=== PATIENT | female | born 1945 | race Caucasian/White ===

== ENCOUNTER → 2018-10-12 10:42 | Outpatient (CLI) | payer MEDICARE, OTHER, SELFPAY ==
--- NOTE | 2018-10-12 | DI.RAD.S_ITS ---
PROCEDURE: XR CERVICAL SPINE 2V OR 3V INDICATIONS: NECK PAIN WITH RADICULOPATHY TECHNIQUE: 5 view(s) of the cervical spine were acquired. COMPARISON: [facility], CERVICAL SPINE 4 OR 5 VIEWS, 08/01/2013, 9:19. FINDINGS: Bones: No fractures or dislocations to the C7 level. Odontoid view is suboptimal. There is moderate degenerative disc disease at T5-T6 and T6-T7. Multilevel facet arthropathy, most pronounced C2-C3, C3-C4 -C5 and C4-C5 on the left, C3-C4, C4-C5 and C5-C6 on the right. No suspicious bony lesions. Flexion and extension, there is reduced range of motion in the lower cervical spine. Soft tissues: No prevertebral soft tissue swelling. IMPRESSION: Degenerative disc and facet disease. Dictated by: Rosalva Walker M.D. on 10/12/2018 at 14:03 Approved by: Rosalva Walker M.D. on 10/12/2018 at 14:06
== END ==
PROVIDERS: Family Provider Family Medicine; PCP Family Medicine; Visit Provider Family Medicine
DX: M47.22 Other spondylosis with radiculopathy, cervical region (principal); M51.14 Intervertebral disc disorders with radiculopathy, thoracic region
CPT/HCPCS: 72050

== ENCOUNTER → 2018-10-20 12:45 | Outpatient (CLI) | payer MEDICARE, OTHER, SELFPAY ==
--- NOTE | 2018-10-20 | DI.MRI.S_ITS ---
PROCEDURE: MR CERVICAL SPINE WO CON INDICATIONS: NECK PAIN TECHNIQUE: Noncontrast sagittal T1 spin echo and T2 fast spin echo, sagittal STIR, foraminal oblique sagittal T2 fast spin echo, and axial gradient echo or T2 fast spin echo through the cervical spine. COMPARISON: [facility], , CERVICAL SPINE 4 OR 5 VIEWS, 08/01/2013, 9:19. [facility], CR, XR CERVICAL SPINE 2V OR 3V, 10/12/2018, 10:52. FINDINGS: Image quality: Excellent. Alignment and Curvature: There is mild anterolisthesis seen at C5-C6. Bone Marrow: Marrow demonstrates normal overall signal. Spinal Cord: Visualized spinal cord has normal size and signal. No cerebellar tonsillar herniation. Paraspinous Soft Tissues: No paravertebral masses. Prevertebral soft tissues are normal in thickness. C2-C3: The disc height is well-preserved. Loss of disc signal is seen at this level. Minimal disc osteophyte complex is seen. No neural foraminal narrowing is seen. Mild central canal narrowing is seen. C3-C4: The disc height is well-preserved. Loss of disc signal is seen at this level. Mild disc osteophyte complex is seen, with a mild central disc osteophyte protrusion, as on series 5 image 18. Mild facet joint hypertrophy is seen. Moderate to severe bilateral neural foraminal narrowing is seen, left worse than right. Moderate central canal narrowing is seen, with associated mass effect upon the ventral spinal cord. C4-C5: The disc height is well-preserved. Loss of disc signal is seen at this level. A mild degree of generalized disc osteophyte complex is seen. There is minimal right-sided and moderate left-sided facet hypertrophy seen. There is mild right-sided and moderate to severe left-sided neural foraminal narrowing seen. Moderate central canal narrowing is seen, with associated mass effect upon the ventral spinal cord. C5-C6: Mild anterolisthesis is seen at this level. Mild loss of disc height is seen. Loss of disc signal is seen. Moderate disc osteophyte complex is seen at this level. There is mild right-sided and moderate left-sided neural foraminal narrowing. Moderate central canal narrowing is seen, with mild associated mass effect upon the ventral spinal cord, as on series 5 image 26. C6-C7: Moderate loss of disc height is seen. Loss of disc signal is seen. Moderate generalized disc osteophyte complex is seen. Mild facet joint hypertrophy is seen. No neural foraminal narrowing is seen. Moderate central canal narrowing is seen. There is associated mass effect upon the ventral spinal cord, as on series 5 image 30. C7-T1: Mild to moderate loss of disc height and disc signal are seen. A mild degree of generalized disc osteophyte complex is seen. No neural foraminal narrowing is seen. Mild central canal narrowing is seen. IMPRESSION: Multiple levels of cervical spine degenerative change are seen, including moderate to severe bilateral neural foraminal narrowing at C3-C4. Moderate central canal narrowing is seen at C3-C4, C4-C5, C5-C6, and C6-C7, with associated mass effect upon the ventral spinal cord. Dictated by: Niels Haines M.D. on 10/20/2018 at 13:56 Approved by: Niels Haines M.D. on 10/20/2018 at 14:02
== END ==
PROVIDERS: Family Provider Family Medicine; PCP Family Medicine; Visit Provider Family Medicine
DX: M54.2 Cervicalgia (principal); M47.812 Spondylosis without myelopathy or radiculopathy, cervical region; M48.02 Spinal stenosis, cervical region
CPT/HCPCS: 72141

== ENCOUNTER → 2018-10-28 10:09 | Outpatient (CLI) | payer MEDICARE, OTHER, SELFPAY | PROVIDERS: PCP Family Medicine; Visit Provider Family Medicine | DX: M54.2 Cervicalgia (principal); M79.603 Pain in arm, unspecified | CPT/HCPCS: 95885; 95886; 95911 ==

== ENCOUNTER → 2018-11-04 08:44 | Outpatient (CLI) | payer MEDICARE, OTHER, SELFPAY ==
--- NOTE | 2018-11-04 | DI.MG.S_ITS ---
BILATERAL DIGITAL SCREENING MAMMOGRAM 3D/2D WITH CAD POST LUMPECTOMY: 11/04/2018 CLINICAL: Routine screening. Personal history of left breast cancer. Family history of breast cancer. Comparison is made to exams dated: 10/26/2017 mammogram, 07/10/2016 mammogram, 10/04/2014 mammogram, and 08/29/2013 mammogram - [facility]. There are scattered fibroglandular elements in both breasts. Current study was also evaluated with a Computer Aided Detection (CAD) system. There are benign post operative findings in the left breast. No significant masses, calcifications, or other findings are seen in either breast. There has been no significant interval change. IMPRESSION: There is no mammographic evidence of malignancy. A 1 year screening mammogram is recommended. This exam was interpreted at Station ID: [id number]. NOTE: For mammograms, a report in lay terms will be sent to the patient. Approximately 15% of breast malignancies will not be visualized mammographically. In the management of a palpable breast mass, a negative mammogram must not discourage biopsy of a clinically suspicious lesion. Electronically Signed By: Florian borjas/apple:11/04/2018 12:52:26 letter sent: Normal Exam ACR BI-RADS Category 2: Benign Finding(s) 3342F
== END ==
PROVIDERS: PCP Family Medicine; Visit Provider Family Medicine
DX: Z12.31 Encounter for screening mammogram for malignant neoplasm of breast (principal); Z85.3 Personal history of malignant neoplasm of breast; Z80.3 Family history of malignant neoplasm of breast
CPT/HCPCS: 77063; 77067

== ENCOUNTER 2019-01-11 11:54 | Day surgery (SDC) | payer MEDICARE, OTHER, SELFPAY ==
[2019-01-11] VITALS (10 sets, daily range): BP systolic 108–141; BP diastolic 34–73; PULSE 61–84; RESP 9–16; TEMP 36.4–36.7; O2SAT 88–98; BMI 29.1
[2019-01-11] MEDS: LACTATED RINGERS 1,000 ML 200 ML IV ×2 (12:39→15:37)
[2019-01-11] MEDS: fentaNYL 250 MCG/5 ML INJ IV ×2 (15:03→15:04)
[2019-01-11] MEDS: MIDAZOLAM 5 MG/5 ML VIAL IV ×2 (15:04→15:05)
--- NOTE | 2019-01-11 15:33 | SUR.PHASEI ---
stable pacu stay, slow to wake up.
--- NOTE | 2019-01-11 15:34 | PM.OP.ENDO ---
Operative Date/Time/Diagnoses Date of procedure: 01/11/19 Time of procedure: 15:00 Pre-op diagnosis: Screening colonoscopy Post-op diagnosis: same Procedure & Clinicians Study performed: Routine screening colonoscopy Same procedure as scheduled: Yes Indications: colorectal cancer screen Surgeon: Daniel Lucero Procedure Notes SCOAP/Timeout: yes Procedure in detail: Patient was given initial sedative with 2 mg of midazolam and 50 of fentanyl. Buttocks were spread perianal area was inspected without abnormality a generously lubricated index finger was used to perform a rectal exam no polyps masses or abnormalities were palpated 160 cm colonoscope was inserted approximately 2 cm through the anal verge. The rectum was insufflated and the scope was then passed through the rectal valves. The rectal sigmoid junction was quite acutely a kinked with some difficulty we were able to cross this. We then moved through a tortuous sigmoid colon into the ascending colon without too much difficulty. the splenic flexure was reached with transmitted cardiac pulsations in the triangular folds of the transverse colon were then encountered. The hepatic flexure was quite acute but with sometime while were able to enter into the right colon. The final segment of the right colon proved to be markedly difficult with a significant paradoxical motion. Dr Bulmaro Goldstein - assisted with the final approach to the cecum. This required manual pressure over the cecum. Withdrawel from cecum was timed at over 10min. No polyps or other neoplastic pathology identified, 2 -3 small sigmoid diverticula identified . prep adiquate. Total Fentanyl 175mcg Total Midazalam 12mg Scope withdrawal time: 12min Specimen(s): none sent Complications: none Impression: No neoplastic changes, several sigmoid diverticula - small Recommendations: Colonscopy in 10 years Plan for aftercare: to pacu and then home Follow up: as needed Disposition: PACU
--- NOTE | 2019-01-11 16:49 | SUR.PHASEII ---
Patient transfered to OPD. VSS. O2 sat on room air 93-98%. Patient awake and talking. Tolerating PO without nausea.
--- NOTE | 2019-01-11 16:50 | SUR.PHASEII ---
1610: O2 sats 88-93% on Room air when VS checked before getting dressed. Desats when dozes off. 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 O2 sat monitoring at bedside.
--- NOTE | 2019-01-11 18:25 | PM.HP.1 ---
History of Present Illness Date Patient Seen: 01/11/19 Time Patient Seen: 13:00 Chief complaint: 33142 Narrative: 73-year-old woman presents for same-day colonoscopy. Patient's last screening colonoscopy was approximately 13 years ago at that time she had no pathology identified and was told to return in approximately 10 years. She is without bowel complaints having regular formed stool. No bleeding per rectum no family members with a history of colorectal cancer history of colon polyps. She is eager to proceed. Patient History Medical History (Updated 01/11/19 @ 18:26 by Daniel Lucero MD) Hyperlipidemia (Acute) Hypertension (Acute) Surgical History (Updated 01/11/19 @ 18:27 by Daniel Lucero MD) Previous section (Acute) Family History (Updated 01/11/19 @ 18:28 by Daniel Lucero MD) Unknown Cancer Social History household members: none Family & Social History Family History (Updated 01/11/19 @ 18:28 by Daniel Lucero MD) Unknown Cancer Social History: household members none Meds Home Medications Medication Instructions Recorded Confirmed Type atorvastatin 20 mg PO QPM 01/11/19 01/11/19 History citalopram 20 mg PO DAILY 01/11/19 01/11/19 History triamterene 37.5 mg PO DAILY 01/11/19 01/11/19 History Allergies Allergy/AdvReac Type Severity Reaction Status Date / Time No Known Drug Allergies Allergy Verified 01/11/19 12:23 Review of Systems Constitutional Constitutional: Denies fever(s) Eyes Eyes: Denies bulging eyes ENT Ears, Nose, Mouth, and Throat: No lip swelling Cardiovascular Cardiovascular: Denies generalize swelling Respiratory Respiratory: Denies stridor Gastrointestinal Gastrointestinal: Denies coffee ground emesis Musculoskeletal Musculoskeletal: Denies loss of height Integumentary/Breasts Skin/Breast: Denies wounds Neurologic Neurologic: Denies abnormal speech and Denies confusion Psychiatric Psychiatric: Denies confusion Endocrine Endocrine: Denies deepening of the voice Hematologic/Lymphatic Hematologic/Lymphatic: Denies lymphadenopathy Allergic/Immunologic Allergic/Immunologic: Denies lip swelling Exam Vital Signs (past 8 hours): - 01/11/19 12:16 01/11/19 15:25 01/11/19 15:30 Temperature 97.8 F 98.1 F Pulse Rate 84 66 67 Respiratory Rate 16 10 L 9 L Blood Pressure 141/73 H 108/42 L 119/50 L Pulse Oximetry 96 97 95 01/11/19 15:35 01/11/19 15:40 01/11/19 15:45 Temperature 97.5 F L Pulse Rate 65 64 61 Respiratory Rate 11 L 10 L 10 L Blood Pressure 109/34 L 125/63 131/62 Pulse Oximetry 97 97 93 01/11/19 16:00 01/11/19 16:10 01/11/19 16:22 Temperature 97.6 F Pulse Rate 65 61 Respiratory Rate 12 14 16 Blood Pressure 116/34 L 118/57 L Pulse Oximetry 96 88 L 98 01/11/19 16:37 Temperature 97.7 F Pulse Rate 76 Respiratory Rate 16 Blood Pressure 121/56 L Pulse Oximetry 97 Oxygen Delivery Method Room Air Oxygen Flow Rate 2 Narrative Exam Narrative: Well-appearing woman no acute distress, excellent historian Mucous membranes moist, sclerae nonicteric, no thyromegaly, No cervical lymphadenopathy Lungs clear to auscultation bilaterally Regular rate and rhythm no murmurs gallops or rubs Abdomen soft nontender nondistended well-healed Pfannenstiel incision. absence of inguinal hernia this or umbilical hernias. Periphery warm and well perfused Assessment & Plan Assessment & Plan narrative: 73-year-old female presents for same-day colonoscopy for screening. Last colonoscopy over 10 years ago and she is due. Risks benefits alternatives discuss risks including perforation, , non identification of the existing polyp her lesion, all discussed. All questions answered, patient is eager to proceed.
== END 2019-01-11 16:45 ==
LOC: ENDO 11:56
PROVIDERS: PCP Family Medicine; Visit Provider Surgery
PROC: 0DJD8ZZ Inspection of Lower Intestinal Tract, Via Natural or Artificial Opening Endoscopic (ICD-10-PCS; CPT 45378; principal; 2019-01-11 14:00)
DX: Z12.11 Encounter for screening for malignant neoplasm of colon (principal); E78.5 Hyperlipidemia, unspecified; I10 Essential (primary) hypertension; K57.30 Diverticulosis of large intestine without perforation or abscess without bleeding
CPT/HCPCS: G0121; J2250; J3010

== ENCOUNTER → 2019-10-04 09:46 | Outpatient (CLI) | payer MEDICARE, OTHER, SELFPAY | PROVIDERS: PCP Family Medicine; Visit Provider Family Medicine | DX: Z78.0 Asymptomatic menopausal state (principal); Z85.3 Personal history of malignant neoplasm of breast; Z87.891 Personal history of nicotine dependence | CPT/HCPCS: 77080 ==

== ENCOUNTER → 2019-11-14 07:40 | Outpatient (CLI) | payer MEDICARE, OTHER, SELFPAY ==
--- NOTE | 2019-11-14 | DI.MG.S_ITS ---
BILATERAL DIGITAL SCREENING MAMMOGRAM 3D/2D WITH CAD POST LUMPECTOMY: 11/14/2019 CLINICAL: Routine screening. Personal history of left breast cancer. Family history of breast cancer. Comparison is made to exams dated: 11/04/2018 mammogram, 10/26/2017 mammogram, and 07/10/2016 mammogram - [facility]. There are scattered fibroglandular elements in both breasts. Current study was also evaluated with a Computer Aided Detection (CAD) system. There are benign post operative findings in the left breast. No significant masses, calcifications, or other findings are seen in either breast. There has been no significant interval change. IMPRESSION: There is no mammographic evidence of malignancy. A 1 year screening mammogram is recommended. This exam was interpreted at Station ID: [id number]. NOTE: For mammograms, a report in lay terms will be sent to the patient. Approximately 15% of breast malignancies will not be visualized mammographically. In the management of a palpable breast mass, a negative mammogram must not discourage biopsy of a clinically suspicious lesion. Electronically Signed By: Suyapa harrington/apple:11/14/2019 21:39:09 letter sent: Normal Exam ACR BI-RADS Category 2: Benign Finding(s) 3342F
== END ==
PROVIDERS: PCP Family Medicine; Referring Provider Family Medicine; Visit Provider Family Medicine
DX: Z12.31 Encounter for screening mammogram for malignant neoplasm of breast (principal); Z85.3 Personal history of malignant neoplasm of breast; Z80.3 Family history of malignant neoplasm of breast
CPT/HCPCS: 77063; 77067

== ENCOUNTER → 2020-02-08 11:44 | Outpatient (CLI) | payer MEDICARE, OTHER, SELFPAY ==
--- NOTE | 2020-02-08 11:45 | DI.RAD.S_ITS ---
PROCEDURE: XR SHOULDER RT MIN 2V INDICATIONS: Chronic progressive shoulder pain TECHNIQUE: 3 views of the shoulder were acquired. COMPARISON: None. FINDINGS: Bones: No fractures or dislocations. No suspicious bony lesions. Visualized ribs appear intact. Soft tissues: No suspicious soft tissue calcifications. 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 Dictated by: David Mark M.D. on 02/08/2020 at 12:09 Approved by: David Mark M.D. on 02/08/2020 at 12:26
== END ==
PROVIDERS: PCP Family Medicine; Referring Provider Physical Medicine & Rehabilitation; Visit Provider Physical Medicine & Rehabilitation
DX: M25.511 Pain in right shoulder (principal); M19.011 Primary osteoarthritis, right shoulder; M75.41 Impingement syndrome of right shoulder; S43.109A Unspecified dislocation of unspecified acromioclavicular joint, initial encounter; M50.00 Cervical disc disorder with myelopathy, unspecified cervical region; G89.29 Other chronic pain
CPT/HCPCS: 20611; 73030; 99213; J0702

== ENCOUNTER → 2020-09-10 17:36 | Outpatient (CLI) | payer MEDICARE, OTHER, SELFPAY ==
--- NOTE | 2020-09-10 17:38 | DI.MRI.S_ITS ---
PROCEDURE: MR HEAD/BRAIN WO/W CON INDICATIONS: SYNCOPE AND COLLAPSE TECHNIQUE: Noncontrast axial T1 spin echo, axial T2 fast spin echo, sagittal and axial FLAIR, coronal T2 fast spin echo, axial gradient echo, axial diffusion and ADC through the brain. After the administration of contrast, axial and coronal T1 spin echo with fat saturation through the brain. COMPARISON: None. FINDINGS: Image quality: Excellent. CSF spaces: Basal cisterns are patent. No extra-axial fluid collections. Ventricles are normal in size and shape. Brain: No midline shift. No intracranial bleeds or masses. No abnormal intracranial enhancement. There is cerebral volume loss for age. There is periventricular white matter chronic small vessel ischemic change. The brainstem appears normal. Diffusion-weighted images demonstrate no acute ischemic insults. No chronic ischemic insults. Normal intravascular flow voids are present. Skull and face: Calvarial marrow is normal in signal. Orbits appear normal. Sinuses: Sinuses and mastoids appear clear. IMPRESSION: Unremarkable intracranial study for age, without an imaging explanation found for the patient's presenting history. No findings of acute or subacute infarction can be seen. No masses or abnormal enhancement can be seen. Dictated by: Niels Haines M.D. on 09/10/2020 at 17:49 Approved by: Niels Haines M.D. on 09/10/2020 at 17:50
== END ==
PROVIDERS: PCP Family Medicine; Referring Provider Family Medicine; Visit Provider Family Medicine
DX: R55 Syncope and collapse (principal)
CPT/HCPCS: 70553; A9579

== ENCOUNTER 2020-09-10 20:52 | Observation (INO) | payer MEDICARE, OTHER, SELFPAY ==
[2020-09-10] VITALS (7 sets, daily range): BP systolic 140–154; BP diastolic 58–74; PULSE 69–87; RESP 15–20; TEMP 37.1; O2SAT 93–97; BMI 25.5
--- NOTE | 2020-09-10 21:05 | DI.RAD.S_ITS ---
PROCEDURE: XR CHEST 1V INDICATIONS: chest pain TECHNIQUE: One view of the chest was acquired. COMPARISON: None. FINDINGS: Surgical changes and devices: Surgical clips are projected over the left hemithorax. Lungs and pleura: Trace airspace opacities are present within the left upper lung. The lungs are otherwise clear. Mediastinum: Mediastinal contours appear normal. Heart size is normal. Bones and chest wall: No suspicious bony lesions. Overlying soft tissues appear unremarkable. IMPRESSION: Subtle left upper lung pulmonary radiopacities. Differential considerations include scar, atelectasis, aspiration/infection. No prior studies are available for comparison. Short interval followup is recommended with resolution of the patient's symptoms to ensure there is no underlying pulmonary pathology. Dictated by: Jazzy Varghese M.D. on 09/10/2020 at 21:59 Approved by: Jazzy Varghese M.D. on 09/10/2020 at 22:01
--- NOTE | 2020-09-10 21:25 | ED.WEAKNESS ---
HPI - Weakness General Chief complaint: Weakness Stated complaint: feels faint,exhausted,headaches past week Time Seen by Provider: 09/10/20 21:07 Source: patient and family Mode of arrival: Family Vehicle Limitations: no limitations History of Present Illness HPI Narrative: 75-year-old female former smoker with a history of hypertension, hyperlipidemia presents with her family and a chief complaint of a gradual decline over the past week or so in her overall health and energy. She had been feeling generally weak and actually had 2 syncopal episodes that seem to be related to change in position about a week ago. She has been nauseated but denies any vomiting and has had a few loose stools but not anything significant. She denies any focal neurologic findings such as blurred vision, trouble with speech or unilateral weakness. She denies any chest pain or shortness of breath. She denies any new medications or change in diet. She denies runny nose, sore throat or cough. She denies any obvious exposure to persons known to have COVID Related Data Home Medications Medication Instructions Recorded Confirmed aspirin 81 mg tablet,delayed 81 mg PO DAILY 02/08/20 09/11/20 release atorvastatin 40 mg tablet mg PO DAILY tab 02/08/20 03/28/20 calcium PO BID 02/08/20 03/28/20 cholecalciferol (vitamin D3) 50 50 mcg PO DAILY 02/08/20 09/11/20 mcg (2,000 unit) capsule escitalopram oxalate 20 mg tablet 20 mg PO BEDTIME 02/08/20 09/11/20 triamterene 37.5 1 cap PO DAILY cap 02/08/20 09/11/20 mg-hydrochlorothiazide 25 mg capsule Previous Rx's Medication Instructions Recorded celecoxib 200 mg capsule See Rx Instructions .ROUTE 06/25/20 .COMPLEX #30 cap Allergies Allergy/AdvReac Type Severity Reaction Status Date / Time No Known Drug Allergies Allergy Verified 09/10/20 21:04 Review of Systems Constitutional Constitutional: Denies chills, Denies fatigue, Denies fever(s), Denies frequent falls, Denies lethargy and Denies weakness Eyes Eyes: Denies change in vision, Denies eye discharge, Denies irritation and Denies loss of vision ENT Ears, Nose, Mouth, and Throat: Denies change in voice, Denies dizziness, Denies neck pain, Denies sore throat and Denies throat swelling Cardiovascular Cardiovascular: Denies chest pain, Denies irregular heart rhythm, Denies lightheadedness, Denies palpitations, Denies dyspnea, Denies dyspnea on exertion and Denies orthopnea Respiratory Respiratory: Denies cough, Denies dyspnea, Denies dyspnea on exertion and Denies wheezing Gastrointestinal Gastrointestinal: Denies abdominal pain, Denies change in bowel habits, Denies diarrhea, Denies nausea and Denies vomiting Musculoskeletal Musculoskeletal: Denies neck pain and Denies numbness Integumentary/Breasts Skin/Breast: Denies pruritus, Denies erythema, Denies rash and Denies wounds Neurologic Neurologic: Denies behavioral changes, Denies confusion, Denies dizziness, Denies frequent falls, Denies loss of vision, Denies numbness and Denies weakness Psychiatric Psychiatric: Denies anxiety, Denies behavioral changes, Denies confusion, Denies depression, Denies homicidal ideation and Denies suicidal ideation Endocrine Endocrine: Denies fatigue, Denies flushing and Denies palpitations Hematologic/Lymphatic Hematologic/Lymphatic: Denies easy bruising Allergic/Immunologic Allergic/Immunologic: Denies urticaria, Denies throat swelling and Denies wheezing Patient History Medical History (Updated 09/11/20 @ 01:13 by Daniela Renee RN) 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 Well-nourished, well-developed patient, in moderate distress. Breathless with exertion. Weak appearing HEAD: Atraumatic. Normocephalic. EYES: Pupils equal round and reactive. Extraocular motions intact. No scleral icterus. No injection or drainage. ENT: Nose without bleeding, purulent drainage. Throat without erythema, tonsillar hypertrophy or exudate. Airway patent. NECK: Trachea midline. Non tender CARDIOVASCULAR: Regular rate and rhythm without murmurs, gallops, or rubs. RESPIRATORY: Clear to auscultation. Breath sounds equal bilaterally. No wheezes, rales, or rhonchi. GASTROINTESTINAL: Abdomen soft, non-tender, nondistended. EXTREMITIES: No edema or joint tenderness. BACK: Nontender without deformity or crepitance. No flank tenderness. NEURO: AOx3. SKIN: No rash or erythema of visible areas Initial Vital Signs Initial Vital Signs: Vital Signs Temperature 98.7 F 09/10/20 20:58 Pulse Rate 87 09/10/20 20:58 Respiratory Rate 18 09/10/20 20:58 Blood Pressure 149/74 H 09/10/20 20:58 Pulse Oximetry 96 09/10/20 20:58 Course Orders Ordered: ED Orders 09/10/20 22:08 COVID19 Stat Sodium Chloride (Normal Saline 0.9%) 1,000 mls @ 150 mls/hr IV CONT KEVIN Last Admin: 09/11/20 05:07 Dose: 150 mls/hr Documented by: Infusion: 09/11/20 04:44 Dose: 150 mls/hr Documented by: Infusion: 09/11/20 00:50 Dose: 150 mls/hr Documented by: Admin: 09/10/20 22:04 Dose: 150 mls/hr Documented by: ALYSE Discontinued Medications Aspirin (Aspirin 81 Mg Chew Tab) 324 mg PO NOW ONE Stop: 09/10/20 21:27 Last Admin: 09/10/20 22:04 Dose: 324 mg Documented by: ALYSE Potassium Chloride 40 meq/ (Sodium Chloride) 520 mls @ 130 mls/hr IV NOW ONE Stop: 09/11/20 03:12 Last Infusion: 09/11/20 04:00 Dose: 0 mls/hr Documented by: GREG Cosigned by: BALTAZAR Infusion: 09/11/20 00:49 Dose: 130 mls/hr Documented by: ALYSE Cosigned by: LEO Admin: 09/10/20 23:48 Dose: 130 mls/hr Documented by: ALYSE Cosigned by: LEO Vital Signs Vital signs: Vital Signs - 8 hr 09/10/20 23:00 Pulse Rate 70 Respiratory Rate 19 Blood Pressure 149/65 H Pulse Oximetry 97 MDM - Weakness Lab Data Result diagrams: 09/11/20 05:45 09/11/20 05:45 Labs: Lab Results 09/10/20 09/10/20 09/10/20 Range/Units 21:35 21:35 21:35 WBC 3.6 L (4.5-11.0) X10^3/uL RBC 3.84 L (4.0-5.2) X10^6/uL Hgb 11.9 L (12.0-16.0) g/dL Hct 34.7 L (36-46) % MCV 90.4 (80-100) fL MCH 30.9 (26-34) PG MCHC 34.2 (30-36) % RDW 13.8 (11.6-14.8) % Plt Count 209 (150-400) X10^3/uL Neut % (Auto) 57.9 (50-75) % Lymph % (Auto) 28.2 (25-40) % [place] % (Auto) 13.0 (3-14) % Eos % (Auto) 0.4 L (2-4) % Baso % (Auto) 0.5 (0-2) % Neut # (Auto) 2100 (6199-3592) /uL Lymph # (Auto) 1000 L (9361-9725) /uL [place] # (Auto) 500 (0-900) /uL Eos # (Auto) 0 (0-450) /uL Baso # (Auto) 0 (0-100) /uL PT 11.7 (10.1-12.7) SECONDS INR 1.0 (0.9-1.3) APTT 30 (26.4-36.2) SECONDS Sodium 135 L (137-145) mmol/L Potassium 3.1 L (3.4-5.1) mmol/L Chloride 101 (98-107) mmol/L Carbon Dioxide 28 (22-32) mmol/L BUN 26 H (7-17) mg/dL Creatinine 0.99 (0.52-1.04) mg/dL Estimated GFR 54.7 L (>60) mL/min BUN/Creatinine Ratio 26.3 H (6-22) Glucose 125 H (80-110) mg/dL Calcium 8.9 (8.4-10.2) mg/dL Magnesium 1.6 (1.6-2.3) mg/dL Total Bilirubin 0.3 (0.2-1.3) mg/dL AST 37 H (14-36) IU/L ALT 25 (<35) IU/L Alkaline Phosphatase 74 (38-126) U/L Total Creatine Kinase 30 (30-135) U/L CK-MB (CK-2) TNP CK-MB (CK-2) Rel Index TNP Troponin I < 0.012 (0.01-0.034) ng/mL NT-Pro-B Natriuret Pep 80 (<450) pg/mL Total Protein 6.8 (6.3-8.2) g/dL Albumin 3.8 (3.5-5.0) g/dL Globulin 3.0 (1.7-4.1) g/dL Albumin/Globulin Ratio 1.3 (1.0-2.8) Lipase 153 (23-300) U/L Procalcitonin (<0.5) ng/mL TSH (0.47-4.68) uIU/mL COVID-19 PCR (Negative) 09/10/20 09/10/20 09/10/20 Range/Units 21:35 21:35 22:08 WBC (4.5-11.0) X10^3/uL RBC (4.0-5.2) X10^6/uL Hgb (12.0-16.0) g/dL Hct (36-46) % MCV (80-100) fL MCH (26-34) PG MCHC (30-36) % RDW (11.6-14.8) % Plt Count (150-400) X10^3/uL Neut % (Auto) (50-75) % Lymph % (Auto) (25-40) % [place] % (Auto) (3-14) % Eos % (Auto) (2-4) % Baso % (Auto) (0-2) % Neut # (Auto) (1196-3996) /uL Lymph # (Auto) (3298-3205) /uL [place] # (Auto) (0-900) /uL Eos # (Auto) (0-450) /uL Baso # (Auto) (0-100) /uL PT (10.1-12.7) SECONDS INR (0.9-1.3) APTT (26.4-36.2) SECONDS Sodium (137-145) mmol/L Potassium (3.4-5.1) mmol/L Chloride (98-107) mmol/L Carbon Dioxide (22-32) mmol/L BUN (7-17) mg/dL Creatinine (0.52-1.04) mg/dL Estimated GFR (>60) mL/min BUN/Creatinine Ratio (6-22) Glucose (80-110) mg/dL Calcium (8.4-10.2) mg/dL Magnesium (1.6-2.3) mg/dL Total Bilirubin (0.2-1.3) mg/dL AST (14-36) IU/L ALT (<35) IU/L Alkaline Phosphatase (38-126) U/L Total Creatine Kinase (30-135) U/L CK-MB (CK-2) CK-MB (CK-2) Rel Index Troponin I (0.01-0.034) ng/mL NT-Pro-B Natriuret Pep (<450) pg/mL Total Protein (6.3-8.2) g/dL Albumin (3.5-5.0) g/dL Globulin (1.7-4.1) g/dL Albumin/Globulin Ratio (1.0-2.8) Lipase (23-300) U/L Procalcitonin < 0.05 (<0.5) ng/mL TSH 1.87 (0.47-4.68) uIU/mL COVID-19 PCR Positive H (Negative) Imaging Data Chest x-ray: Radiologist Impression: [address] [id number] ReportSigned Patient: Sury Oropeza LMR#: [id number]: 5Acct:[id number]/Sex: 75 / FDate of Service: 09/10/20Loc: EDAccession Number: [id number] Procedure: XR chest 1V Ordering Provider: Andres Espinoza D.O. PROCEDURE: XR CHEST 1V INDICATIONS: chest pain TECHNIQUE: One view of the chest was acquired. COMPARISON: None. FINDINGS: Surgical changes and devices: Surgical clips are projected over the left hemithorax. Lungs and pleura: Trace airspace opacities are present within the left upper lung. The lungs are otherwise clear. Mediastinum: Mediastinal contours appear normal. Heart size is normal. Bones and chest wall: No suspicious bony lesions. Overlying soft tissues appear unremarkable. IMPRESSION: Subtle left upper lung pulmonary radiopacities. Differential considerations include scar, atelectasis, aspiration/infection. No prior studies are available for comparison. Short interval followup is recommended with resolution of the patient's symptoms to ensure there is no underlying pulmonary pathology. Dictated by: Jazzy Varghese M.D. on 09/10/2020 at 21:59 Approved by: Jazzy Varghese M.D. on 09/10/2020 at 22:01 Discharge Plan Departure Patient Disposition: Admitted As Inpatient Clinical Impression: COVID-19 virus detected, Hypokalemia Admit Date/Time: 09/10/20 23:14 Admit Provider: Fred Boateng
[2020-09-10 21:49] LABS: Add Manual Diff / Slide Review NO; Basophils Absolute Auto 0 /uL (0-100); Basophils Percent Auto 0.5 % (0-2); Eosinophils Absolute Auto 0 /uL (0-450); Eosinophils Percent Auto 0.4 % (2-4); Hematocrit 34.7 % (36-46); Hemoglobin 11.9 g/dL (12.0-16.0); Lymphocytes Absolute Auto 1000 /uL (1100-4500); Lymphocytes Percent Auto 28.2 % (25-40); Mean Corpuscular HGB Conc 34.2 % (30-36); Mean Corpuscular Hemoglobin 30.9 PG (26-34); Mean Corpuscular Volume 90.4 fL (80-100); Monocytes Absolute Auto 500 /uL (0-900); Neutrophils Absolute Auto 2100 /uL (1500-7000); Neutrophils Percent Auto 57.9 % (50-75); Platelet Count 209 X10^3/uL (150-400); Red Blood Cell Count 3.84 X10^6/uL (4.0-5.2); Red Cell Distribution Width 13.8 % (11.6-14.8); White Blood Cell Count 3.6 X10^3/uL (4.5-11.0)
[2020-09-10] MEDS: SODIUM CHLORIDE 0.9% 1,000 ML 150 ML IV (22:04)
[2020-09-10] MEDS: ASPIRIN 81 MG CHEW TAB 324 MG PO (22:04)
[2020-09-10 22:08] LABS: Alanine Aminotransferase 25 IU/L (<35); Albumin 3.8 g/dL (3.5-5.0); Albumin Globulin Ratio 1.3 (1.0-2.8); Alkaline Phosphatase 74 U/L (38-126); Aspartate Aminotransferase 37 IU/L (14-36); BUN Creatinine Ratio 26.3 (6-22); Bilirubin Total 0.3 mg/dL (0.2-1.3); Blood Urea Nitrogen 26 mg/dL (7-17); Calcium 8.9 mg/dL (8.4-10.2); Carbon Dioxide 28 mmol/L (22-32); Chloride 101 mmol/L (98-107); Creatine Kinase 30 U/L (30-135); Estimated Glomerular Filt Rate 54.7 mL/min (>60); Glucose 125 mg/dL (80-110); HEMOLYSIS < 15 (0-50); Lipase 153 U/L (23-300); Magnesium 1.6 mg/dL (1.6-2.3); Potassium 3.1 mmol/L (3.4-5.1); Prothrombin Time 11.7 SECONDS (10.1-12.7); Sodium 135 mmol/L (137-145); Total Protein 6.8 g/dL (6.3-8.2)
[2020-09-10 22:17] LABS: Procalcitonin < 0.05 ng/mL (<0.5)
[2020-09-10 22:19] LABS: PTT Partial Thromboplastin Tim 30 SECONDS (26.4-36.2)
[2020-09-10 22:20] LABS: NT-proBNP (BNP-Adult 18+) 80 pg/mL (<450); Troponin I < 0.012 ng/mL (0.01-0.034)
[2020-09-10 22:39] LABS: Thyroid Stimulating Hormone 1.87 uIU/mL (0.47-4.68)
[2020-09-10 22:51] LABS: COVID19 -Nasal RAPID POSITIVE (Negative)
[2020-09-10] MEDS: POTASSIUM CHLORIDE 40 MEQ in SODIUM CHLORIDE 0.9% 500 ML 130 ML IV (23:48)
[2020-09-11] VITALS (8 sets, daily range): BP systolic 121–161; BP diastolic 60–66; PULSE 57–76; RESP 16–22; TEMP 36.2–36.8; O2SAT 92–98
[2020-09-11] MEDS: SODIUM CHLORIDE 0.9% 1,000 ML 150 ML IV ×2 (05:07→08:10)
[2020-09-11 06:18] LABS: BUN Creatinine Ratio 23.9 (6-22); Blood Urea Nitrogen 21 mg/dL (7-17); Calcium 8.4 mg/dL (8.4-10.2); Carbon Dioxide 27 mmol/L (22-32); Chloride 108 mmol/L (98-107); Estimated Glomerular Filt Rate > 60.0 mL/min (>60); Glucose 100 mg/dL (80-110); HEMOLYSIS 27 (0-50); Potassium 3.7 mmol/L (3.4-5.1); Sodium 137 mmol/L (137-145)
[2020-09-11 06:22] LABS: Hematocrit 34.3 % (36-46); Hemoglobin 11.7 g/dL (12.0-16.0); Mean Corpuscular HGB Conc 34.1 % (30-36); Mean Corpuscular Volume 90.8 fL (80-100); Platelet Count 205 X10^3/uL (150-400); Red Blood Cell Count 3.78 X10^6/uL (4.0-5.2); White Blood Cell Count 3.3 X10^3/uL (4.5-11.0)
[2020-09-11 06:23] LABS: Add Manual Diff / Slide Review YES
[2020-09-11 07:31] LABS: Neutrophils Absolute Manual 1320 /uL (3000-5900); RBC Morphology Normal Morphology; Total Cells Counted 100
--- NOTE | 2020-09-11 10:14 | PM.HP.1 ---
History of Present Illness History of Present Illness Date Patient Seen: 09/11/20 Time Patient Seen: 10:14 Date of Onset of Symptoms: 09/11/20 Chief complaint: feels faint,exhausted,headaches past week Narrative: 75-year-old female who presents after 7 days of chief complaint of just the Adderall decline weakness and energy. Last week she had 2 episodes of syncopal episodes were she felt as if she just got up and this could move and went down. She thought it was with changing positions but then she went downstairs and passed out. She remembers everything has no other changes. She did not hit her head or have other problems. She has noted that she had this test no energy. She has had no cough no fevers no chills no chest pain no shortness of breath. But just does not feel like she can do much. She has not had any vomiting but has had a little bit of diarrhea. She has not had any headaches visual symptoms. But just does not feel well she does can explain it. She has not been out doing anything. Has no known exposure to COVID. Patient was seen in my clinic and found after evaluation to be certainly in moderate distress but no evidence of respiratory or other changes. She did have some bradycardia EKG showed no other changes she was a little bit orthostatic hypotensive. She was in the process of workup for that when she just was feeling worse and worse and presented to the emergency room. Patient today actually feels maybe slightly better it is hard for to tell she has not been up moving around. She did rest well last night despite being in the hospital. She has had no other significant change or complaint. 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, cervical Hyperlipidemia Hypertension Shoulder impingement syndrome Surgical History Previous section Family & Social History Family History Unknown Cancer Social History: household members family Prior Living Arrangements House Safety & Behavioral: Feels Safe in Current Yes Environment Been Physically Hurt or No Threatened By a Person Suicidal Ideation Description None Suicide Plan Description No Plan Tobacco & Substance use: Smoking Status Former smoker alcohol intake current alcohol intake frequency holiday/special occasion Substance Use Type does not use Meds Home Medications and Allergies Home Medications Medication Instructions Recorded Confirmed Type aspirin 81 mg tablet,delayed 81 mg PO DAILY 02/08/20 09/11/20 History release atorvastatin 40 mg tablet mg PO DAILY tab 02/08/20 03/28/20 History calcium PO BID 02/08/20 03/28/20 History cholecalciferol (vitamin D3) 50 50 mcg PO DAILY 02/08/20 09/11/20 History mcg (2,000 unit) capsule escitalopram oxalate 20 mg tablet 20 mg PO BEDTIME 02/08/20 09/11/20 History triamterene 37.5 1 cap PO DAILY cap 02/08/20 09/11/20 History mg-hydrochlorothiazide 25 mg capsule celecoxib 200 mg capsule See Rx Instructions .ROUTE 06/25/20 09/11/20 Rx .COMPLEX #30 cap Allergies Allergy/AdvReac Type Severity Reaction Status Date / Time No Known Drug Allergies Allergy Verified 09/10/20 21:04 Review of Systems Review of Systems ROS: Yes All systems reviewed with the patient and are negative except as otherwise documented Exam Vital Signs (past 8 hours): - 09/11/20 05:27 09/11/20 08:00 Temperature 97.2 F L 98.2 F Pulse Rate 57 L 64 Respiratory Rate 18 16 Blood Pressure 138/60 121/64 Pulse Oximetry 97 96 Oxygen Delivery Method Room Air Oxygen Flow Rate 0 Narrative Exam Narrative: Alert female fatigued in appearance but less fatigued than previous Patient was seen in full COVID protection. Mucous membranes are moist. Neck supple without adenopathy. Lungs are clear. Heart regular rate and rhythm. Abdomen is soft positive bowel sounds nontender. Extremities without cyanosis clubbing edema. Neurologic exam is completely normal. Reflexes motor she is alert and oriented. Psychologically slightly down but otherwise no changes Objective Labs Result Diagrams: 09/11/20 05:45 09/11/20 05:45 Labs: Laboratory Results - last 24 hr 09/10/20 09/10/20 09/10/20 21:35 21:35 21:35 WBC 3.6 L RBC 3.84 L Hgb 11.9 L Hct 34.7 L MCV 90.4 MCH 30.9 MCHC 34.2 RDW 13.8 Plt Count 209 Neut % (Auto) 57.9 Lymph % (Auto) 28.2 [place] % (Auto) 13.0 Eos % (Auto) 0.4 L Baso % (Auto) 0.5 Neut # (Auto) 2100 Lymph # (Auto) 1000 L [place] # (Auto) 500 Eos # (Auto) 0 Baso # (Auto) 0 Total Counted Seg Neutrophils % Band Neutrophils % Lymphocytes % (Manual) Atypical Lymphs % Monocytes % (Manual) Basophils % (Manual) Neutrophils # (Manual) Plt Morphology Comment RBC Morphology PT 11.7 INR 1.0 APTT 30 Sodium 135 L Potassium 3.1 L Chloride 101 Carbon Dioxide 28 BUN 26 H Creatinine 0.99 Estimated GFR 54.7 L BUN/Creatinine Ratio 26.3 H Glucose 125 H Calcium 8.9 Magnesium 1.6 Total Bilirubin 0.3 AST 37 H ALT 25 Alkaline Phosphatase 74 Total Creatine Kinase 30 CK-MB (CK-2) TNP CK-MB (CK-2) Rel Index TNP Troponin I < 0.012 NT-Pro-B Natriuret Pep 80 Total Protein 6.8 Albumin 3.8 Globulin 3.0 Albumin/Globulin Ratio 1.3 Lipase 153 Procalcitonin TSH COVID-19 PCR 09/10/20 09/10/20 09/10/20 21:35 21:35 22:08 WBC RBC Hgb Hct MCV MCH MCHC RDW Plt Count Neut % (Auto) Lymph % (Auto) [place] % (Auto) Eos % (Auto) Baso % (Auto) Neut # (Auto) Lymph # (Auto) [place] # (Auto) Eos # (Auto) Baso # (Auto) Total Counted Seg Neutrophils % Band Neutrophils % Lymphocytes % (Manual) Atypical Lymphs % Monocytes % (Manual) Basophils % (Manual) Neutrophils # (Manual) Plt Morphology Comment RBC Morphology PT INR APTT Sodium Potassium Chloride Carbon Dioxide BUN Creatinine Estimated GFR BUN/Creatinine Ratio Glucose Calcium Magnesium Total Bilirubin AST ALT Alkaline Phosphatase Total Creatine Kinase CK-MB (CK-2) CK-MB (CK-2) Rel Index Troponin I NT-Pro-B Natriuret Pep Total Protein Albumin Globulin Albumin/Globulin Ratio Lipase Procalcitonin < 0.05 TSH 1.87 COVID-19 PCR Positive H 09/11/20 09/11/20 05:45 05:45 WBC 3.3 L RBC 3.78 L Hgb 11.7 L Hct 34.3 L MCV 90.8 MCH 31.0 MCHC 34.1 RDW 14.0 Plt Count 205 Neut % (Auto) Not Reportable Lymph % (Auto) Not Reportable [place] % (Auto) Not Reportable Eos % (Auto) Not Reportable Baso % (Auto) Not Reportable Neut # (Auto) Lymph # (Auto) Not Reportable [place] # (Auto) Not Reportable Eos # (Auto) Baso # (Auto) Not Reportable Total Counted 100 Seg Neutrophils % 32.0 L Band Neutrophils % 8.0 H Lymphocytes % (Manual) 46.0 H Atypical Lymphs % 5.0 H Monocytes % (Manual) 8.0 Basophils % (Manual) 1.0 Neutrophils # (Manual) 1320 L Plt Morphology Comment RBC Morphology Normal morphology PT INR APTT Sodium 137 Potassium 3.7 Chloride 108 H Carbon Dioxide 27 BUN 21 H Creatinine 0.88 Estimated GFR > 60.0 BUN/Creatinine Ratio 23.9 H Glucose 100 Calcium 8.4 Magnesium Total Bilirubin AST ALT Alkaline Phosphatase Total Creatine Kinase CK-MB (CK-2) CK-MB (CK-2) Rel Index Troponin I NT-Pro-B Natriuret Pep Total Protein Albumin Globulin Albumin/Globulin Ratio Lipase Procalcitonin TSH COVID-19 PCR Assessment & Plan Assessment & Plan narrative: COVID-19. Patient in the moderate category. No respiratory issues. Due to that fact she does not need medication treatment at this time. She does not have any respiratory compromise at this time. Actually looks slightly better than I saw her last time. We discussed this treatment. I think at this point will obtain labs which are recommended and re-evaluate in a.m.. Will begin Lovenox prophylaxis we do not need to treat full dose. Will check D-dimer though. She does not appear to be in any clotting risk at this time but will follow that. If stable and labs are stable will discharge to home. We discussed what we would be looking for an questions. She understands and will follow. Hypertension. Stable continue usual medicine. Hyperlipidemia. Recommendation on review is for continuing statin. Code status full. GI prophylaxis should be low risk. Disposition. Hope she does well and improves. And will re-evaluate if she does not improve will need to reestablish and consider more aggressive treatment. Quality VTE Deep Vein Thrombosis/Pulmonary Embolism Present on Admission: No
[2020-09-11 11:23] LABS: Add Manual Diff / Slide Review NO; Basophils Absolute Auto 0 /uL (0-100); Basophils Percent Auto 0.5 % (0-2); Eosinophils Absolute Auto 0 /uL (0-450); Eosinophils Percent Auto 0.2 % (2-4); Hemoglobin 11.5 g/dL (12.0-16.0); Lymphocytes Absolute Auto 1100 /uL (1100-4500); Mean Corpuscular HGB Conc 33.8 % (30-36); Mean Corpuscular Hemoglobin 30.9 PG (26-34); Mean Corpuscular Volume 91.5 fL (80-100); Monocytes Absolute Auto 400 /uL (0-900); Monocytes Percent Auto 13.1 % (3-14); Neutrophils Absolute Auto 1900 /uL (1500-7000); Neutrophils Percent Auto 54.2 % (50-75); Platelet Count 204 X10^3/uL (150-400); Red Blood Cell Count 3.72 X10^6/uL (4.0-5.2); White Blood Cell Count 3.4 X10^3/uL (4.5-11.0)
--- NOTE | 2020-09-11 11:23 | PC.NURSE ---
Addendum entered by Adelina Gil R.N. 09/11/20 13:09: Patient heplocked, she ate well at lunch. .Will be hanging a mag rider iv and she is now to start oral potassium. She denies pain. Original Note: Assess- Patient is A&Ox3, she states that she is feeling better than before. She is afebrile and her vss. She is a stand by assist to use the bathroom and she has been heplocked per . Denies pain and has a decent appetite. Resting comfortably at this time.
[2020-09-11 11:38] LABS: D Dimer 436 ng/mL (<230)
[2020-09-11 11:41] LABS: BUN Creatinine Ratio 22.2 (6-22); Blood Urea Nitrogen 18 mg/dL (7-17); C-Reactive Protein Quant 2.9 mg/dL (<1.0); Calcium 8.1 mg/dL (8.4-10.2); Carbon Dioxide 27 mmol/L (22-32); Chloride 107 mmol/L (98-107); Estimated Glomerular Filt Rate > 60.0 mL/min (>60); Glucose 102 mg/dL (80-110); HEMOLYSIS < 15 (0-50); Potassium 3.3 mmol/L (3.4-5.1); Sodium 138 mmol/L (137-145)
[2020-09-11] MEDS: ENOXAPARIN 40 MG/0.4 ML SYRINGE SUBCUT (11:41)
[2020-09-11 11:50] LABS: Troponin I < 0.012 ng/mL (0.01-0.034)
[2020-09-11 12:13] LABS: Ferritin 195 ng/mL (11-264)
[2020-09-11] MEDS: POTASSIUM CHLORIDE 20 MEQ TAB 40 MEQ PO ×2 (13:34→20:06)
[2020-09-11] MEDS: MAGNESIUM SULFATE 2 GM/50 ML PIGGYBACK IV (13:34)
[2020-09-11] MEDS: ACETAMINOPHEN 325 MG TABLET 650 MG PO (13:51)
--- NOTE | 2020-09-11 15:41 | CM.DANOTE ---
Discharge Planning/Care Management DCP: assessment: case received, EMR reviewed. COVID + with specialized precautions is noted. Pt is a 75 year old female who admitted late last night to care of PCP: Dr. Boateng. Payer: Medicare and [facility] Medical Admission status: OBS: confirmed by UR BHARAT Reddy Designated support person for this stay: daughter Fiordaliza Deleon: [phone]. Pt is mobilizing to the bathroom with nsg staff at [facility]. DCP team will be following as POC unfolds to assist with any d/c needs that may arise. CM Discharge Assessment Start: 09/11/20 15:40 Freq: Status: Active Protocol: Document 09/11/20 15:40 ITV (Rec: 09/11/20 15:41 ITV [id number]) Discharge Planning Assessment Advance Directives? Yes History Provided By Medical Record Prior Living Arrangements House Independent with ADL's Yes Is patient alert and oriented? Yes
[2020-09-11] MEDS: ESCITALOPRAM 10 MG TABLET 20 MG PO (20:06)
[2020-09-11] MEDS: ATORVASTATIN 20 MG TABLET 40 MG PO (20:06)
--- NOTE | 2020-09-11 22:30 | PC.NURSE ---
Pt resting comfortably in room, denies any COVID symptoms. Encouraged to ambulate as often as possible - has denied shortness of breath with activity. IV saline locked, cooperative with care.
[2020-09-12 02:28] VITALS: BP 124/67; PULSE 72; RESP 20; TEMP 36.1; O2SAT 96
[2020-09-12 06:00] VITALS: BP 130/56; PULSE 62; RESP 20; TEMP 35.9; O2SAT 94
[2020-09-12 06:19] LABS: D Dimer 406 ng/mL (<230)
[2020-09-12 06:26] LABS: C-Reactive Protein Quant 4.2 mg/dL (<1.0); Creatine Kinase < 20 U/L (30-135)
[2020-09-12 06:34] LABS: Troponin I < 0.012 ng/mL (0.01-0.034)
[2020-09-12 08:00] VITALS: BP 129/63; PULSE 66; RESP 17; TEMP 36.8; O2SAT 95
--- NOTE | 2020-09-12 08:51 | PM.DS.1 ---
History of Present Illness History of Present Illness Chief complaint: feels faint,exhausted,headaches past week Discharge Providers Provider Date of admission: 09/10/20 23:14 Discharge Date: 09/12/20 Primary care physician: Fred Boateng MD Discharge provider: Deepali Latham MD Summary Hospital Course Discharge Diagnosis: COVID-19 illness Hypo magnesemia improved Hypokalemia, improved Acute dehydration, improved Hospital Course: Patient is a very healthy 75-year-old female who is medical problems include hyperlipidemia and hypertension who developed symptoms of syncope in and initially had diarrhea and presented to the ER for the same and was found to have COVID-19 illness. Due to changes on x-ray a.m. and laboratory data including mildly elevated C reactive protein and D-dimer but normal ferritin patient was admitted to the hospital. Patient stayed 2 nights. Patient did not require any oxygen. Patient received IV fluid hydration and magnesium and on hospital day 2. Patient was feeling remarkably better. Patient was discharged home in stable condition. Patient did not require oxygen during hospitalization patient was treated with Lovenox. Status at Discharge Cognitive/behavioral status at discharge: oriented Functional status at discharge: independent ambulation Overall status at discharge: patient is progressing back to baseline Exam Vital Signs (past 8 hours): - 09/12/20 02:28 09/12/20 06:00 Temperature 96.9 F L 96.6 F L Pulse Rate 72 62 Respiratory Rate 20 20 Blood Pressure 124/67 130/56 L Pulse Oximetry 96 94 Oxygen Delivery Method Room Air Oxygen Flow Rate 0 Narrative Exam Narrative: Afebrile vital signs are stable HEENT unremarkable Neck: Supple without adenopathy Chest: Clear to auscultation without wheezes rhonchi or crackles Cor: Regular rate and rhythm without murmur Abdomen: Positive bowel sounds, soft Extremities no edema, pulses intact Objective Labs Result Diagrams: 09/11/20 11:10 09/11/20 11:10 Labs: Laboratory Results - last 24 hr 09/11/20 09/11/20 09/11/20 11:10 11:10 11:10 WBC 3.4 L RBC 3.72 L Hgb 11.5 L Hct 34.0 L MCV 91.5 MCH 30.9 MCHC 33.8 RDW 14.0 Plt Count 204 Neut % (Auto) 54.2 Lymph % (Auto) 32.0 [place] % (Auto) 13.1 Eos % (Auto) 0.2 L Baso % (Auto) 0.5 Neut # (Auto) 1900 Lymph # (Auto) 1100 [place] # (Auto) 400 Eos # (Auto) 0 Baso # (Auto) 0 D-Dimer 436 H Sodium 138 Potassium 3.3 L Chloride 107 Carbon Dioxide 27 BUN 18 H Creatinine 0.81 Estimated GFR > 60.0 BUN/Creatinine Ratio 22.2 H Glucose 102 Calcium 8.1 L Ferritin 195 Total Creatine Kinase Troponin I < 0.012 C-Reactive Protein 2.9 H 09/12/20 09/12/20 09/12/20 06:00 06:00 06:00 WBC RBC Hgb Hct MCV MCH MCHC RDW Plt Count Neut % (Auto) Lymph % (Auto) [place] % (Auto) Eos % (Auto) Baso % (Auto) Neut # (Auto) Lymph # (Auto) [place] # (Auto) Eos # (Auto) Baso # (Auto) D-Dimer 406 H Sodium Potassium Chloride Carbon Dioxide BUN Creatinine Estimated GFR BUN/Creatinine Ratio Glucose Calcium Ferritin Total Creatine Kinase < 20 L Troponin I < 0.012 C-Reactive Protein 4.2 H [facility] Medical History 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 Hypo magnesemia improved Hypokalemia improved potassium is pending today Plan of Treatment: Discharged home in stable condition Routine instructions given regarding infectious spread and core in [place] as well as worsening symptoms Follow-up with Dr. Boateng via tele med next week Continue outpatient medications of atorvastatin, escitalopram, triamterene hydrochlorothiazide, aspirin Discharge Plan Discharge Plan Patient Disposition: Home Discharge orders & Medications Prescriptions: Continued celecoxib 200 mg capsule See Rx Instructions .ROUTE .COMPLEX Qty: 30 RF: 2 escitalopram oxalate 20 mg tablet 20 mg PO BEDTIME RF: 0 calcium PO BID RF: 0 aspirin [Adult Aspirin Regimen] 81 mg tablet,delayed release (DR/EC) 81 mg PO DAILY RF: 0 cholecalciferol (vitamin D3) 50 mcg (2,000 unit) capsule 50 mcg PO DAILY RF: 0 atorvastatin 40 mg tablet 40 mg PO DAILY RF: 0 triamterene-hydrochlorothiazid 37.5-25 mg capsule 1 cap PO DAILY RF: 0 Follow up/Referrals: Fred Boateng MD [Primary Care Provider] - Diet/Activity/Treatments Diet: Diet as Tolerated Discharge Data Primary Care Provider: Fred Boateng Attending Provider: Fred Boateng Quality VTE Deep Vein Thrombosis/Pulmonary Embolism Present on Admission: No
[2020-09-12] MEDS: SODIUM CHLORIDE 0.9% FLUSH 10 ML IV (09:01)
[2020-09-12] MEDS: ENOXAPARIN 40 MG/0.4 ML SYRINGE SUBCUT (09:01)
--- NOTE | 2020-09-12 10:41 | PC.NURSE ---
Addendum entered by Adelina Gil R.N. 09/12/20 13:37: Pt signed paperwork to discharge home, not removed from room as she was covid +. Out to car with senior customer service representative and daughter picked patient up. Original Note: Patient is going to go home today, her ls are cta and she is up moving independently. No syncopal episodes. Awaiting a lab draw for a cmp and then will go home.
[2020-09-12 12:00] VITALS: BP 135/54; PULSE 60; RESP 17; TEMP 36.9; O2SAT 98
[2020-09-12 12:46] LABS: Alanine Aminotransferase 23 IU/L (<35); Albumin 3.6 g/dL (3.5-5.0); Albumin Globulin Ratio 1.2 (1.0-2.8); Alkaline Phosphatase 76 U/L (38-126); Aspartate Aminotransferase 33 IU/L (14-36); BUN Creatinine Ratio 19.8 (6-22); Bilirubin Total 0.3 mg/dL (0.2-1.3); Blood Urea Nitrogen 16 mg/dL (7-17); Calcium 8.7 mg/dL (8.4-10.2); Carbon Dioxide 28 mmol/L (22-32); Chloride 106 mmol/L (98-107); Estimated Glomerular Filt Rate > 60.0 mL/min (>60); Glucose 97 mg/dL (80-110); HEMOLYSIS < 15 (0-50); Potassium 4.1 mmol/L (3.4-5.1); Sodium 138 mmol/L (137-145); Total Protein 6.6 g/dL (6.3-8.2)
== END 2020-09-12 13:27 | disposition home or self-care (01) ==
LOC: ED 23:08 → AC 23:16
PROVIDERS: Family Medicine; Admitting Provider Family Medicine; Emergency Provider Emergency Medicine; PCP Family Medicine; Referring Provider Emergency Medicine; Visit Provider Family Medicine
DX: U07.1 COVID-19 (principal); R53.1 Weakness; R51.9 Headache, unspecified; R55 Syncope and collapse; R11.0 Nausea; E86.0 Dehydration; E87.5 Hyperkalemia; E83.42 Hypomagnesemia; E78.5 Hyperlipidemia, unspecified; I10 Essential (primary) hypertension
CPT/HCPCS: 36415; 70553; 71045; 80048; 80053; 82550; 82728; 83690; 83735; 83880; 84145; 84443; 84484; 85007; 85025; 85379; 85610; 85730; 86140; 87635; 93005; 94762; 96361; 96365; 96366; 96367; 96372; 99284; G0378; A9579; J1650; J3480

== ENCOUNTER → 2020-10-03 09:06 | Outpatient (CLI) | payer MEDICARE, OTHER, SELFPAY ==
[2020-09-10 23:54] VITALS: BMI 25.5
--- NOTE | 2020-10-03 | DI.ECHO.S_ITS ---
[facility] +---------+ : : [address] : [place] : : : : [id number] : : : : Phone: [phone]+ Echocardiogram Report + + :Name: JING FERNANDEZ Study Date: 10/03/2020 Height: 60 in : :[facility] Weight: 131 lb : : Gender: Female BSA: 1.6 m2 : :: 1945 Age: 75 yrs BP: 126/67 mmHg: :Reason For Study: CARDIAC MURMUR : :Ordering Physician: MALOU, : :JOSÉ MIGUEL Performed By: Jessie Hill : :Referring: JOSÉ MIGUEL [place] : + + Interpretation Summary Left ventricular systolic function is normal with an estimated ejection fraction of 60 to 65% without any focal wall motion abnormality. Left ventricular size and wall thickness appear normal. Diastolic function is likely normal with normal filling pressures. The right ventricle appears normal in size and systolic function. Right ventricular systolic pressure cannot be estimated but the CVP is likely around 3 mmHg. Both atria are normal in size. There is mild mitral and aortic valve calcific sclerosis but no significant functional abnormality. There is no significant valvular abnormality identified. Procedure: A two-dimensional transthoracic echocardiogram with color flow and Doppler was performed. The study quality was technically difficult. There is no prior echocardiogram noted for this patient. A contrast injection of Definity was performed to improve assessment of LV function. Definity used after patient education and consent. Patient denied any symptoms after the use of Definity. Contrast was injected into an intravenous site in the right arm. The heart rate ranged between 57-95 bpm during the study. Left Ventricle: The left ventricle appears normal in size, wall thickness, and systolic function without any focal wall motion abnormalities. The estimated left ventricular end diastolic volume is 72 ml. The ejection fraction is estimated to be 60-65%. Diastolic parameters suggest probable normal left ventricular diastolic function and normal filling pressures. Right Ventricle: The right ventricle is normal in size and function. Atria: Both atria are normal in size. There is no Doppler evidence for an interatrial shunt. Mitral Valve: There is mild to moderate mitral annular calcification. The mitral valve leaflets appear mildly thickened, but open well. There is trace mitral regurgitation. Aortic Valve: The aortic valve is trileaflet. The aortic valve is mildly calcified. The aortic valve opens well. There is no aortic valve stenosis. No aortic regurgitation is present. Tricuspid Valve: The tricuspid valve is not well visualized, but is grossly normal. There is trace tricuspid regurgitation. Pulmonary artery pressures cannot be estimated because of the lack of a measurable TR jet velocity but the IVC suggests a CVP of around 3 mmHg. Pulmonic Valve: The pulmonic valve leaflets are thin and pliable; valve motion is normal. There is trace pulmonic regurgitation. There is no significant valvular heart disease. Great Vessels: The aortic root is normal size. The dimensions of the ascending aorta are normal. The IVC is of normal diameter and collapses greater than 50% with a sniff. This suggests a low right atrial pressure of 3 mm Hg. Pericardium/ Pleura There is no pericardial effusion. There is no pleural effusion. MMode/2D Measurements & Calculations LVIDd: 3.5 cm LVOT diam: 2.1 cm LVIDs: 2.4 cm Ao root diam: 2.5 cm FS: 31.9 % asc Aorta Diam: 3.1 cm EPSS: 0.38 cm Ao Arch Diam (Prox Trans): 2.4 cm IVSd: 1.1 cm LVPWd: 0.90 cm LV cosby. diameter/BSA (cm/m^2): 2.2 LV sys. diameter/BSA (cm/m^2): 1.5 LA A2 area: 16.9 cm2 RA long axis: 3.4 cm LA A4 area: 11.7 cm2 RA area: 8.9 cm2 LA length (vol): 4.9 cm RA vol: 20.0 ml LA vol: 34.4 ml RA : 12.8 ml/m2 LA vol index: 22.1 ml/m2 IVC diam: 1.1 cm RVD1 (basal): 2.9 cm TAPSE: 2.2 cm Doppler Measurements & Calculations Ao V2 max: 121.9 cm/sec LVOT Max Fernie: 103.9 cm/sec Ao V2 mean: 88.7 cm/sec LV V1 max P.3 mmHg Ao max P.9 mmHg LV V1 VTI: 25.4 cm Ao mean P.4 mmHg WANDA(I,D): 3.0 cm2 Ao V2 VTI: 28.1 cm WANDA(V,D): 2.8 cm2 sev ratio: 0.91 WANDA indexed to BSA (cm^2/m^2): 1.9 MV E max fernie: 66.6 cm/sec PA V2 max: 55.2 cm/sec MV A max fernie: 80.3 cm/sec PA V2 mean: 36.4 cm/sec MV E/A: 0.83 PA mean P.62 mmHg Med Peak E' Fernie: 10.2 cm/sec PA pr(Accel): 7.1 mmHg E/E' med: 6.5 Lat Peak E' Fernie: 9.3 cm/sec E/E' lat: 7.2 E/e' average: 6.9 MV dec time: 0.23 sec SV(LVOT): 85.0 ml Reading Physician:12:36 PM
== END ==
PROVIDERS: PCP Family Medicine; Referring Provider Family Medicine; Visit Provider Family Medicine
DX: R01.1 Cardiac murmur, unspecified (principal)
CPT/HCPCS: 93306; Q9957

== ENCOUNTER → 2020-11-20 12:12 | Outpatient (CLI) | payer MEDICARE, OTHER, SELFPAY ==
[2020-09-10 23:54] VITALS: BMI 25.5
--- NOTE | 2020-11-20 12:13 | DI.MG.S_ITS ---
BILATERAL DIGITAL SCREENING MAMMOGRAM 3D/2D WITH CAD POST LUMPECTOMY: 11/20/2020 CLINICAL: Routine screening. Family history of breast cancer. Breast cancer. Comparison is made to exams dated: 11/14/2019 mammogram, 11/04/2018 mammogram, 10/26/2017 mammogram, 07/10/2016 mammogram, 10/04/2014 mammogram, and 08/29/2013 mammogram - [facility]. There are scattered fibroglandular elements in both breasts. Current study was also evaluated with a Computer Aided Detection (CAD) system. There are benign post operative findings in the left breast. No significant masses, calcifications, or other findings are seen in either breast. There has been no significant interval change. IMPRESSION: BENIGN There is no mammographic evidence of malignancy. A 1 year screening mammogram is recommended. This exam was interpreted at Station ID: [id number]. NOTE: For mammograms, a report in lay terms will be sent to the patient. Approximately 15% of breast malignancies will not be visualized mammographically. In the management of a palpable breast mass, a negative mammogram must not discourage biopsy of a clinically suspicious lesion. Electronically Signed By: Layton walker/apple:11/20/2020 16:43:39 letter sent: Normal Exam ACR BI-RADS Category 2: Benign Finding(s) 3342F
== END ==
PROVIDERS: PCP Family Medicine; Referring Provider Family Medicine; Visit Provider Family Medicine
DX: Z12.31 Encounter for screening mammogram for malignant neoplasm of breast (principal); Z85.3 Personal history of malignant neoplasm of breast; Z80.3 Family history of malignant neoplasm of breast
CPT/HCPCS: 77063; 77067

== ENCOUNTER → 2021-08-05 08:40 | Outpatient (CLI) | payer MEDICARE, OTHER, SELFPAY ==
[2020-09-10 23:54] VITALS: BMI 25.5
--- NOTE | 2021-08-05 | DI.RAD.S_ITS ---
PROCEDURE: XR CHEST 2V INDICATIONS: Chronic cough TECHNIQUE: 2 views of the chest were acquired. COMPARISON: [facility], , XR CHEST 1V, 09/10/2020, 21:51. FINDINGS: Surgical changes and devices: Left breast and axillary clips. Lungs and pleura: Left upper lobe opacity. No pleural effusions or pneumothorax. Mediastinum: Mediastinal contours appear unchanged. Heart size is within normal limits. Bones and chest wall: No suspicious bony abnormalities. Soft tissues appear unremarkable. IMPRESSION: Left upper lobe opacity. This appears new or increased compared to August 2020. Suspect pneumonia or radiation fibrosis. This could be further characterized with CT chest. Dictated by: Layton Contreras M.D. on 08/05/2021 at 10:00 Approved by: Layton Contreras M.D. on 08/05/2021 at 10:03
== END ==
PROVIDERS: PCP Family Medicine; Referring Provider Family Medicine; Visit Provider Family Medicine
DX: R05.3 Chronic cough (principal); R06.2 Wheezing; J98.4 Other disorders of lung
CPT/HCPCS: 71046

== ENCOUNTER → 2021-08-09 09:39 | Outpatient (CLI) | payer MEDICARE, OTHER, SELFPAY ==
[2020-09-10 23:54] VITALS: BMI 25.5
--- NOTE | 2021-08-09 | DI.CT.S_ITS ---
PROCEDURE: CT CHEST W CON INDICATIONS: Other nonspecific abnormal finding of lung field TECHNIQUE: After the administration of intravenous contrast, 5 mm thick sections acquired from the pulmonary apices to the posterior costophrenic angles. 1 mm axial lung, 5 mm thick coronal and sagittal reformats and 7 mm axial MIP were acquired. For radiation dose reduction, the following was used: automated exposure control, adjustment of mA and/or kV according to patient size. COMPARISON: [facility], CR, XR CHEST 1V, 09/10/2020, 21:51. [facility], CR, XR CHEST 2V, 08/05/2021, 8:40. FINDINGS: Lungs: Airway thickening in keeping with nonspecific bronchitis and/or reactive airways disease. Scattered subsegmental atelectasis and/or scarring. No focal consolidation. Dense consolidation present in left upper lobe, areas masslike appearance measuring up to 5.0 x 4.1 cm. There is associated bronchiolectasis and scattered ground-glass opacities the periphery. Pleura: No pleural effusion or pneumothorax. Heart: Normal in size. No pericardial effusion. Mild coronary arthrosclerosis Chest nodes: Normal. Thyroid gland: Unremarkable Aorta: Normal in size. Scattered atheromatous calcifications in the aorta. Pulmonary arteries: Normal. Esophagus: Normal. Upper abdomen and chest wall: Postsurgical changes involving the left breast with some skin thickening. There also clips in the axilla on the left. Bones: No compression fracture. Diffuse spondylitic changes and facet arthropathy. Scattered small Schmorl's nodes. IMPRESSION: Interval development of dense consolidation and ill-defined surrounding peripheral ground-glass opacities involving the left upper lobe as detailed above. Background fibrotic changes including traction bronchiolectasis noted. There is overlying postsurgical change involving the left breast and the findings could represent post therapeutic sequela such as radiation pneumonitis. Please correlate clinically to exclude underlying infection or primary bronchogenic carcinoma. Recommend continued surveillance to document resolution or long-term stability. Dictated by: Romeo Simpson M.D. on 08/09/2021 at 11:13 Approved by: Romeo Simpson M.D. on 08/09/2021 at 11:24
== END ==
PROVIDERS: PCP Family Medicine; Referring Provider Family Medicine; Visit Provider Family Medicine
DX: R91.8 Other nonspecific abnormal finding of lung field (principal)
CPT/HCPCS: 71260; Q9967

== ENCOUNTER → 2021-09-09 15:05 | Outpatient (CLI) | payer MEDICARE, OTHER, SELFPAY ==
[2020-09-10 23:54] VITALS: BMI 25.5
--- NOTE | 2021-09-09 15:08 | DI.CT.S_ITS ---
PROCEDURE: CT CHEST WO CON INDICATIONS: Other nonspecific abnormal finding of lung field TECHNIQUE: Noncontrast 5 mm thick sections acquired from the pulmonary apices to the posterior costophrenic angles. 1 mm lung window, 5 mm thick coronal and sagittal and 7 mm axial MIP reformats were then acquired. For radiation dose reduction, the following was used: automated exposure control, adjustment of mA and/or kV according to patient size. COMPARISON: [facility], CR, XR CHEST 2V, 08/05/2021, 8:40. [facility], CR, XR CHEST 1V, 09/10/2020, 21:51. [facility], CT, CT CHEST W CON, 08/09/2021, 10:16. FINDINGS: Image quality: Excellent. Lungs and pleura: Moderate to large size consolidation in the left upper lobe with air bronchograms. This is not significantly changed in size compared to CT 08/09/2021. Opacity in this region is faintly visualized on the CXR from August 2020. There is left upper lobe volume loss. There is mild left upper lobe bronchiectasis. The central airways are clear. No pleural effusions or pneumothorax. Mediastinum: Heart size is normal. Three-vessel coronary artery calcifications. No pericardial effusion. No mediastinal adenopathy by size criteria. Thoracic aorta and central pulmonary arteries are normal in size. Esophagus is normal in caliber. No hiatal hernia. Bones and chest wall: There are postsurgical changes in the left breast. There is minimal thickening along the left chest wall which is unchanged in the short-term interval. No suspicious bony lesions. No vertebral body compression fractures. No axillary or supraclavicular adenopathy by size criteria. Left axillary clips. Thyroid gland is unremarkable. Abdomen: Visualized upper abdominal solid organs and bowel loops appear normal in the absence of contrast. IMPRESSION: 1. Left upper lobe consolidation with volume loss, air bronchograms, and mild bronchiectasis is unchanged in the short-term interval. Findings most likely due to post radiation changes. It is difficult to exclude underlying infection or malignancy. Consider follow-up CT chest in 6-12 months. Alternately, if high suspicion for underlying malignancy PET/CT could be performed. 2. Stable appearance of the postoperative changes at the left breast and left axilla. No enlarged lymph nodes seen. Dictated by: Layton Contreras M.D. on 09/09/2021 at 16:56 Approved by: Layton Contreras M.D. on 09/09/2021 at 17:10
== END ==
PROVIDERS: PCP Family Medicine; Referring Provider Family Medicine; Visit Provider Family Medicine
DX: R91.8 Other nonspecific abnormal finding of lung field (principal); J47.9 Bronchiectasis, uncomplicated
CPT/HCPCS: 71250

== ENCOUNTER → 2021-10-17 08:22 | Outpatient (ROUT) | payer MEDICARE, OTHER, SELFPAY ==
[2020-09-10 23:54] VITALS: BMI 25.5
[2021-10-17 09:51] LABS: COVID-19 CEPHEID PCR (VTM/NP) Negative (Negative)
== END ==
PROVIDERS: PCP Family Medicine; Visit Provider Family Medicine
DX: Z11.52 Encounter for screening for COVID-19 (principal)
CPT/HCPCS: U0003

== ENCOUNTER → 2022-02-12 14:31 | Outpatient (ROUT) | payer MEDICARE, OTHER, SELFPAY ==
[2020-09-10 23:54] VITALS: BMI 25.5
[2022-02-12 15:31] LABS: Influenza A - CEPHEID Flu A NEGATIVE (NEGATIVE); Influenza B - CEPHEID Flu B NEGATIVE (NEGATIVE)
[2022-02-12 15:38] LABS: COVID-19 CEPHEID PCR (VTM/NP) Negative (Negative)
== END ==
PROVIDERS: PCP Family Medicine; Visit Provider Family Medicine
DX: M79.10 Myalgia, unspecified site (principal); R05.9 Cough, unspecified; Z20.822 Contact with and (suspected) exposure to COVID-19
CPT/HCPCS: 0240U

== ENCOUNTER → 2022-02-12 17:35 | Outpatient (CLI) | payer MEDICARE, OTHER, SELFPAY ==
[2020-09-10 23:54] VITALS: BMI 25.5
--- NOTE | 2022-02-12 17:40 | DI.RAD.S_ITS ---
PROCEDURE: XR CHEST 2V INDICATIONS: LEFT CHEST PAIN TECHNIQUE: 2 views of the chest were acquired. COMPARISON: [facility], CR, XR CHEST 1 VIEW, 10/21/2021, 14:32. [facility], CR, XR CHEST 1 VIEW, 11/14/2021, 13:15. FINDINGS: Surgical changes and devices: Multiple left breast and left axilla surgical clips. Lungs and pleura: Increased opacification noted in the left lung with masslike consolidation in the left perihilar region. Small left-sided pleural effusion. No pneumothorax. Mediastinum: Mediastinal contours are normal. Heart size is normal. Bones and chest wall: No suspicious bony abnormalities. Soft tissues appear unremarkable. IMPRESSION: Left lung opacification not significantly changed compared to November 14, 2021. Finding may be related to post radiation change. Small left-sided pleural fluid collection. Dictated by: Lindsey Gordillo MD, PhD on 02/13/2022 at 12:20 Approved by: Lindsey Gordillo MD, PhD on 02/13/2022 at 12:23
[2022-02-12 18:08] LABS: Add Manual Diff / Slide Review NO; Basophils Absolute Auto 0 /uL (0-100); Basophils Percent Auto 0.3 % (0-2); Eosinophils Absolute Auto 0 /uL (0-450); Eosinophils Percent Auto 0.1 % (2-4); Hematocrit 36.1 % (36-46); Hemoglobin 12.4 g/dL (12.0-16.0); Lymphocytes Absolute Auto 200 /uL (1100-4500); Lymphocytes Percent Auto 6.3 % (25-40); Mean Corpuscular HGB Conc 34.2 % (30-36); Mean Corpuscular Hemoglobin 31.5 PG (26-34); Mean Corpuscular Volume 92.1 fL (80-100); Monocytes Absolute Auto 300 /uL (0-900); Neutrophils Absolute Auto 3000 /uL (1500-7000); Neutrophils Percent Auto 84.3 % (50-75); Platelet Count 251 X10^3/uL (150-400); Red Blood Cell Count 3.92 X10^6/uL (4.0-5.2); White Blood Cell Count 3.6 X10^3/uL (4.5-11.0)
[2022-02-12 18:10] LABS: Hemoglobin A1C% w Est Avg Glu 5.6 % (4.0-6.0)
[2022-02-12 18:29] LABS: Alanine Aminotransferase 20 IU/L (<35); Albumin 4.2 g/dL (3.5-5.0); Albumin Globulin Ratio 1.3 (1.0-2.8); Alkaline Phosphatase 65 U/L (38-126); Aspartate Aminotransferase 28 IU/L (14-36); BUN Creatinine Ratio 24.5 (6-22); Bilirubin Total 0.9 mg/dL (0.2-1.3); Blood Urea Nitrogen 25 mg/dL (7-17); Calcium 9.8 mg/dL (8.4-10.2); Carbon Dioxide 25 mmol/L (22-32); Chloride 104 mmol/L (98-107); Estimated Glomerular Filt Rate 57 mL/min (>60); Globulin 3.2 g/dL (1.7-4.1); Glucose 121 mg/dL (80-110); HEMOLYSIS < 15 (0-50); Potassium 4.4 mmol/L (3.4-5.1); Sodium 137 mmol/L (137-145); Total Protein 7.4 g/dL (6.3-8.2)
== END ==
PROVIDERS: PCP Family Medicine; Referring Provider Family Medicine; Visit Provider Family Medicine
DX: R07.89 Other chest pain (principal); J90 Pleural effusion, not elsewhere classified; M79.10 Myalgia, unspecified site; R05.9 Cough, unspecified; Z20.822 Contact with and (suspected) exposure to COVID-19
CPT/HCPCS: 0240U; 36415; 71046; 80053; 83036; 85025

== ENCOUNTER → 2022-08-28 09:20 | Outpatient (CLI) | payer MEDICARE, OTHER, SELFPAY ==
[2020-09-10 23:54] VITALS: BMI 25.5
--- NOTE | 2022-08-28 | DI.ECHO.S_ITS ---
[facility]---------[facility] +---------+ : : [address] : [address] [place] : : : : [id number] : : : : Phone: [phone]---------+ Echocardiogram Report + + :Name: JING FERNANDEZ Study Date: 08/28/2022 Height: 60 in : :[facility] ReadingLocation: Weight: 130 lb: : Gender: Female BSA: 1.6 m2 : :: 1945 Age: 77 yrs : :Reason For Study: Pericardial Effusion : :Ordering Physician: ESTELLA, : :MAY Quick Performed By: Trever Killian : :Referring: MAY GARCIA : + + Interpretation Summary There is a small to moderate pericardial effusion noted. There are no echocardiographic or Doppler indications for cardiac tamponade. Compared to the prior study dated 07/03/2022, no change in size of the pericardial effusion. Procedure: A two-dimensional transthoracic echocardiogram with color flow and Doppler was performed in limited views only. The study quality was technically adequate. Comparison is made with the echocardiogram of 07/03/2022. The patient was in normal sinus rhythm during the exam. Left Ventricle: The left ventricular cavity is small. There is mild concentric left ventricular hypertrophy. Left ventricular systolic function is normal. The ejection fraction is estimated to be 65-70%. There are no focal wall motion abnormalities. Right Ventricle: The right ventricle is normal in size and function. Atria: Both atria are normal in size. Mitral Valve: The mitral valve is normal. Aortic Valve: The aortic valve opens well. Tricuspid Valve: The tricuspid valve is normal. Great Vessels: The IVC is of normal diameter and collapses greater than 50% with a sniff. This suggests a low right atrial pressure of 3 mm Hg. Pericardium/ Pleura There is a small to moderate pericardial effusion noted. There are no echocardiographic or Doppler indications for cardiac tamponade. MMode/2D Measurements & Calculations LVIDd: 3.8 cm LVIDs: 2.0 cm FS: 47.6 % IVSd: 1.2 cm LVPWd: 0.90 cm LV cosby. diameter/BSA (cm/m^2): 2.4 LV sys. diameter/BSA (cm/m^2): 1.3 Reading Physician:01:01 PM
== END ==
PROVIDERS: PCP Family Medicine; Referring Provider Internal Medicine Cardiovascular Disease; Visit Provider Internal Medicine Cardiovascular Disease
DX: I31.39 Other pericardial effusion (noninflammatory) (principal)
CPT/HCPCS: 93307

== ENCOUNTER → 2022-10-21 11:30 | Outpatient (ROUT) | payer MEDICARE, OTHER, SELFPAY ==
[2020-09-10 23:54] VITALS: BMI 25.5
[2022-10-21 11:58] LABS: INR 1.3 (0.9-1.3); Prothrombin Time 15.5 SECONDS (10.1-12.7)
== END ==
PROVIDERS: PCP Family Medicine; Visit Provider Family Medicine
DX: I26.99 Other pulmonary embolism without acute cor pulmonale (principal); R06.02 Shortness of breath
CPT/HCPCS: 85610

== ENCOUNTER → 2022-10-28 09:17 | Outpatient (ROUT) | payer MEDICARE, OTHER, SELFPAY ==
[2020-09-10 23:54] VITALS: BMI 25.5
[2022-10-28 09:25] LABS: Add Manual Diff / Slide Review NO; Basophils Absolute Auto 100 /uL (0-100); Eosinophils Absolute Auto 100 /uL (0-450); Eosinophils Percent Auto 2.1 % (2-4); Hemoglobin 10.9 g/dL (12.0-16.0); Lymphocytes Absolute Auto 700 /uL (1100-4500); Lymphocytes Percent Auto 9.3 % (25-40); Mean Corpuscular HGB Conc 32.1 % (30-36); Mean Corpuscular Hemoglobin 28.7 PG (26-34); Mean Corpuscular Volume 89.3 fL (80-100); Monocytes Absolute Auto 500 /uL (0-900); Neutrophils Absolute Auto 5800 /uL (1500-7000); Neutrophils Percent Auto 80.6 % (50-75); Platelet Count 417 X10^3/uL (150-400); Red Cell Distribution Width 15.4 % (11.6-14.8); White Blood Cell Count 7.2 X10^3/uL (4.5-11.0)
[2022-10-28 10:50] LABS: Alanine Aminotransferase 38 IU/L (<35); Albumin 3.6 g/dL (3.5-5.0); Albumin Globulin Ratio 1.2 (1.0-2.8); Alkaline Phosphatase 108 U/L (38-126); Aspartate Aminotransferase 35 IU/L (14-36); BUN Creatinine Ratio 27.1 (6-22); Bilirubin Total 0.6 mg/dL (0.2-1.3); Blood Urea Nitrogen 23 mg/dL (7-17); C-Reactive Protein Quant 4.1 mg/dL (<1.0); Calcium 9.6 mg/dL (8.4-10.2); Carbon Dioxide 22 mmol/L (22-32); Chloride 103 mmol/L (98-107); Estimated Glomerular Filt Rate > 60 mL/min (>60); Globulin 3.1 g/dL (1.7-4.1); Glucose 111 mg/dL (80-110); HEMOLYSIS 47 (0-50); Potassium 4.3 mmol/L (3.4-5.1); Sodium 139 mmol/L (137-145); Total Protein 6.7 g/dL (6.3-8.2)
== END ==
PROVIDERS: PCP Family Medicine; Visit Provider Family Medicine
DX: I26.99 Other pulmonary embolism without acute cor pulmonale (principal); C34.90 Malignant neoplasm of unspecified part of unspecified bronchus or lung; R06.02 Shortness of breath; R07.89 Other chest pain
CPT/HCPCS: 80053; 85025; 86140

== ENCOUNTER → 2022-10-29 12:17 | Outpatient (CLI) | payer MEDICARE, OTHER, SELFPAY ==
[2020-09-10 23:54] VITALS: BMI 25.5
--- NOTE | 2022-10-29 12:21 | DI.US.S_ITS ---
PROCEDURE: US PERIPH VENOUS LOW EXTREM BI INDICATIONS: HISTORY OF PULMONARY EMBOLISM TECHNIQUE: Real-time imaging, as well as color and pulse Doppler interrogation, were performed of the deep veins of both legs from the inguinal ligament to the popliteal fossa. COMPARISON: [facility], CT, CT CHEST WITH CONTRAST, 08/22/2022, 14:11. FINDINGS: Right: The common femoral, femoral and popliteal veins are normally compressible, and free of intraluminal thrombus. Color and pulse Doppler demonstrate normal phasic intravascular flow. There is normal augmentation response to distal compression maneuver. Left: The common femoral, femoral and popliteal veins are normally compressible, and free of intraluminal thrombus. Color and pulse Doppler demonstrate normal phasic intravascular flow. There is normal augmentation response to distal compression maneuver. IMPRESSION: Negative for deep venous thrombosis. Dictated by: Niels Haines M.D. on 10/29/2022 at 12:43 Approved by: Niels Haines M.D. on 10/29/2022 at 12:43
== END ==
PROVIDERS: PCP Family Medicine; Referring Provider Family Medicine; Visit Provider Family Medicine
DX: I26.99 Other pulmonary embolism without acute cor pulmonale (principal)
CPT/HCPCS: 93970

== ENCOUNTER 2022-12-25 15:00 | Day surgery (SDC) | payer MEDICARE, OTHER, SELFPAY ==
[2020-09-10 23:54] VITALS: BMI 25.5
[2022-12-25 15:16] VITALS: BP 138/77; PULSE 91; RESP 16; TEMP 36.4; O2SAT 96; BMI 24.4
[2022-12-25] MEDS: LACTATED RINGERS 1,000 ML 42 ML IV (15:33)
--- NOTE | 2022-12-25 16:01 | P.HP_ITS ---
History of Present Illness History of Present Illness Date Patient Seen: 12/25/22 Time Patient Seen: 16:01 Chief complaint: [facility] Narrative: Seen by Billy 12/10/22: Sury is a 77-year-old woman with 1-2 months of dysphagia that came on gradually.? It mostly is with pills but also cold liquids cause dysphagia and some pain.? She finds that warm water helps her to swallow pills.? She does not seem to have any problems with solid foods.? She does not bring anything back up.? She completed radiation for lung cancer last January and she has had radiation for breast cancer in the past.She reports today that she has not had a significant change in her symptoms. That the pills are still sticking right in her chest and that if she drinks a lot of water that will help wash him down. Have trouble drinking water or eating regular food and denies any symptoms of heartburn or acid reflux. She has had both left breast cancer and left lung cancer requiring radiation each time to the left side of her chest. 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, cervical Hyperlipidemia Hypertension Shoulder impingement syndrome Surgical History Previous section Family History Unknown Cancer Social History household members: family lives independently: Yes occupational status: previously employed Smoking Status: Former smoker alcohol intake: current substance use type: does not use Meds Home Medications and Allergies Home Medications Medication Instructions Recorded Confirmed Type atorvastatin 40 mg tablet 40 mg PO DAILY 02/08/20 12/25/22 History calcium [calcium citrate] PO BID 02/08/20 12/10/22 History cholecalciferol (vitamin D3) 50 50 mcg PO DAILY 02/08/20 12/25/22 History mcg (2,000 unit) capsule escitalopram oxalate 20 mg tablet 20 mg PO BEDTIME 02/08/20 12/25/22 History apixaban [Eliquis] PO 03/22/23 03/22/23 History Allergies Allergy/AdvReac Type Severity Reaction Status Date / Time No Known Drug Allergies Allergy Verified 12/25/22 15:12 Exam Vital Signs (past 8 hours): - 12/25/22 15:16 Temperature 97.6 F Pulse Rate 91 H Respiratory Rate 16 Blood Pressure 138/77 Pulse Oximetry 96 Oxygen Delivery Method Room Air Oxygen Delivery Method Room Air Const General: cooperative, healthy appearing and comfortable Eyes General: appearance normal, both eyes and all related structures Resp Effort & Inspection: normal respiratory effort and able to speak in complete sentences GI Palpation: soft and No tender Assessment & Plan Assessment and plan (1) Dysphagia: Qualifiers: Dysphagia type: unspecified Qualified Code(s): R13.10 - Dysphagia, unspecified Status: Acute Assessment & Plan narrative: I discussed the risks benefits and alternatives of an EGD with Ms. Oropeza[employer] Inc luding but not limited to injury to the esophagus and lack of diagnostic information. She understands that in a rare case surgery could be needed to repair injury after an EGD but understands the benefits and would like to proceed with the procedure.
--- NOTE | 2022-12-25 17:16 | SUR.PREOP ---
Patient's procedure canceled since patient took her Elaquis at 0900 this morning. Patient was told in person at Dr Cervantes's office that she could continue her Elaquis, yet Dr Arellano was provider scheduled to do procedure. Dr Arellano canceling patient due to Elaquis. Patient discharged home in stable condition with family and will reschedule for another time .
== END 2022-12-25 15:05 | disposition home or self-care (01) ==
LOC: ENDO 15:01
PROVIDERS: PCP Family Medicine; Referring Provider Surgery; Visit Provider Surgery
DX: R13.10 Dysphagia, unspecified (principal); Z53.09 Procedure and treatment not carried out because of other contraindication
CPT/HCPCS: J2704

== ENCOUNTER → 2023-01-09 09:41 | Day surgery (SDC) | payer MEDICARE, OTHER, SELFPAY ==
[2020-09-10 23:54] VITALS: BMI 25.5
[2023-01-09] VITALS (7 sets, daily range): BP systolic 85–112; BP diastolic 48–68; PULSE 75–91; RESP 16–20; TEMP 36.1–36.8; O2SAT 95–97; BMI 24.2
--- NOTE | 2023-01-09 | PATH_ITS ---
[facility] Accession Number: [id number] No. of containers..04 Tissue . 01 Material submitted: . PART A: pyloric antrum - PYLORIC BIOPSY PART B: duodenum - DUODENUM BIOPSY PART C: esophagus, E-G Junction - GE JUNCTION BIOPSY PART D: esophagus - ESOPHAGEAL BIOPSY . 01 Diagnosis: A. Stomach, Pyloric Biopsy: Antral mucosa with reactive gastropathy and mild chronic gastritis. Negative for Helicobacter by immunohistochemistry. Negative for intestinal metaplasia. Negative for dysplasia and malignancy. . B. Duodenum, Biopsy: Duodenal mucosa with no diagnostic abnormality. Negative for active inflammation, features of sprue, dysplasia, or malignancy. . C. Gastroesophageal Junction, Biopsy: Squamocolumnar junctional mucosa with specialized intestinal metaplasia, consistent with Anders's esophagus. Glycogenic acanthosis. Negative for dysplasia and malignancy. . D. Esophagus, Biopsy: Squamous epithelium with no diagnostic abnormality. Intraepithelial eosinophils are not increased. Negative for dysplasia and malignancy. [facility] 01/14/2023 1625 Local . 01 Electronically signed: . Anila Jolley MD, Pathologist NPI- [id number] . 01 Gross description: . Part A: PYLORIC BIOPSY: Received in formalin are 2 fragment(s) of valencia, soft tissue measuring 0.1 x 0.1 x 0.1 cm to 0.2 x 0.2 x 0.2 cm submitted entirely in 1 cassette(s) Part B: DUODENUM BIOPSY: Received in formalin are 2 fragment(s) of valencia, soft tissue measuring 0.1 x 0.1 x 0.1 cm to 0.3 x 0.2 x 0.2 cm submitted entirely in 1 cassette(s) Part C: GE JUNCTION BIOPSY: Received in formalin are 2 fragment(s) of valencia, soft tissue measuring 0.1 x 0.1 x 0.1 cm to 0.3 x 0.2 x 0.2 cm submitted entirely in 1 cassette(s) Part D: ESOPHAGEAL BIOPSY: Received in formalin is 1 fragment(s) of valencia, soft tissue measuring 0.2 x 0.2 x 0.2 cm submitted entirely in 1 cassette(s) /[facility] 01/12/2023 1909 Local . 01 Microscopic: . A. An immunohistochemical stain was performed to evaluate for Helicobacter organisms and is negative. The control stain showed appropriate reactivity. . C. An AB/PAS stain is performed to evaluate for intestinal metaplasia and is positive. The control stain showed appropriate reactivity. . * This test was developed and its performance characteristics determined by [facility]. It has not been cleared or approved by the U.S. Food and Drug Administration. The FDA has determined that such clearance or approval is not necessary. This test is used for clinical purposes. It should not be regarded as investigational or for research. . 01 Pathologist provided ICD-10: K22.70, R13.10 . 01 CPT . 589451, 002417, 204590, 058191, Q86330, 634820 Specimen Comment: A courtesy copy of this report has been sent to [facility] Pathology Performed at: 01 [facility] [address] [place] [address], [place], [place] [id number] MD Barry Rivera MD Phone: [phone]
[2023-01-09] MEDS: LACTATED RINGERS 1,000 ML 84 ML IV (10:15)
--- NOTE | 2023-01-09 10:46 | PM.PREOP ---
Pre-operative Note Interval Note History & Physical reviewed/Exam performed by Physician: Yes Changes to H&P: No H&P completed within 30 days and has changed as indicated here:: She states she has had no changes in her symptoms. No further questions. I reiterated risks benefits and alternatives of EGD and possible dilation including but not limited to perforation or damage to the esophagus. She understands these risks and would like to proceed.
--- NOTE | 2023-01-09 13:50 | PM.OP.EGD ---
Operative Date/Time/Diagnoses Date of procedure: 01/09/23 Pre-op diagnosis: Dysphagia Post-op diagnosis: same Procedure & Clinicians Study performed: EGD and biopsy Same procedure as scheduled: Yes Indications: Please see H and P. Ms Oropeza is complaining of sticking in her throat when she swallows, i.e. dysphagia. Surgeon: Carito Arellano Procedure Notes Procedure in detail: Patient was taken to the endoscopy suite and placed supine on the gurney. The anesthesiologist placed a bite block and induced conscious sedation as well as monitored throughout the case. The EGD scope was placed into the mouth over the tongue and into the esophagus with relative ease. The scope was then advanced down the esophagus and into the stomach. Photograph was obtained of the stomach as well as pylorus. There was some mild gastritis seen around the area of the pylorus and 1 area in particular where there was some reddened mucosa. This was biopsied and sent for pathology as well as H pylori. Next, the duodenum was intubated and a photograph was obtained. Biopsies were taken of the duodenum. There were some gross signs of inflammation there, specifically some irregularities in the mucosa. The scope was then retroflexed and a photograph of the GE junction was taken. No hiatal hernia was seen. The scope was then further withdrawn into the GE junction and a photograph was taken from above. The GE junction did not appear to be strictured, however biopsies were taken at the GE junction. It did appear that there may be some mild changes associated with reflux in this area. The scope was then withdrawn into the rest of the esophagus and some random esophageal biopsies were taken. The scope was fully withdrawn, the entire procedure took 11 minutes, and the patient tolerated the procedure well and went in good condition to the postoperative care unit. Findings: gastritis Specimen(s): other (1. Pyloric biopsy 2. Duodenum biopsy 3. GE junction biopsy 4. Esophageal biopsies) Complications: none Post-procedure Recommendations: Prescription for (Currently taking Protonix will add H2 pj in addition for a trial.), Will call with biopsy results and Other recommendation(s) Plan for aftercare: Would also consider a swallow evaluation to evaluate esophageal function. Patient and her daughter Sherine (spoke on phone after procedure) were advised to call the office of the [facility] with any questions or concerns and to follow up as needed if the primary care physician requests it or symptoms do not improve and/or you have questions.
== END | disposition home or self-care (01) ==
PROVIDERS: PCP Family Medicine; Referring Provider Surgery; Visit Provider Surgery
PROC: 0DJ08ZZ Inspection of Upper Intestinal Tract, Via Natural or Artificial Opening Endoscopic (ICD-10-PCS; CPT 43235; principal; 2023-01-09 10:45)
DX: R47.02 Dysphasia (principal); K29.50 Unspecified chronic gastritis without bleeding; K22.70 Barrett's esophagus without dysplasia
CPT/HCPCS: 43239; J2704

== ENCOUNTER → 2023-02-11 09:20 | Outpatient (CLI) | payer MEDICARE, OTHER, SELFPAY ==
[2020-09-10 23:54] VITALS: BMI 25.5
--- NOTE | 2023-02-11 10:10 | DI.RAD.S_ITS ---
PROCEDURE: FL BARIUM SWALLOW INDICATIONS: DYSPHAGIA COMPARISON: [facility], CT, CT ANGIO CHEST PE, 01/12/2023, 8:18. FINDINGS: Function: There is severe esophageal dysmotility with disorganized esophageal peristalsis. No elicited gastroesophageal reflux. There is normal transit of a calibrated barium tablet through the esophagus into the stomach. Morphology: Air-contrast images demonstrate normal mucosal morphology. Single contrast views show no esophageal strictures, extrinsic mass effects, or diverticula. Limited images of the stomach demonstrate normal appearance. IMPRESSION: 1. Severe esophageal dysmotility. Dictated by: Rosalva Walker M.D. on 02/11/2023 at 10:40 Approved by: Rosalva Walker M.D. on 02/11/2023 at 10:41
== END ==
PROVIDERS: PCP Family Medicine; Referring Provider Surgery; Visit Provider Surgery
DX: K22.4 Dyskinesia of esophagus (principal)
CPT/HCPCS: 74220

== ENCOUNTER → 2023-03-18 11:07 | Outpatient (CLI) | payer MEDICARE, OTHER, SELFPAY ==
[2020-09-10 23:54] VITALS: BMI 25.5
--- NOTE | 2023-03-18 | DI.RAD.S_ITS ---
PROCEDURE: XR CHEST 2V INDICATIONS: Malignant neoplasm of central portion of left female breast TECHNIQUE: 2 views of the chest were acquired. COMPARISON: [facility], CT, CT CHEST WITH CONTRAST, 10/20/2022, 1:38. [facility], CT, CT ANGIO CHEST PE, 01/12/2023, 8:18. [place], [place], PET NECK TO MID THIGH, 09/24/2022, 8:50. [place], [place], PET NECK TO MID THIGH, 06/12/2022, 9:16. [facility], , XR CHEST 2V, 02/12/2022, 17:45. FINDINGS: Surgical changes and devices: Left mesenteric. Lungs and pleura: Elevation of the left hemidiaphragm. The left lung is completely opacified. No pneumothorax. Mediastinum: Mediastinal contours are normal. Heart size is normal. Bones and chest wall: No suspicious bony abnormalities. Soft tissues appear unremarkable. IMPRESSION: 1. Complete opacification of the left hemithorax, likely combination of left pleural effusion and mass. Cannot rule out superimposed pneumonia. 2. Right lung is clear. Dictated by: Rosalva Walker M.D. on 03/18/2023 at 15:38 Approved by: Rosalva Walker M.D. on 03/18/2023 at 15:41
== END ==
PROVIDERS: PCP Family Medicine; Referring Provider Family Medicine; Visit Provider Family Medicine
DX: C50.112 Malignant neoplasm of central portion of left female breast (principal); J98.4 Other disorders of lung; Z17.0 Estrogen receptor positive status [ER+]
CPT/HCPCS: 71046

== ENCOUNTER → 2023-03-19 13:53 | Outpatient (CLI) | payer MEDICARE, OTHER, SELFPAY ==
[2020-09-10 23:54] VITALS: BMI 25.5
--- NOTE | 2023-03-19 13:54 | DI.ECHO.S_ITS ---
[facility] +---------+ : : [address] : [place] [address] : : : : [id number] : : : : Phone: [phone]+ Echocardiogram Report + + :Name: JING FERNANDEZ Study Date: 03/19/2023 Height: 60 in : :[facility] ReadingLocation: Weight: 128 lb : : Gender: Female BSA: 1.5 m2 : :: 1945 Age: 77 yrs BP: 133/73 mmHg: :Reason For Study: PERICARDIAL EFFUSION : :Ordering Physician: ESTELLA, : :MAY Quick Performed By: Jessie Hill : :Referring: MAY GARCIA : + + Interpretation Summary There is mild concentric left ventricular hypertrophy. The ejection fraction is estimated to be 65-70%. Diastolic function could not be accurately assessed due to unobtainable data. The right ventricle is normal size. The right ventricular systolic function is normal. There is mild tricuspid regurgitation. The right ventricular systolic pressure is estimated to be at least 26 mmHg based on an estimated right atrial pressure of 8 mm Hg. There is a large pericardial effusion that is circumferential. Compared to the prior study dated 08/28/2022, the pericardial effusion has increased in size and the IVC no longer collapse with respiration. Procedure: A two-dimensional transthoracic echocardiogram with color flow and Doppler was performed. The study quality was technically adequate. Comparison is made with the echocardiogram of 08/28/2022. The patient was in sinus rhythm with heart rates between 79-82 bpm during the exam. Left Ventricle: The left ventricle is normal in size. There is mild concentric left ventricular hypertrophy. The ejection fraction is estimated to be 65-70%. Diastolic function could not be accurately assessed due to unobtainable data. Right Ventricle: The right ventricle is normal size. The right ventricular systolic function is normal. Atria: The left atrial size is normal. Right atrial size is normal. There is no Doppler evidence for an interatrial shunt. Mitral Valve: There is moderate mitral annular calcification. The mitral valve leaflets appear mildly thickened, but open well. There is trace mitral regurgitation. Aortic Valve: The aortic valve is not well visualized. There is no aortic valve stenosis. No aortic regurgitation is present. Tricuspid Valve: The tricuspid valve leaflets are thin and pliable. There is mild tricuspid regurgitation. The right ventricular systolic pressure is estimated to be at least 26 mmHg based on an estimated right atrial pressure of 8 mm Hg. Pulmonic Valve: The pulmonic valve is not well seen, but is grossly normal. There is no pulmonic valvular regurgitation. Great Vessels: The aortic root is normal size. The ascending aorta could not be visualized. The IVC is of normal diameter and collapses less than 50% with a sniff. This suggests a right atrial pressure of 8 mm Hg. Pericardium/ Pleura There is a large pericardial effusion that is circumferential. Pericardial effusion measurements range from 0.5cm-3.0cm. There are no echocardiographic indications of cardiac tamponade. MMode/2D Measurements & Calculations LVIDd: 4.4 cm LVOT diam: 2.0 cm LVIDs: 2.4 cm Ao Arch Diam (Prox Trans): 2.4 cm FS: 45.4 % IVSd: 0.98 cm LVPWd: 0.97 cm LV cosby. diameter/BSA (cm/m^2): 2.9 LV sys. diameter/BSA (cm/m^2): 1.6 LA A2 area: 13.9 cm2 RA long axis: 4.0 cm LA A4 area: 11.6 cm2 RA area: 11.9 cm2 LA length (vol): 4.2 cm RA vol: 29.7 ml LA vol: 32.4 ml RA : 19.2 ml/m2 LA vol index: 21.0 ml/m2 IVC diam: 1.9 cm RVD1 (basal): 3.8 cm RVD2 (mid): 3.0 cm TAPSE: 1.8 cm Doppler Measurements & Calculations Ao V2 max: 130.9 cm/sec LVOT Max Fernie: 108.8 cm/sec Ao V2 mean: 101.6 cm/sec LV V1 max P.7 mmHg Ao max P.9 mmHg LV V1 VTI: 21.7 cm Ao mean P.3 mmHg WANDA(I,D): 3.0 cm2 Ao V2 VTI: 22.6 cm WANDA(V,D): 2.6 cm2 sev ratio: 0.96 WANDA indexed to BSA (cm^2/m^2): 2.0 MV E max fernie: 67.9 cm/sec TR max fernie: 214.3 cm/sec MV A max fernie: 101.2 cm/sec TR max P.4 mmHg MV E/A: 0.67 PA V2 max: 77.6 cm/sec Med Peak E' Fernie: 7.0 cm/sec PA V2 mean: 58.5 cm/sec E/E' med: 9.7 PA mean P.5 mmHg Lat Peak E' Fernie: 5.3 cm/sec E/E' lat: 12.8 E/e' average: 11.3 MV dec time: 0.22 sec SV(LVOT): 68.2 ml Reading Physician:05:21 PM
== END ==
PROVIDERS: PCP Family Medicine; Referring Provider Internal Medicine Cardiovascular Disease; Visit Provider Internal Medicine Cardiovascular Disease
DX: I31.39 Other pericardial effusion (noninflammatory) (principal); I08.1 Rheumatic disorders of both mitral and tricuspid valves
CPT/HCPCS: 93010; 93306

== ENCOUNTER 2023-03-19 15:22 | Emergency (ER) | payer MEDICARE, OTHER, SELFPAY ==
[2020-09-10 23:54] VITALS: BMI 25.5
[2023-03-19] VITALS (9 sets, daily range): BP systolic 145–165; BP diastolic 65–84; PULSE 78–83; RESP 18–29; TEMP 36.9; O2SAT 95–96; BMI 25.0
--- NOTE | 2023-03-19 15:35 | DI.RAD.S_ITS ---
PROCEDURE: XR CHEST 1V INDICATIONS: chest pain TECHNIQUE: One view of the chest was acquired. COMPARISON: [facility], CR, XR CHEST 2V, 03/18/2023, 11:26. FINDINGS: Surgical changes and devices: Postsurgical changes are again seen in left hilar region and left axilla. Lungs and pleura: There is near complete opacification of left hemithorax not significantly changed from previous study. Right lung remains clear. No gross pneumothorax. Mediastinum: Mediastinal contours appear normal. Heart size is enlarged. Bones and chest wall: No suspicious bony lesions. Overlying soft tissues appear unremarkable. IMPRESSION: Postsurgical changes in left hemithorax with near complete opacification of left hemithorax not significantly changed from previous study. Finding is suggestive of combination of left pleural effusion and left lung mass and/atelectasis. No pneumothorax. Right lung remains clear. Dictated by: Aramis Watters M.D. on 03/19/2023 at 16:19 Approved by: Aramis Watters M.D. on 03/19/2023 at 16:21
[2023-03-19 15:58] LABS: INR 1.3 (0.9-1.3); Prothrombin Time 14.7 SECONDS (10.1-12.7)
[2023-03-19 16:01] LABS: Add Manual Diff / Slide Review NO; Basophils Absolute Auto 100 /uL (0-100); Basophils Percent Auto 1.3 % (0-2); Eosinophils Absolute Auto 100 /uL (0-450); Eosinophils Percent Auto 2.7 % (2-4); Hematocrit 33.4 % (36-46); Hemoglobin 10.7 g/dL (12.0-16.0); Lymphocytes Absolute Auto 700 /uL (1100-4500); Lymphocytes Percent Auto 17.6 % (25-40); Mean Corpuscular HGB Conc 32.1 % (30-36); Mean Corpuscular Volume 84.1 fL (80-100); Monocytes Absolute Auto 500 /uL (0-900); Monocytes Percent Auto 11.5 % (3-14); Neutrophils Absolute Auto 2700 /uL (1500-7000); Neutrophils Percent Auto 66.9 % (50-75); PTT Partial Thromboplastin Tim 32 SECONDS (26-36); Platelet Count 268 X10^3/uL (150-400); Red Blood Cell Count 3.97 X10^6/uL (4.0-5.2); Red Cell Distribution Width 18.5 % (11.6-14.8); White Blood Cell Count 4.1 X10^3/uL (4.5-11.0)
[2023-03-19 16:02] LABS: Alanine Aminotransferase 45 IU/L (<35); Albumin 4.1 g/dL (3.5-5.0); Albumin Globulin Ratio 1.2 (1.0-2.8); Alkaline Phosphatase 241 U/L (38-126); Aspartate Aminotransferase 38 IU/L (14-36); BUN Creatinine Ratio 34.2 (6-22); Bilirubin Total 0.5 mg/dL (0.2-1.3); Blood Urea Nitrogen 26 mg/dL (7-17); Carbon Dioxide 25 mmol/L (22-32); Chloride 102 mmol/L (98-107); Creatine Kinase < 20 U/L (30-135); Estimated Glomerular Filt Rate > 60 mL/min (>60); Globulin 3.3 g/dL (1.7-4.1); Glucose 103 mg/dL (80-110); HEMOLYSIS < 15 (0-50); Lipase 111 U/L (23-300); Sodium 137 mmol/L (137-145); Total Protein 7.4 g/dL (6.3-8.2)
[2023-03-19 16:11] LABS: NT-proBNP (BNP-Adult 18+) 412 pg/mL (<450)
[2023-03-19 16:14] LABS: Troponin I < 0.012 ng/mL (0.01-0.034)
--- NOTE | 2023-03-19 17:15 | ED_ITS ---
HPI - SOB/Dyspnea General Chief Complaint: Shortness of Breath/Dyspnea Stated Complaint: SENT BY CARDIOLOGY Time Seen by Provider: 03/19/23 17:12 History of Present Illness HPI Narrative: 77F former smoker with history of breast cancer and lung cancer, prior left chest radiation and a known pericardial effusion presents to the emergency department at the request of Cardiology after receiving an outpatient echocardiogram today. Her customs and border protection officer had ordered a routine echo to trend the size of this effusion and noted it to be increased in size, which prompted her to reach out indirect patient to the emergency department for evaluation. She is had persistent left-sided chest discomfort for quite some time but nothing new. She becomes short of breath with exertion and states that she does not think she is had any noticeable or significant change in her shortness of breath. She states that when she walks up 2 flights of stairs she becomes short of breath and needs to take a break. She denies any fever or chills. She denies nausea, vomiting or diarrhea. She denies any abdominal pain. She denies any weight gain or swelling of her lower extremities. Related Data Home Medications Medication Instructions Recorded Confirmed atorvastatin 40 mg tablet 40 mg PO DAILY 02/08/20 01/09/23 calcium [calcium citrate] PO BID 02/08/20 12/10/22 cholecalciferol (vitamin D3) 50 50 mcg PO DAILY 02/08/20 12/25/22 mcg (2,000 unit) capsule escitalopram oxalate 20 mg tablet 20 mg PO BEDTIME 02/08/20 12/25/22 apixaban [Eliquis] PO 12/10/22 12/10/22 gabapentin 100 mg capsule 100 mg PO 01/09/23 omeprazole 40 mg capsule,delayed 40 mg PO DAILY 01/09/23 01/09/23 release pentoxifylline 400 mg 400 mg PO BID 01/09/23 01/09/23 tablet,extended release Previous Rx's Medication Instructions Recorded famotidine 20 mg tablet 20 mg PO BEDTIME #14 tabs 01/09/23 Allergies Allergy/AdvReac Type Severity Reaction Status Date / Time No Known Drug Allergies Allergy Verified 03/19/23 15:35 Review of Systems Review of Systems Narrative: GENERAL: Denies chills, fatigue, malaise, fever, sweats. HEENT: Denies sinus pain, ear pain, sore throat, difficulty swallowing, dizziness. RESPIRATORY: See HPI CARDIOVASCULAR: See HPI GASTROINTESTINAL: Denies nausea, vomiting, abdominal pain, diarrhea, constipation, melena. : Denies dysuria, frequency, incontinence, hematuria, urinary retention. MUSCULOSKELETAL: denies weakness, joint pain, or bony pain SKIN: Denies rash, skin lesions, or other NEUROLOGIC: Denies weakness, headache, numbness, change in speech, confusion, seizures, incoordination. PSYCHIATRIC: No concerning psychosocial issues. 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 Well-developed patient, in mild distress. HEAD: Atraumatic. Normocephalic. EYES: Pupils equal round and reactive. Extraocular motions intact. No scleral icterus. No injection or drainage. ENT: Nose without bleeding, purulent drainage. Throat without erythema, tonsillar hypertrophy or exudate. Airway patent. NECK: Trachea midline. Non tender CARDIOVASCULAR: Regular rate and rhythm without murmurs, gallops, or rubs. RESPIRATORY: No obvious respiratory distress, no evidence of labored breathing, no use of accessory muscles, no hypoxemia, resting comfortably and fully conversational. Near-complete absent breath sounds on the left, chronic for her, clear on the right no rales or rhonchi GASTROINTESTINAL: Abdomen soft, non-tender, nondistended. EXTREMITIES: No edema or joint tenderness. BACK: Nontender without deformity or crepitance. No flank tenderness. NEURO: AOx3. SKIN: No rash or erythema of visible areas Initial Vital Signs Initial Vital Signs: Vital Signs Temperature 98.4 F 03/19/23 15:29 Pulse Rate 82 03/19/23 15:29 Respiratory Rate 18 03/19/23 15:29 Blood Pressure 156/65 H 03/19/23 15:29 Pulse Oximetry 96 03/19/23 15:29 Oxygen Delivery Method Room Air 03/19/23 15:29 Course Orders Ordered: Discontinued Medications Aspirin (Aspirin 81 Mg Chew Tab) 324 mg PO NOW ONE Stop: 03/19/23 15:36 Last Admin: 03/19/23 16:44 Dose: Not Given Documented By: KB Consultations Consultation #1: discussed with Dr. Garcia (Cardiology) who read the outpatient echo. We have discussed patient's clinical course, prior visits and today's echocardiogram. Though there is interval change the patient is not in any acute distress, non hypoxemic and there is no indication for emergent intervention. She has an appointment scheduled for next week already and will likely discuss scheduling an outpatient pericardiocentesis Vital Signs Vital signs: Vital Signs - 8 hr 03/19/23 15:29 03/19/23 15:57 03/19/23 15:59 Temperature 98.4 F Pulse Rate 82 80 79 Respiratory Rate 18 29 H 23 Blood Pressure 156/65 H 145/67 H Pulse Oximetry 96 95 96 Oxygen Delivery Method Room Air 03/19/23 15:59 03/19/23 16:00 03/19/23 16:00 Temperature Pulse Rate 79 Respiratory Rate 19 Blood Pressure 145/67 H 160/72 H Pulse Oximetry 96 Oxygen Delivery Method 03/19/23 16:30 03/19/23 16:30 Temperature Pulse Rate 78 Respiratory Rate 22 Blood Pressure 151/72 H Pulse Oximetry 96 Oxygen Delivery Method MDM - SOB/Dyspnea Lab Data 03/19/23 15:45 03/19/23 15:45 Labs: Lab Results 03/19/23 03/19/23 03/19/23 Range/Units 15:45 15:45 15:45 WBC 4.1 L (4.5-11.0) X10^3/uL RBC 3.97 L (4.0-5.2) X10^6/uL Hgb 10.7 L (12.0-16.0) g/dL Hct 33.4 L (36-46) % MCV 84.1 (80-100) fL MCH 27.0 (26-34) PG MCHC 32.1 (30-36) % RDW 18.5 H (11.6-14.8) % Plt Count 268 (150-400) X10^3/uL Neut % (Auto) 66.9 (50-75) % Lymph % (Auto) 17.6 L (25-40) % [place] % (Auto) 11.5 (3-14) % Eos % (Auto) 2.7 (2-4) % Baso % (Auto) 1.3 (0-2) % Neut # (Auto) 2700 (1264-5092) /uL Lymph # (Auto) 700 L (2233-5955) /uL [place] # (Auto) 500 (0-900) /uL Eos # (Auto) 100 (0-450) /uL Baso # (Auto) 100 (0-100) /uL PT 14.7 H (10.1-12.7) SECONDS INR 1.3 (0.9-1.3) APTT 32 (26-36) SECONDS Sodium 137 (137-145) mmol/L Potassium 4.0 (3.4-5.1) mmol/L Chloride 102 (98-107) mmol/L Carbon Dioxide 25 (22-32) mmol/L BUN 26 H (7-17) mg/dL Creatinine 0.76 (0.52-1.04) mg/dL Estimated GFR > 60 (>60) mL/min BUN/Creatinine Ratio 34.2 H (6-22) Glucose 103 (80-110) mg/dL Calcium 10.0 (8.4-10.2) mg/dL Magnesium 2.0 (1.6-2.3) mg/dL Total Bilirubin 0.5 (0.2-1.3) mg/dL AST 38 H (14-36) IU/L ALT 45 H (<35) IU/L Alkaline Phosphatase 241 H (38-126) U/L Total Creatine Kinase < 20 L (30-135) U/L Troponin I < 0.012 (0.01-0.034) ng/mL NT-Pro-B Natriuret Pep (<450) pg/mL Total Protein 7.4 (6.3-8.2) g/dL Albumin 4.1 (3.5-5.0) g/dL Globulin 3.3 (1.7-4.1) g/dL Albumin/Globulin Ratio 1.2 (1.0-2.8) Lipase 111 (23-300) U/L 03/19/23 Range/Units 15:45 WBC (4.5-11.0) X10^3/uL RBC (4.0-5.2) X10^6/uL Hgb (12.0-16.0) g/dL Hct (36-46) % MCV (80-100) fL MCH (26-34) PG MCHC (30-36) % RDW (11.6-14.8) % Plt Count (150-400) X10^3/uL Neut % (Auto) (50-75) % Lymph % (Auto) (25-40) % [place] % (Auto) (3-14) % Eos % (Auto) (2-4) % Baso % (Auto) (0-2) % Neut # (Auto) (1560-9663) /uL Lymph # (Auto) (7260-8358) /uL [place] # (Auto) (0-900) /uL Eos # (Auto) (0-450) /uL Baso # (Auto) (0-100) /uL PT (10.1-12.7) SECONDS INR (0.9-1.3) APTT (26-36) SECONDS Sodium (137-145) mmol/L Potassium (3.4-5.1) mmol/L Chloride (98-107) mmol/L Carbon Dioxide (22-32) mmol/L BUN (7-17) mg/dL Creatinine (0.52-1.04) mg/dL Estimated GFR (>60) mL/min BUN/Creatinine Ratio (6-22) Glucose (80-110) mg/dL Calcium (8.4-10.2) mg/dL Magnesium (1.6-2.3) mg/dL Total Bilirubin (0.2-1.3) mg/dL AST (14-36) IU/L ALT (<35) IU/L Alkaline Phosphatase (38-126) U/L Total Creatine Kinase (30-135) U/L Troponin I (0.01-0.034) ng/mL NT-Pro-B Natriuret Pep 412 (<450) pg/mL Total Protein (6.3-8.2) g/dL Albumin (3.5-5.0) g/dL Globulin (1.7-4.1) g/dL Albumin/Globulin Ratio (1.0-2.8) Lipase (23-300) U/L ECG Data Interpretation: [1615] EKG is normal sinus rhythm rate [79 ] and free of any signs of ischemia or ectopy. No ST segmental elevation or depression. No T wave inversions MDM Narrative Medical decision making narrative: [77] year old patient presents with interval change of known pericardial e ffusion Multiple etiologies for patient's symptoms considered including, but not limited to: [Pericardial effusion with potential tamponade] Prior Charts reviewed in our EMR Primary Historian: patient Labs reviewed and interpreted by myself: No significant abnormalities that would require immediate intervention Imaging reviewed: Echocardiogram with interval change in pericardial effusion, no tamponade. Chest x-ray with near-complete opacification of left hemithorax, not significantly changed from prior Consultations: Discussed with cardiology as noted above Patient's history and physical exam are reassuring and she is in no obvious or acute distress. Vital signs are reassuring, labs are unremarkable, no labored breathing, [place] conversational, no hypoxemia. As noted above patient has plan for cardiology appointment next week, they are working on scheduling an outpatient tap. Findings and discharge diagnosis discussed with patient/family followed by verbalization of understanding Return precautions discussed with patient/family whom verbalize understanding of diagnosis and plan Discharge Plan Departure Patient Disposition: Home Clinical Impression: Pericardial effusion Activity Restrictions/Additional Instructions: *You have been diagnosed with [pericardial effusion] *What to do: *Please continue to take your regular medications as directed. *Please follow up with your customs and border protection officer as planned next week. Per our discussion they will likely work on scheduling an outpatient procedure to drain and evaluate the fluid surrounding your heart. *Return to Emergency Department if you should have any new, worsening or concerning symptoms, such as [fever greater than 101 F, shaking chills, worsening pain, persistent vomiting, increased shortness of breath or other bothersome symptoms] Prescriptions: No Action apixaban [Eliquis] PO famotidine 20 mg tablet 20 mg PO BEDTIME Qty: 14 0RF Rx Instructions: If this seems to help follow-up with your primary care physician for a refill or call the office of [facility] and let us know if you do need a refill or try a different medication and we can call it in also. omeprazole 40 mg Capsule,Delayed Release(Dr/Ec) 40 mg PO DAILY pentoxifylline 400 mg tablet extended release 400 mg PO BID Patient Comments: TAKE ONE TABLET BY MOUTH ONE TIME DAILY gabapentin 100 mg capsule 100 mg PO Patient Comments: Take 1 capsule by mouth three times a day increase by 100 mg a day every five days until taking 3 capsules (300mg) three times a day escitalopram oxalate 20 mg tablet 20 mg PO BEDTIME calcium PO BID cholecalciferol (vitamin D3) 50 mcg (2,000 unit) capsule 50 mcg PO DAILY atorvastatin 40 mg tablet 40 mg PO DAILY Referrals: May Garcia DO [Physician] - Fred Boateng MD [Primary Care Provider] - Stand Alone Forms: Patient Portal/API
== END 2023-03-19 17:55 | disposition home or self-care (01) ==
PROVIDERS: Emergency Medicine; Emergency Provider Emergency Medicine; PCP Family Medicine
DX: I31.39 Other pericardial effusion (noninflammatory) (principal); I08.1 Rheumatic disorders of both mitral and tricuspid valves
CPT/HCPCS: 36415; 71045; 80053; 82550; 83690; 83735; 83880; 84484; 85025; 85610; 85730; 93005; 93010; 93306; 99283; 99284

== ENCOUNTER 2023-03-24 18:51 | Emergency (ER) | payer MEDICARE, OTHER, SELFPAY ==
[2020-09-10 23:54] VITALS: BMI 25.5
[2023-03-24 19:03] VITALS: BP 137/60; PULSE 90; RESP 20; TEMP 36.4; O2SAT 95; BMI 25.5
--- NOTE | 2023-03-24 19:03 | DI.RAD.S_ITS ---
PROCEDURE: XR CHEST 1V INDICATIONS: Shortness of breath TECHNIQUE: One view of the chest was acquired. COMPARISON: [facility], CR, XR CHEST 2V, 03/18/2023, 11:26. [facility], CT, CT ANGIO CHEST PE, 01/12/2023, 8:18. [facility], CR, XR CHEST 1V, 03/19/2023, 15:47. FINDINGS: Surgical changes and devices: Partial left pulmonary Lungs and pleura: Opacification of the left hemithorax, which has volume loss, with contralateral mediastinal shift. Findings are not significantly changed from recent chest films. Volume loss is at least secondary to partial left pneumonectomy. Right lung remains grossly clear. Mediastinum: Mediastinal contours appear normal. Heart size is normal. Bones and chest wall: No suspicious bony lesions. Overlying soft tissues appear unremarkable. IMPRESSION: Unchanged opacification of left hemithorax with contralateral mediastinal shift suggesting a malignant process. Right lung remains grossly clear. Dictated by: Kiran Hanna M.D. on 03/24/2023 at 19:26 Approved by: Kiran Hanna M.D. on 03/24/2023 at 19:29
[2023-03-24 19:12] LABS: Add Manual Diff / Slide Review NO; Basophils Absolute Auto 100 /uL (0-100); Basophils Percent Auto 1.1 % (0-2); Eosinophils Absolute Auto 100 /uL (0-450); Eosinophils Percent Auto 2.6 % (2-4); Hematocrit 31.4 % (36-46); Hemoglobin 10.2 g/dL (12.0-16.0); Lymphocytes Absolute Auto 700 /uL (1100-4500); Mean Corpuscular HGB Conc 32.5 % (30-36); Mean Corpuscular Hemoglobin 27.4 PG (26-34); Mean Corpuscular Volume 84.4 fL (80-100); Monocytes Absolute Auto 500 /uL (0-900); Neutrophils Absolute Auto 3400 /uL (1500-7000); Neutrophils Percent Auto 71.3 % (50-75); Platelet Count 282 X10^3/uL (150-400); Red Blood Cell Count 3.72 X10^6/uL (4.0-5.2); Red Cell Distribution Width 19.3 % (11.6-14.8); White Blood Cell Count 4.8 X10^3/uL (4.5-11.0)
[2023-03-24 19:18] LABS: INR 1.3 (0.9-1.3); Prothrombin Time 14.6 SECONDS (10.1-12.7)
[2023-03-24 19:23] LABS: Lactate (Lactic Acid) 1.1 mmol/L (0.7-2.1)
[2023-03-24 19:24] LABS: Alanine Aminotransferase 45 IU/L (<35); Albumin Globulin Ratio 1.1 (1.0-2.8); Alkaline Phosphatase 257 U/L (38-126); Aspartate Aminotransferase 43 IU/L (14-36); BUN Creatinine Ratio 31.5 (6-22); Bilirubin Total 0.6 mg/dL (0.2-1.3); Blood Urea Nitrogen 23 mg/dL (7-17); Calcium 9.7 mg/dL (8.4-10.2); Carbon Dioxide 23 mmol/L (22-32); Chloride 106 mmol/L (98-107); Estimated Glomerular Filt Rate > 60 mL/min (>60); Globulin 3.5 g/dL (1.7-4.1); Glucose 103 mg/dL (80-110); HEMOLYSIS < 15 (0-50); Potassium 3.8 mmol/L (3.4-5.1); Sodium 138 mmol/L (137-145); Total Protein 7.5 g/dL (6.3-8.2)
[2023-03-24 19:25] VITALS: PULSE 86; RESP 19; O2SAT 95
[2023-03-24 19:30] VITALS: BP 136/59; PULSE 89; RESP 25; O2SAT 94
[2023-03-24 19:36] LABS: NT-proBNP (BNP-Adult 18+) 444 pg/mL (<450); Troponin I < 0.012 ng/mL (0.01-0.034)
[2023-03-24 20:00] VITALS: BP 121/53; PULSE 88; RESP 19; O2SAT 93
--- NOTE | 2023-03-24 20:16 | ED.SOB ---
HPI - SOB/Dyspnea General Chief Complaint: Shortness of Breath/Dyspnea Stated Complaint: short of breath Time Seen by Provider: 03/24/23 19:04 Source: patient Mode of arrival: Ambulatory History of Present Illness HPI Narrative: Patient is 77-year-old female history of breast cancer and lung cancer with radiation to the same area. She finished radiation for her lung cancer 1 year ago. She is followed by Oncology at [facility]. She has a known pericardial effusion found on a routine echocardiogram. She actually has an appointment with Cardiology in 3 days echo was done before the appointment last week. Found to have pericardial effusion without evidence of tamponade. She reports today that she is having increasing shortness of breath. She says last week she was able to walk up stairs without any difficulty over the weekend unless couple of days she is had increasing shortness of breath with exertion. She denies any real orthopnea. No history of congestive heart failure, EF from last week shows 65-70% with mild concentric left ventricular hypertrophy large pericardial effusion circumferential. She reports that she is also had a history of pulmonary embolism back in September of 2022 she was on Eliquis for couple months and then Oncology took her off of it she is no longer on anticoagulation. Related Data Home Medications Medication Instructions Recorded Confirmed atorvastatin 40 mg tablet 40 mg PO DAILY 02/08/20 01/09/23 calcium [calcium citrate] PO BID 02/08/20 12/10/22 cholecalciferol (vitamin D3) 50 50 mcg PO DAILY 02/08/20 12/25/22 mcg (2,000 unit) capsule escitalopram oxalate 20 mg tablet 20 mg PO BEDTIME 02/08/20 12/25/22 apixaban [Eliquis] PO 12/10/22 12/10/22 gabapentin 100 mg capsule 100 mg PO 01/09/23 omeprazole 40 mg capsule,delayed 40 mg PO DAILY 01/09/23 01/09/23 release pentoxifylline 400 mg 400 mg PO BID 01/09/23 01/09/23 tablet,extended release Previous Rx's Medication Instructions Recorded famotidine 20 mg tablet 20 mg PO BEDTIME #14 tabs 01/09/23 Allergies Allergy/AdvReac Type Severity Reaction Status Date / Time No Known Drug Allergies Allergy Verified 03/19/23 15:35 Review of Systems Review of Systems ROS Unobtainable: All systems reviewed & are unremarkable except as noted in HPI and below Patient History Medical History (Updated 03/25/23 @ 02:42 by Alison Potts DO) 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, cervical Hyperlipidemia Hypertension Shoulder impingement syndrome Surgical History Previous section Family History Unknown Cancer Social History household members: family lives independently: Yes occupational status: previously employed Smoking Status: Former smoker alcohol intake: current substance use type: does not use Smoking Status: Former smoker alcohol intake frequency: 0-2 drinks per day Substance Use Type: does not use Exam Initial Vital Signs Initial Vital Signs: Vital Signs Temperature 97.5 F L 03/24/23 19:03 Pulse Rate 90 03/24/23 19:03 Respiratory Rate 20 03/24/23 19:03 Blood Pressure 137/60 03/24/23 19:03 Pulse Oximetry 95 03/24/23 19:03 Oxygen Delivery Method Room Air 03/24/23 19:03 GENERAL: Alert 77-year-old female appears comfortable HEENT: Head atraumatic,EOMI, pupils reactive, face symmetric, moist mucous membranes CARDIOVASCULAR: Regular rate and rhythm without murmurs, rubs or gallops. RESPIRATORY: Breath sounds equal bilaterally. Rhonchi left lower base Significant left breast swelling left-sided swelling. Patient reports that this is chronic likely from radiation in the same area. Mildly erythematous she also reports that it is chronically slightly erythematous ABDOMEN: Soft, nontender. Normoactive bowel sounds all 4 quadrants. No guarding or rebound. EXTREMITIES: Normal range of motion, no clubbing or edema. Neurovascularly intact NEUROLOGICAL: Alert and oriented x4. SKIN: Warm, dry, no laceration, no petechiae, no rashes or lesions. Course Orders Ordered: ED Orders 03/24/23 19:03 XR chest 1V Stat EKG-12 Lead Stat Measure peak expiratory flow ONCE RT Consult Eval and Treat NOW 03/24/23 19:05 BNP [NT-proBNP (BNP-Adult 18+)] Stat Complete Blood Count AUTO DIFF Stat Comprehensive Metabolic Panel Stat D Dimer Stat Lactate (Lactic Acid) Stat NT-proBNP (BNP-Adult 18+) Stat Prothrombin Time INR Stat Troponin I Stat Vital Signs Vital signs: Vital Signs - 8 hr 03/24/23 20:30 03/24/23 20:30 03/24/23 21:00 Pulse Rate 88 Respiratory Rate 23 Blood Pressure 141/65 H 137/60 Pulse Oximetry 93 Oxygen Delivery Method 03/24/23 21:00 03/25/23 00:42 03/25/23 00:42 Pulse Rate 84 103 H Respiratory Rate 23 Blood Pressure 187/86 H Pulse Oximetry 93 91 Oxygen Delivery Method Room Air 03/25/23 00:58 03/25/23 00:58 03/25/23 01:00 Pulse Rate 85 Respiratory Rate Blood Pressure 163/72 H 153/73 H Pulse Oximetry 93 Oxygen Delivery Method Room Air 03/25/23 01:00 03/25/23 01:30 03/25/23 01:30 Pulse Rate 85 87 Respiratory Rate Blood Pressure 164/74 H Pulse Oximetry 94 94 Oxygen Delivery Method Room Air Room Air 03/25/23 02:00 03/25/23 02:00 03/25/23 02:30 Pulse Rate 83 Respiratory Rate Blood Pressure 168/77 H 160/77 H Pulse Oximetry 92 Oxygen Delivery Method Room Air 03/25/23 02:30 03/25/23 02:54 Pulse Rate 86 90 Respiratory Rate Blood Pressure Pulse Oximetry 93 94 Oxygen Delivery Method Room Air MDM - SOB/Dyspnea Lab Data 03/24/23 19:05 03/24/23 19:05 Labs: Lab Results 03/24/23 03/24/23 03/24/23 Range/Units 19:05 19:05 19:05 WBC 4.8 (4.5-11.0) X10^3/uL RBC 3.72 L (4.0-5.2) X10^6/uL Hgb 10.2 L (12.0-16.0) g/dL Hct 31.4 L (36-46) % MCV 84.4 (80-100) fL MCH 27.4 (26-34) PG MCHC 32.5 (30-36) % RDW 19.3 H (11.6-14.8) % Plt Count 282 (150-400) X10^3/uL Neut % (Auto) 71.3 (50-75) % Lymph % (Auto) 15.0 L (25-40) % Stoddard % (Auto) 10.0 (3-14) % Eos % (Auto) 2.6 (2-4) % Baso % (Auto) 1.1 (0-2) % Neut # (Auto) 3400 (7293-6683) /uL Lymph # (Auto) 700 L (5564-4833) /uL Stoddard # (Auto) 500 (0-900) /uL Eos # (Auto) 100 (0-450) /uL Baso # (Auto) 100 (0-100) /uL PT 14.6 H (10.1-12.7) SECONDS INR 1.3 (0.9-1.3) D-Dimer (<500) ng/ml Sodium 138 (137-145) mmol/L Potassium 3.8 (3.4-5.1) mmol/L Chloride 106 (98-107) mmol/L Carbon Dioxide 23 (22-32) mmol/L BUN 23 H (7-17) mg/dL Creatinine 0.73 (0.52-1.04) mg/dL Estimated GFR > 60 (>60) mL/min BUN/Creatinine Ratio 31.5 H (6-22) Glucose 103 (80-110) mg/dL Lactate (0.7-2.1) mmol/L Calcium 9.7 (8.4-10.2) mg/dL Total Bilirubin 0.6 (0.2-1.3) mg/dL AST 43 H (14-36) IU/L ALT 45 H (<35) IU/L Alkaline Phosphatase 257 H (38-126) U/L Troponin I < 0.012 (0.01-0.034) ng/mL NT-Pro-B Natriuret Pep 444 (<450) pg/mL Total Protein 7.5 (6.3-8.2) g/dL Albumin 4.0 (3.5-5.0) g/dL Globulin 3.5 (1.7-4.1) g/dL Albumin/Globulin Ratio 1.1 (1.0-2.8) 03/24/23 03/24/23 03/24/23 Range/Units 19:05 19:05 19:05 WBC (4.5-11.0) X10^3/uL RBC (4.0-5.2) X10^6/uL Hgb (12.0-16.0) g/dL Hct (36-46) % MCV (80-100) fL MCH (26-34) PG MCHC (30-36) % RDW (11.6-14.8) % Plt Count (150-400) X10^3/uL Neut % (Auto) (50-75) % Lymph % (Auto) (25-40) % Stoddard % (Auto) (3-14) % Eos % (Auto) (2-4) % Baso % (Auto) (0-2) % Neut # (Auto) (5740-8225) /uL Lymph # (Auto) (2212-6971) /uL Stoddard # (Auto) (0-900) /uL Eos # (Auto) (0-450) /uL Baso # (Auto) (0-100) /uL PT (10.1-12.7) SECONDS INR (0.9-1.3) D-Dimer 1359 H (<500) ng/ml Sodium (137-145) mmol/L Potassium (3.4-5.1) mmol/L Chloride (98-107) mmol/L Carbon Dioxide (22-32) mmol/L BUN (7-17) mg/dL Creatinine (0.52-1.04) mg/dL Estimated GFR (>60) mL/min BUN/Creatinine Ratio (6-22) Glucose (80-110) mg/dL Lactate 1.1 (0.7-2.1) mmol/L Calcium (8.4-10.2) mg/dL Total Bilirubin (0.2-1.3) mg/dL AST (14-36) IU/L ALT (<35) IU/L Alkaline Phosphatase (38-126) U/L Troponin I (0.01-0.034) ng/mL NT-Pro-B Natriuret Pep 436 (<450) pg/mL Total Protein (6.3-8.2) g/dL Albumin (3.5-5.0) g/dL Globulin (1.7-4.1) g/dL Albumin/Globulin Ratio (1.0-2.8) Imaging Data CT scan - chest: Radiologist's Impression: No evidence of pulmonary embolism Persistent masslike consolidation and volume loss involving the left upper lobe as well as peribronchial regions of left lower lobe with associated bronchovascular encasement and narrowing including cutoff of the left upper lobe pulmonary artery and bronchus. The findings are progressively increased compared to the prior studies suggesting progression of disease. Consider follow-up evaluation with PET-CT or further evaluation Ground-glass opacities and peribronchial consolidation in left lower lobe are similar to prior study and may reflect infection or lymphangitic spread of disease Slight increase in size of large pericardial effusion measuring 3 point cm in thickness increase from 2.7 cm previously Bilateral pleural effusions Chest x-ray: Radiologist's Impression: PROCEDURE:? XR CHEST 1V ? INDICATIONS:? Shortness of breath ? TECHNIQUE:? One view of the chest was acquired.? ? COMPARISON:? [facility], CR, XR CHEST 2V, 03/18/2023, 11:26.? [facility], CT, CT ANGIO CHEST PE, 01/12/2023, 8:18.? [facility], CR, XR CHEST 1V, 03/19/2023, 15:47. ? FINDINGS:? ? Surgical changes and devices:? Partial left pulmonary ? Lungs and pleura:? Opacification of the left hemithorax, which has volume loss, with contralateral mediastinal shift.? Findings are not significantly changed from recent chest films.? Volume loss is at least secondary to partial left pneumonectomy.? Right lung remains grossly clear. ? Mediastinum:? Mediastinal contours appear normal.? Heart size is normal.? ? Bones and chest wall:? No suspicious bony lesions.? Overlying soft tissues appear unremarkable.? ? IMPRESSION:? Unchanged opacification of left hemithorax with contralateral mediastinal shift suggesting a malignant process.? Right lung remains grossly clear. ? ? Dictated by: Kiran Hanna M.D. on 03/24/2023 at 19:26 ECG Data Interpretation: Sinus rhythm rate 90 VT interval 162 QRS 94 QTC 420 similar to previous EKG no ST changes low voltage noted. No evidence of electric Alternans MDM Narrative Medical decision making narrative: Patient is 77-year-old female history of breast cancer lung cancer known pericardial effusion presenting today with increasing shortness of breath. She is hemodynamically stable, not hypotensive or tachycardic. She has no evidence of fluid overload. She is a negative BNP and negative troponin and a D-dimer 1300. She does have a prior history of pulmonary embolism. Unfortunately CT scanner was down patient was sent to [facility] where she had a CT angio to rule out PE. It is found that she has a left upper lobe mass which is bigger in size and previous her left long on x-ray is similar to previous. She is increasing pericardial effusion as well. X-ray shows almost complete atelectasis left lung. Patient is not short of breath with stable vitals while at rest. Dr. Moncada, on-call oncology updated on patient's worsening lung mass pericardial effusion. At this time can follow-up outpatient if stable may need referral to CVT Dr. Russo on-call cardiology updated on increasing pericardial effusion. With known appointment in 2 days no need for any emergent transfer. Can have scheduled for cardio centesis done from a partner in the group but not emergent. Agrees with follow-up with Oncology regards to mass. At this time there does not appear to be any emergent reason to transfer her for further evaluation she has close outpatient follow-up. She is not on stable. I suspect that both increasing left upper lobe mass and pericardial effusion are causing her to have increasing shortness of breath. At this time discuss with patient and daughter when to return. All questions have been addressed to the best of my ability Discharge Plan Departure Patient Disposition: Home Clinical Impression: Acute pericardial effusion, Mass of upper lobe of left lung Instructions: Lung Cancer Activity Restrictions/Additional Instructions: *You have been diagnosed with lung cancer, pericardial effusion *What to do: At this time your increased shortness of breath is probably due to a couple of factors. Given increasing left upper lobe and increased fluid around her heart. You will need to follow-up with oncology so please call them 1st thing in the morning [facility] cardiology as scheduled on . No strenuous activity *Continue to take medications as directed *Follow up with your primary care provider in 2-3 days or call [phone] Louis's office tomorrow Follow-up with oncology *Return to ER if you should have chest pain shortness of breath or any new, worsening or concerning symptoms Prescriptions: No Action apixaban [Eliquis] PO famotidine 20 mg tablet 20 mg PO BEDTIME Qty: 14 0RF Rx Instructions: If this seems to help follow-up with your primary care physician for a refill or call the office of [facility] and let us know if you do need a refill or try a different medication and we can call it in also. omeprazole 40 mg Capsule,Delayed Release(Dr/Ec) 40 mg PO DAILY pentoxifylline 400 mg tablet extended release 400 mg PO BID Patient Comments: TAKE ONE TABLET BY MOUTH ONE TIME DAILY gabapentin 100 mg capsule 100 mg PO Patient Comments: Take 1 capsule by mouth three times a day increase by 100 mg a day every five days until taking 3 capsules (300mg) three times a day escitalopram oxalate 20 mg tablet 20 mg PO BEDTIME calcium PO BID cholecalciferol (vitamin D3) 50 mcg (2,000 unit) capsule 50 mcg PO DAILY atorvastatin 40 mg tablet 40 mg PO DAILY Referrals: Lul Louis MD [Physician] - May Garcia DO [Physician] - Fred Boateng MD [Primary Care Provider] - Stand Alone Forms: Patient Portal/API
[2023-03-24 20:30] VITALS: BP 141/65; PULSE 88; RESP 23; O2SAT 93
[2023-03-24 20:46] LABS: D Dimer 1359 ng/ml (<500)
[2023-03-24 20:55] LABS: NT-proBNP (BNP-Adult 18+) 436 pg/mL (<450)
[2023-03-24 21:00] VITALS: BP 137/60; PULSE 84; RESP 23; O2SAT 93
[2023-03-25] VITALS (7 sets, daily range): BP systolic 153–187; BP diastolic 72–86; PULSE 83–103; O2SAT 91–94
--- NOTE | 2023-03-25 00:43 | PC.NURSE ---
Pt returned from [facility] for PE study
== END 2023-03-25 03:00 | disposition home or self-care (01) ==
PROVIDERS: Emergency Provider Emergency Medicine; PCP Family Medicine
DX: I30.9 Acute pericarditis, unspecified (principal); R91.8 Other nonspecific abnormal finding of lung field
CPT/HCPCS: 36415; 71045; 80053; 83605; 83880; 84484; 85025; 85379; 85610; 93005; 93010; 99284

== ENCOUNTER → 2023-03-25 15:42 | Outpatient (CLI) | payer MEDICARE, OTHER, SELFPAY ==
[2020-09-10 23:54] VITALS: BMI 25.5
--- NOTE | 2023-03-25 | DI.MRI.S_ITS ---
PROCEDURE: MR BRACHIAL PLEXUS WWO CON INDICATIONS: Left lung cancer TECHNIQUE: Noncontrast axial, coronal, and sagittal T1 spin echo and STIR through the affected brachial plexus region. Additional axial T1 spin echo and coronal T2 fast spin echo acquired through both brachial plexuses with a large [id number]. Optional contrast may be given, followed by axial, coronal, and sagittal T1 spin echo with fat saturation through the affected side. COMPARISON: [facility], CT, CT ANGIO CHEST PE, 03/25/2023, 0:00. FINDINGS: Image quality: Motion is present within the exam, limiting evaluation. Brachial plexus: The C5-T1 origins of the brachial plexus lysed. Visualized portions demonstrate no pseudomeningoceles. Within the scalene triangle, costoclavicular space, and pectoralis minor space, the visualized trunks and/or cords of the brachial plexus demonstrate normal morphology and signal. However, again they are not visualized in their entirety. Soft tissues: There is partially visualized left pulmonary mass areas of streaky increased STIR signal/enhancement are present within the posterior chest wall musculature surrounding the scapula. Partially visualized left upper lobe pulmonary mass and posterior loculated fluid is present. Enhancing left medial supraclavicular nodes are present similar as identified on chest CT. Bones: Marrow demonstrates normal overall signal. IMPRESSION: Incomplete visualization of nerve roots on all sequences secondary to motion. No definitive nerve root injury or areas of abnormal enhancement, signal or compression are clearly identified. Incompletely visualized pulmonary mass. Please see CT chest of 03/25/2023 for further details. Increased signal within the posterior chest wall musculature likely related to inflammation and/or pulmonary disease extension. As previously noted on CT chest report, PET scan is recommended for further evaluation as indicated. Stable appearance of supraclavicular lymph nodes presumably metastatic, as identified on CT chest. Dictated by: Belle Brock M.D. on 03/26/2023 at 12:19 Approved by: Belle Brock M.D. on 03/26/2023 at 13:59
== END ==
PROVIDERS: PCP Family Medicine; Referring Provider Family Medicine; Visit Provider Family Medicine
DX: C34.92 Malignant neoplasm of unspecified part of left bronchus or lung (principal); M25.512 Pain in left shoulder; R59.0 Localized enlarged lymph nodes
CPT/HCPCS: 71552; A9579

== ENCOUNTER → 2023-03-30 15:25 | Outpatient (CLI) | payer MEDICARE, OTHER, SELFPAY ==
[2020-09-10 23:54] VITALS: BMI 25.5
--- NOTE | 2023-03-30 15:30 | DI.RAD.S_ITS ---
PROCEDURE: XR CHEST 2V INDICATIONS: ACUTE COUGH TECHNIQUE: 2 views of the chest were acquired. COMPARISON: [facility], CT, CT ANGIO CHEST PE, 03/25/2023, 0:00. [facility], CR, XR CHEST 1V, 03/24/2023, 19:05. FINDINGS: Surgical changes and devices: Surgical clips are projected over the left hilum. Lungs and pleura: Right lung is clear. There is likely some aerated left lung with a pleural effusion layered posteriorly. There is volume loss on the left with elevation of the left hemidiaphragm. Findings are similar to the comparison study dated March 24, 2023. Mediastinum: Mediastinal contours are normal. Heart size is poorly characterized given left hemithoracic opacification. Bones and chest wall: No suspicious bony abnormalities. Soft tissues appear unremarkable. IMPRESSION: 1. Opacification of the left hemithorax suggesting large pleural effusion. 2. Cardiac silhouette is poorly characterized. Recurrence pericardial effusion cannot be excluded. Dictated by: Jazzy Varghese M.D. on 03/30/2023 at 17:00 Approved by: Jazzy Varghese M.D. on 03/30/2023 at 17:03
== END ==
PROVIDERS: PCP Family Medicine; Referring Provider Family Medicine; Visit Provider Family Medicine
DX: R05.1 Acute cough (principal)
CPT/HCPCS: 71046

== ENCOUNTER → 2023-04-08 11:25 | Outpatient (ROUT) | payer MEDICARE, OTHER, SELFPAY ==
[2020-09-10 23:54] VITALS: BMI 25.5
[2023-04-08 11:41] LABS: Ammonia (NH3) 20 umol/L (9-30)
[2023-04-08 11:43] LABS: Add Manual Diff / Slide Review NO; Basophils Absolute Auto 100 /uL (0-100); Basophils Percent Auto 2.5 % (0-2); Eosinophils Absolute Auto 200 /uL (0-450); Hematocrit 36.5 % (36-46); Hemoglobin 11.9 g/dL (12.0-16.0); Lymphocytes Absolute Auto 700 /uL (1100-4500); Lymphocytes Percent Auto 14.3 % (25-40); Mean Corpuscular HGB Conc 32.7 % (30-36); Mean Corpuscular Volume 82.6 fL (80-100); Monocytes Absolute Auto 600 /uL (0-900); Monocytes Percent Auto 11.3 % (3-14); Neutrophils Absolute Auto 3300 /uL (1500-7000); Neutrophils Percent Auto 66.9 % (50-75); Platelet Count 381 X10^3/uL (150-400); Red Blood Cell Count 4.41 X10^6/uL (4.0-5.2); Red Cell Distribution Width 19.1 % (11.6-14.8); White Blood Cell Count 4.9 X10^3/uL (4.5-11.0)
[2023-04-08 11:47] LABS: Alanine Aminotransferase 39 IU/L (<35); Albumin Globulin Ratio 1.3 (1.0-2.8); Alkaline Phosphatase 321 U/L (38-126); Amylase 51 U/L (30-110); Aspartate Aminotransferase 42 IU/L (14-36); BUN Creatinine Ratio 25.8 (6-22); Bilirubin Total 0.7 mg/dL (0.2-1.3); Blood Urea Nitrogen 42 mg/dL (7-17); C-Reactive Protein Quant 6.2 mg/dL (<1.0); Calcium 9.8 mg/dL (8.4-10.2); Carbon Dioxide 24 mmol/L (22-32); Chloride 100 mmol/L (98-107); Estimated Glomerular Filt Rate 32 mL/min (>60); Glucose 97 mg/dL (80-110); HEMOLYSIS < 15 (0-50); Lipase 69 U/L (23-300); Potassium 3.8 mmol/L (3.4-5.1); Sodium 138 mmol/L (137-145)
== END ==
PROVIDERS: PCP Family Medicine; Visit Provider Family Medicine
DX: C34.90 Malignant neoplasm of unspecified part of unspecified bronchus or lung (principal); R19.7 Diarrhea, unspecified; R41.0 Disorientation, unspecified; R53.1 Weakness
CPT/HCPCS: 80053; 82140; 82150; 83690; 85025; 86140; 87086

== ENCOUNTER → 2023-04-09 15:03 | Outpatient (CLI) | payer MEDICARE, OTHER, SELFPAY ==
[2020-09-10 23:54] VITALS: BMI 25.5
[2023-04-09 18:36] LABS: Clostridium Difficile Tox PCR Negative for C. diff (Negative)
== END ==
PROVIDERS: PCP Family Medicine; Referring Provider Family Medicine; Visit Provider Family Medicine
DX: R19.7 Diarrhea, unspecified (principal)
CPT/HCPCS: 87493

== ENCOUNTER → 2023-04-10 08:12 | Outpatient (CLI) | payer MEDICARE, OTHER, SELFPAY ==
[2020-09-10 23:54] VITALS: BMI 25.5
--- NOTE | 2023-04-10 | DI.MRI.S_ITS ---
PROCEDURE: MR HEAD/BRAIN WO/W CON INDICATIONS: Disorientation, unspecified TECHNIQUE: Noncontrast axial T1 spin echo, axial T2 fast spin echo, sagittal and axial FLAIR, coronal T2 fast spin echo, axial gradient echo, axial diffusion and ADC through the brain. After the administration of contrast, axial and coronal and sagittal T1 spin echo with fat saturation through the brain. COMPARISON: [facility], , MR HEAD/BRAIN WO/W CON, 09/10/2020, 17:42. FINDINGS: Image quality: Excellent. CSF spaces: Basal cisterns are patent. No extra-axial fluid collections. Ventricles are normal in size and shape. Brain: No midline shift. No intracranial bleeds or masses. No abnormal intracranial enhancement. There is cerebral volume loss for age. There is periventricular white matter chronic small vessel ischemic change. The brainstem appears normal. Diffusion-weighted images demonstrate no acute ischemic insults. No chronic ischemic insults. Normal intravascular flow voids are present. Skull and face: Calvarial marrow is normal in signal. Orbits appear normal. Sinuses: Right maxillary sinus mucous retention cyst. The Sinuses and mastoids otherwise appear clear. IMPRESSION: 1. Normal appearance of the brain for patient's age. No cause for patient's symptoms is identified. 2. No acute intracranial abnormalities. No masses or abnormal enhancement. Dictated by: Frederic Tavraez M.D. on 04/10/2023 at 10:07 Approved by: Frederic Tavarez M.D. on 04/10/2023 at 10:12
[2023-04-10 09:45] LABS: BUN Creatinine Ratio 28.2 (6-22); Blood Urea Nitrogen 20 mg/dL (7-17); Carbon Dioxide 30 mmol/L (22-32); Chloride 100 mmol/L (98-107); Estimated Glomerular Filt Rate > 60 mL/min (>60); Glucose 105 mg/dL (80-110); HEMOLYSIS < 15 (0-50); Potassium 4.3 mmol/L (3.4-5.1); Sodium 139 mmol/L (137-145)
[2023-04-10 10:04] LABS: Hematocrit 36.3 % (36-46); Hemoglobin 12.1 g/dL (12.0-16.0); Mean Corpuscular HGB Conc 33.3 % (30-36); Mean Corpuscular Hemoglobin 27.3 PG (26-34); Mean Corpuscular Volume 82.2 fL (80-100); Platelet Count 367 X10^3/uL (150-400); Red Blood Cell Count 4.41 X10^6/uL (4.0-5.2); Red Cell Distribution Width 19.2 % (11.6-14.8); White Blood Cell Count 4.5 X10^3/uL (4.5-11.0)
== END ==
PROVIDERS: PCP Family Medicine; Referring Provider Family Medicine; Visit Provider Family Medicine
DX: R41.0 Disorientation, unspecified (principal); C34.92 Malignant neoplasm of unspecified part of left bronchus or lung; R19.7 Diarrhea, unspecified; J34.1 Cyst and mucocele of nose and nasal sinus
CPT/HCPCS: 70553; 80048; 85027

== ENCOUNTER → 2023-05-14 17:06 | Outpatient (CLI) | payer MEDICARE, OTHER, SELFPAY ==
[2020-09-10 23:54] VITALS: BMI 25.5
--- NOTE | 2023-05-14 17:07 | DI.MRI.S_ITS ---
PROCEDURE: MR CERVICAL SPINE WO CON INDICATIONS: NECK PAIN TECHNIQUE: Noncontrast sagittal T1 spin echo and T2 fast spin echo, sagittal STIR, foraminal oblique sagittal T2 fast spin echo, and axial gradient echo or T2 fast spin echo through the cervical spine. COMPARISON: [facility], MR, MR CERVICAL SPINE WO CON, 10/20/2018, 12:58. FINDINGS: Image quality: Excellent. Alignment and Curvature: Reversal the normal cervical lordosis. Grade 1 anterolisthesis of C4 on C5, C5 on C6 and C7 on T1. Bone Marrow: Marrow demonstrates normal overall signal. Spinal Cord: Visualized spinal cord has normal size and signal. No cerebellar tonsillar herniation. Paraspinous Soft Tissues: No paravertebral masses. Prevertebral soft tissues are normal in thickness. C2-C3: Disc desiccation. Minimal disc osteophyte complex. No central canal stenosis. No neural foraminal stenosis. C3-C4: Disc desiccation. Mild disc osteophyte complex. Small superimposed central protrusion. No central canal stenosis. Facet and uncovertebral arthropathy. Moderate to severe left neural foraminal stenosis. Mild right neural foraminal stenosis. C4-C5: Disc desiccation height loss with small posterior disc bulge. Mild central canal stenosis. Facet and uncovertebral arthropathy resulting in moderate to severe left neural foraminal stenosis and mild right neural foraminal stenosis. C5-C6: Disc desiccation height loss with a small posterior disc osteophyte complex abutting the ventral cord. Mild central canal stenosis. Facet and uncovertebral arthropathy. Mild bilateral neural foraminal stenosis. C6-C7: Disc desiccation height loss with a small posterior disc osteophyte complex abutting the ventral cord. Mild central canal stenosis. Facet and uncovertebral arthropathy. No neural foraminal stenosis. C7-T1: Disc desiccation height loss with a small posterior disc osteophyte complex abutting the ventral cord. Mild central canal stenosis. No neural foraminal stenosis. IMPRESSION: 1. Multilevel degenerative changes of the cervical spine are not significantly changed compared to prior. 2. Mild multilevel central canal stenosis. Neural foraminal stenosis is worse at C3-C4 and C4-C5 with moderate to severe left neural foraminal stenosis. Dictated by: Frederic Tavarez M.D. on 05/15/2023 at 8:39 Approved by: Frederic Tavarez M.D. on 05/15/2023 at 8:52
== END ==
PROVIDERS: PCP Family Medicine; Referring Provider Family Medicine; Visit Provider Family Medicine
DX: M47.812 Spondylosis without myelopathy or radiculopathy, cervical region (principal); M48.02 Spinal stenosis, cervical region; M54.2 Cervicalgia; M79.602 Pain in left arm
CPT/HCPCS: 72141

== ENCOUNTER 2023-05-25 17:01 | Observation (INO) | payer MEDICARE, OTHER, SELFPAY ==
[2020-09-10 23:54] VITALS: BMI 25.5
[2023-05-25] VITALS (10 sets, daily range): BP systolic 125–161; BP diastolic 65–82; PULSE 99–103; RESP 18–30; TEMP 37.1–37.3; O2SAT 92–97; BMI 24.0
--- NOTE | 2023-05-25 17:23 | DI.RAD.S_ITS ---
PROCEDURE: XR CHEST 1V INDICATIONS: altered mental status TECHNIQUE: One view of the chest was acquired. COMPARISON: [facility], CT, CT ANGIO CHEST PE, 03/25/2023, 0:00. [facility], CR, XR CHEST 1V, 03/24/2023, 19:05. [facility], CR, XR CHEST 2V, 03/30/2023, 15:34. FINDINGS: Surgical changes and devices: Surgical clips in left midlung zone. Lungs and pleura: Chronic opacification of the left hemithorax, likely secondary to large left pleural effusion. Right lung is clear. No pleural effusions or pneumothorax. Mediastinum: Mediastinal contours appear normal. Heart size is normal. Bones and chest wall: No suspicious bony lesions. Overlying soft tissues appear unremarkable. IMPRESSION: 1. Chronic opacification of the left hemithorax likely secondary to a large left pleural effusion. Overall, the appearance is stable. 2. Right lung is clear. Dictated by: Rosalva Walker M.D. on 05/25/2023 at 17:56 Approved by: Rosalva Walker M.D. on 05/25/2023 at 17:58
[2023-05-25 18:01] LABS: Add Manual Diff / Slide Review NO; Basophils Absolute Auto 0 /uL (0-100); Basophils Percent Auto 0.7 % (0-2); Eosinophils Absolute Auto 100 /uL (0-450); Eosinophils Percent Auto 1.4 % (2-4); Hematocrit 33.7 % (36-46); Lymphocytes Absolute Auto 500 /uL (1100-4500); Lymphocytes Percent Auto 7.2 % (25-40); Mean Corpuscular HGB Conc 32.6 % (30-36); Mean Corpuscular Hemoglobin 27.2 PG (26-34); Mean Corpuscular Volume 83.4 fL (80-100); Monocytes Absolute Auto 600 /uL (0-900); Neutrophils Absolute Auto 5700 /uL (1500-7000); Neutrophils Percent Auto 82.7 % (50-75); Platelet Count 340 X10^3/uL (150-400); Red Blood Cell Count 4.04 X10^6/uL (4.0-5.2); Red Cell Distribution Width 18.9 % (11.6-14.8); White Blood Cell Count 6.9 X10^3/uL (4.5-11.0)
[2023-05-25 18:02] LABS: COVID19 -Nasal RAPID Negative (Negative)
[2023-05-25 18:02] LABS: Ammonia (NH3) < 9 umol/L (9-30)
--- NOTE | 2023-05-25 18:04 | DI.CT.S_ITS ---
PROCEDURE: CT ANGIO HEAD AND NECK INDICATIONS: confusion TECHNIQUE: After the administration of intravenous contrast, 1 mm thick sections acquired from the aortic arch through the [place] of [place]. 3-dimensional xajkxvn-[id number] (MIP) and/or volume rendering reformats were acquired of the central intracranial vasculature and neck separately. For radiation dose reduction, the following was used: automated exposure control, adjustment of mA and/or kV according to patient size. COMPARISON: [facility], CT, CT ANGIO CHEST PE, 03/25/2023, 0:00. [facility], MR, MR CERVICAL SPINE WO CON, 05/14/2023, 17:41. [facility], CT, CT ANGIO CHEST PE PROTOCOL, 05/25/2023, 18:21. [facility], CT, CT HEAD/BRAIN WO CON, 05/25/2023, 18:14. [facility], CR, XR CHEST 1V, 05/25/2023, 17:30. FINDINGS: Image quality: Diagnostic. BRAIN: CSF spaces: Ventricles are normal in size and shape. Basal cisterns are patent. No extra-axial fluid collections. Brain: No significant abnormality of the brain can be seen. Skull and face: Calvarium and facial bones appear intact, without suspicious lesions. Orbits appear normal. Sinuses: Sinuses and mastoids are clear. HEAD CT ANGIOGRAPHY: Anterior circulation: Intracranial internal carotid arteries are normal in size and flow. The flow within the paired anterior cerebral arteries is normal and symmetric. The flow within the middle cerebral arteries is normal and symmetric. The anterior communicating artery is not well seen. No aneurysms are seen. Posterior circulation: Visualized portions of the vertebral arteries demonstrate normal caliber, and join to form a normal appearing basilar artery. There is a prominent left posterior communicating artery seen, with an accompanying diminutive left P1 segment. This is attributed to a type origin of the right posterior cerebral artery, which is considered to be a normal developmental variant of typically no clinical consequence. The flow within the posterior cerebral arteries is normal and symmetric. No aneurysms are seen. NECK CT ANGIOGRAPHY: Carotid system: The great vessels demonstrate a conventional anatomy as they arise from the aortic arch. The origins of the common carotid arteries appear patent. The common carotid arteries demonstrate normal caliber and courses. The bifurcation regions demonstrate focal atherosclerotic irregularity and calcification, with 40-50% narrowing seen on each side. The more distal internal carotid arteries demonstrate normal course and caliber. Posterior circulation: The origins of the vertebral arteries both appear widely patent. The more superior extracranial portions of both vertebral arteries also demonstrate normal courses and calibers. They join to form a normal appearing basilar artery. Soft tissues: Visualized neck soft tissues demonstrate no suspicious abnormalities. Dense consolidation can be seen involving the visualized left upper lobe anteriorly. There is a partially visualized left-sided pleural effusion. Bones: Visualized cervical spine appears normally aligned. Moderate cervical spine degenerative change is seen. IMPRESSION: 40-50% narrowing can be seen involving both proximal internal carotid arteries. The vertebral arteries are within normal limits. No significant intracranial arterial abnormality is seen. Left lung abnormalities partially seen. Additional findings: type origin of the left posterior cerebral artery Moderate cervical spine degenerative change Any quantitative measurements of stenosis were performed using NASCET criteria. Dictated by: Niels Haines M.D. on 05/25/2023 at 18:13 Approved by: Niels Haines M.D. on 05/25/2023 at 18:18
--- NOTE | 2023-05-25 18:04 | DI.CT.S_ITS ---
PROCEDURE: CT HEAD/BRAIN WO CON INDICATIONS: confusion TECHNIQUE: Noncontrast 4.5 mm thick angled axial sections acquired from the foramen magnum to the vertex, with coronal and sagittal reformats. For radiation dose reduction, the following was used: automated exposure control, adjustment of mA and/or kV according to patient size. COMPARISON: [facility], CT, CT ANGIO HEAD AND NECK, 05/25/2023, 18:14. [facility], CT, CT ANGIO CHEST PE PROTOCOL, 05/25/2023, 18:21. FINDINGS: Image quality: Excellent. CSF spaces: Basal cisterns are patent. No extra-axial fluid collections. The ventricles are symmetric in size and shape. Brain: No intracranial bleeds or masses. There is cerebral volume loss for age, with resultant ventricular and sulcal prominence. There are periventricular and deep white matter chronic small vessel ischemic changes. There is intracranial internal carotid artery atherosclerosis. Skull and face: Calvarium and visualized facial bones appear intact, without suspicious lesions. Sinuses: Visualized sinuses and mastoids are clear. IMPRESSION: No acute intracranial process is seen. Dictated by: Niels Haines M.D. on 05/25/2023 at 18:11 Approved by: Niels Haines M.D. on 05/25/2023 at 18:12
--- NOTE | 2023-05-25 18:04 | ED.AMS ---
HPI - Altered Mental Status General Chief Complaint: Altered Mental Status Stated Complaint: confusion/poor breathing Time Seen by Provider: 05/25/23 17:45 Source: patient and family Mode of arrival: Ambulatory History of Present Illness HPI narrative: Patient is a 77-year-old female with complicated history breast cancer and lung cancer with recent pericardial effusion that was drained in March presenting today with about 2 days of increased confusion. She lives with daughter. Daughter reports that they were driving home from [place] [facility] yesterday daughter reports that she was very confused and agitated which is not her normal state. She has not had a fever she denies any chest pain or shortness of breath although she sounds audibly congested. No abdominal pain nausea or vomiting. Reports that the pericardial effusion was rather large and was drained as [facility] they got about 300 out. Has not really been rescanned sense. She is obviously confused able to follow some commands most history is from daughter and previous charts Related Data Home Medications Medication Instructions Recorded Confirmed atorvastatin 40 mg tablet 40 mg PO DAILY 02/08/20 05/25/23 acetaminophen 500 mg capsule 1,000 mg PO TID 05/25/23 05/25/23 duloxetine 20 mg capsule,delayed 20 mg PO BID 05/25/23 05/25/23 release famotidine 20 mg tablet 20 mg PO BEDTIME 05/25/23 05/25/23 fentanyl 12 mcg/hr transdermal 1 patch topical Q3D 05/25/23 05/25/23 patch gabapentin 300 mg capsule 900 mg PO 3XD 05/25/23 05/25/23 losartan 25 mg tablet 12.5 mg PO DAILY 05/25/23 05/25/23 omeprazole 40 mg capsule,delayed 40 mg PO BID 05/25/23 05/25/23 release Allergies Allergy/AdvReac Type Severity Reaction Status Date / Time No Known Drug Allergies Allergy Verified 03/19/23 15:35 Review of Systems Review of Systems ROS Unobtainable: All systems reviewed & are unremarkable except as noted in HPI and below Patient History Medical History (Updated 05/25/23 @ 20:16 by Alison Potts DO) 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, cervical Hyperlipidemia Hypertension Shoulder impingement syndrome Surgical History Previous section Family History Unknown Cancer Social History household members: family lives independently: Yes occupational status: previously employed Smoking Status: Former smoker alcohol intake: current substance use type: does not use Smoking Status: Former smoker alcohol intake frequency: 0-2 drinks per day Substance Use Type: does not use Exam Initial Vital Signs Initial Vital Signs: Vital Signs Temperature 98.7 F 05/25/23 17:20 Pulse Rate 103 H 05/25/23 17:20 Respiratory Rate 22 05/25/23 17:20 Blood Pressure 142/65 H 05/25/23 17:20 Pulse Oximetry 96 05/25/23 17:20 Oxygen Delivery Method Room Air 05/25/23 17:20 GENERAL: Alert 77-year-old female appears slightly older than stated age mild distress and in no acute distress. HEENT: Head atraumatic,EOMI, pupils reactive, face symmetric, moist mucous membranes CARDIOVASCULAR: Regular rate and rhythm without murmurs, rubs or gallops. RESPIRATORY: Coarse and decreased breath sounds, decreased on the left ABDOMEN: Soft, nontender. Normoactive bowel sounds all 4 quadrants. No guarding or rebound. EXTREMITIES: Normal range of motion, no clubbing or edema. Neurovascularly intact NEUROLOGICAL: Alert and oriented x2.Normal gait and speech. Cranial nerves II through XII grossly intact. Good [id number], good [id number], strength equal bilaterally, no dysarthria or aphasia, sensation in tact to soft touch bilaterally, no visual changes, no facial droop SKIN: Warm, dry, no laceration, no petechiae, no rashes or lesions. Scores NIH Stroke Scale Level of Conciousness: Alert, keenly responsive Ask month/age: Answers one question correctly, intubated follow commands Open/close eyes, close hand: Performs both tasks correctly Best gaze horizontal: Normal Visual childs: No visual loss Facial palsy: Normal symetrical movement Left arm drift: No drift for full 10 sec Right arm drift: No drift for full 10 sec Left leg drift: No drift for full 5 sec Right leg drift: No drift for full 5 sec Limb ataxia: Absent Sensory on face/arms/legs: Normal, no sensory loss Best language: No aphasia, normal Dysarthria: Normal Extinction or inattention: No abnormality Total NIH Stroke scale score: 1 Course Orders Ordered: ED Orders 05/25/23 18:04 CT angio head and neck Stat CT head/brain wo con Stat 05/25/23 18:11 CT angio chest PE protocol Stat 05/25/23 18:40 Covid-19 + FLU A/B + RSV - PCR Stat 05/25/23 19:17 Urine Drug Screen, Rapid Stat Urine Microscopic Stat Acetaminophen (Acetaminophen 325 Mg Tablet) 650 mg PO Q6H PRN PRN Reason: Fever/Mild Pain (1-3) Atorvastatin Calcium (Atorvastatin 20 Mg Tablet) 40 mg PO BEDTIME [facility] Duloxetine HCl (Duloxetine 20 Mg Capsule) 20 mg PO BID [facility] Famotidine (Famotidine 20 Mg Tablet) 20 mg PO BID [facility] Last Admin: 05/25/23 22:24 Dose: 20 mg Documented By: AT Fentanyl (Fentanyl 12 Mcg/Patch) 12 mcg TOP Q72H KEVIN Gabapentin (Gabapentin 300 Mg Capsule) 900 mg PO TID [facility] Last Admin: 05/25/23 22:24 Dose: 900 mg Documented By: AT Lorazepam (Lorazepam 0.5 Mg Tablet) 0.5 mg PO Q6HR PRN PRN Reason: Anxiety Lorazepam (Lorazepam 2 Mg/Ml Inj) 0.5 mg IV Q6HR PRN PRN Reason: Anxiety Losartan Potassium (Losartan 25 Mg Tablet) 12.5 mg PO DAILY [facility] Ondansetron HCl (Ondansetron 4 Mg/2 Ml Inj) 4 mg IV Q6HR PRN PRN Reason: Nausea And Vomiting Pantoprazole Sodium (Pantoprazole Dr 40 Mg Tablet) 40 mg PO BID [facility] Last Admin: 05/25/23 22:24 Dose: 40 mg Documented By: AT Discontinued Medications Aspirin (Aspirin Ec 325 Mg Tablet) 325 mg PO NOW ONE Stop: 05/25/23 20:17 Last Admin: 05/25/23 20:43 Dose: 325 mg Documented By: Furosemide (Furosemide 40 Mg/4 Ml Vial) 40 mg IV NOW ONE Stop: 05/25/23 20:16 Last Admin: 05/25/23 20:43 Dose: 40 mg Documented By: Vital Signs Vital signs: Vital Signs - 8 hr 05/25/23 19:31 05/25/23 20:00 05/25/23 20:00 Pulse Rate 100 H Respiratory Rate 18 Blood Pressure 161/81 H 139/71 Pulse Oximetry 95 MDM - Altered Mental Status Lab Data 05/25/23 17:42 05/25/23 17:42 Labs: Lab Results 05/25/23 05/25/23 05/25/23 Range/Units 17:36 17:42 17:42 WBC 6.9 (4.5-11.0) X10^3/uL RBC 4.04 (4.0-5.2) X10^6/uL Hgb 11.0 L (12.0-16.0) g/dL Hct 33.7 L (36-46) % MCV 83.4 (80-100) fL MCH 27.2 (26-34) PG MCHC 32.6 (30-36) % RDW 18.9 H (11.6-14.8) % Plt Count 340 (150-400) X10^3/uL Neut % (Auto) 82.7 H (50-75) % Lymph % (Auto) 7.2 L (25-40) % Riley % (Auto) 8.0 (3-14) % Eos % (Auto) 1.4 L (2-4) % Baso % (Auto) 0.7 (0-2) % Neut # (Auto) 5700 (0944-0532) /uL Lymph # (Auto) 500 L (5962-4293) /uL Riley # (Auto) 600 (0-900) /uL Eos # (Auto) 100 (0-450) /uL Baso # (Auto) 0 (0-100) /uL Sodium 137 (137-145) mmol/L Potassium 4.4 (3.4-5.1) mmol/L Chloride 100 (98-107) mmol/L Carbon Dioxide 25 (22-32) mmol/L BUN 25 H (7-17) mg/dL Creatinine 0.75 (0.52-1.04) mg/dL Estimated GFR > 60 (>60) mL/min BUN/Creatinine Ratio 33.3 H (6-22) Glucose 111 H (80-110) mg/dL Lactate (0.7-2.1) mmol/L Calcium 10.0 (8.4-10.2) mg/dL Total Bilirubin 0.9 (0.2-1.3) mg/dL AST 38 H (14-36) IU/L ALT 53 H (<35) IU/L Alkaline Phosphatase 369 H (38-126) U/L Ammonia < 9 L (9-30) umol/L Total Creatine Kinase (30-135) U/L Troponin I (0.01-0.034) ng/mL NT-Pro-B Natriuret Pep (<450) pg/mL Total Protein 8.1 (6.3-8.2) g/dL Albumin 4.3 (3.5-5.0) g/dL Globulin 3.8 (1.7-4.1) g/dL Albumin/Globulin Ratio 1.1 (1.0-2.8) Procalcitonin (<0.5) ng/mL Urine RBC (0-5/HPF) Urine WBC (0-5/HPF) Ur Squamous Epith Cells (0-5/HPF) Urine Bacteria (None) Hyaline Casts (None) Ur Culture Indicated? U Opiates 300ng/mL cut (Negative) Ur Oxycodone Screen (Negative) Urine Methadone Screen (Negative) Ur Barbiturates Screen (Negative) U Tricyclic Antidepress (Negative) Ur Phencyclidine Scrn (Negative) Ur Amphetamines Screen (Negative) U Methamphetamines Scrn (Negative) Ur MDMA Scrn (Ecstasy) (Negative) U Benzodiazepines Scrn (Negative) Urine Cocaine Screen (Negative) U Marijuana (THC) Screen (Negative) SARS-CoV-2 (PCR) (Negative) Influenza A (RT-PCR) (NEGATIVE) Influenza B (RT-PCR) (NEGATIVE) RSV (PCR) (Negative) 05/25/23 05/25/23 05/25/23 Range/Units 17:42 17:42 17:42 WBC (4.5-11.0) X10^3/uL RBC (4.0-5.2) X10^6/uL Hgb (12.0-16.0) g/dL Hct (36-46) % MCV (80-100) fL MCH (26-34) PG MCHC (30-36) % RDW (11.6-14.8) % Plt Count (150-400) X10^3/uL Neut % (Auto) (50-75) % Lymph % (Auto) (25-40) % Riley % (Auto) (3-14) % Eos % (Auto) (2-4) % Baso % (Auto) (0-2) % Neut # (Auto) (7123-9255) /uL Lymph # (Auto) (2123-5848) /uL Riley # (Auto) (0-900) /uL Eos # (Auto) (0-450) /uL Baso # (Auto) (0-100) /uL Sodium (137-145) mmol/L Potassium (3.4-5.1) mmol/L Chloride (98-107) mmol/L Carbon Dioxide (22-32) mmol/L BUN (7-17) mg/dL Creatinine (0.52-1.04) mg/dL Estimated GFR (>60) mL/min BUN/Creatinine Ratio (6-22) Glucose (80-110) mg/dL Lactate 1.2 (0.7-2.1) mmol/L Calcium (8.4-10.2) mg/dL Total Bilirubin (0.2-1.3) mg/dL AST (14-36) IU/L ALT (<35) IU/L Alkaline Phosphatase (38-126) U/L Ammonia (9-30) umol/L Total Creatine Kinase 28 L (30-135) U/L Troponin I < 0.012 (0.01-0.034) ng/mL NT-Pro-B Natriuret Pep (<450) pg/mL Total Protein (6.3-8.2) g/dL Albumin (3.5-5.0) g/dL Globulin (1.7-4.1) g/dL Albumin/Globulin Ratio (1.0-2.8) Procalcitonin 0.11 (<0.5) ng/mL Urine RBC (0-5/HPF) Urine WBC (0-5/HPF) Ur Squamous Epith Cells (0-5/HPF) Urine Bacteria (None) Hyaline Casts (None) Ur Culture Indicated? U Opiates 300ng/mL cut (Negative) Ur Oxycodone Screen (Negative) Urine Methadone Screen (Negative) Ur Barbiturates Screen (Negative) U Tricyclic Antidepress (Negative) Ur Phencyclidine Scrn (Negative) Ur Amphetamines Screen (Negative) U Methamphetamines Scrn (Negative) Ur MDMA Scrn (Ecstasy) (Negative) U Benzodiazepines Scrn (Negative) Urine Cocaine Screen (Negative) U Marijuana (THC) Screen (Negative) SARS-CoV-2 (PCR) Negative (Negative) Influenza A (RT-PCR) (NEGATIVE) Influenza B (RT-PCR) (NEGATIVE) RSV (PCR) (Negative) 05/25/23 05/25/23 05/25/23 Range/Units 17:42 18:40 19:17 WBC (4.5-11.0) X10^3/uL RBC (4.0-5.2) X10^6/uL Hgb (12.0-16.0) g/dL Hct (36-46) % MCV (80-100) fL MCH (26-34) PG MCHC (30-36) % RDW (11.6-14.8) % Plt Count (150-400) X10^3/uL Neut % (Auto) (50-75) % Lymph % (Auto) (25-40) % Riley % (Auto) (3-14) % Eos % (Auto) (2-4) % Baso % (Auto) (0-2) % Neut # (Auto) (6017-7726) /uL Lymph # (Auto) (7251-7784) /uL Riley # (Auto) (0-900) /uL Eos # (Auto) (0-450) /uL Baso # (Auto) (0-100) /uL Sodium (137-145) mmol/L Potassium (3.4-5.1) mmol/L Chloride (98-107) mmol/L Carbon Dioxide (22-32) mmol/L BUN (7-17) mg/dL Creatinine (0.52-1.04) mg/dL Estimated GFR (>60) mL/min BUN/Creatinine Ratio (6-22) Glucose (80-110) mg/dL Lactate (0.7-2.1) mmol/L Calcium (8.4-10.2) mg/dL Total Bilirubin (0.2-1.3) mg/dL AST (14-36) IU/L ALT (<35) IU/L Alkaline Phosphatase (38-126) U/L Ammonia (9-30) umol/L Total Creatine Kinase (30-135) U/L Troponin I (0.01-0.034) ng/mL NT-Pro-B Natriuret Pep 3090 H (<450) pg/mL Total Protein (6.3-8.2) g/dL Albumin (3.5-5.0) g/dL Globulin (1.7-4.1) g/dL Albumin/Globulin Ratio (1.0-2.8) Procalcitonin (<0.5) ng/mL Urine RBC (0-5/HPF) Urine WBC (0-5/HPF) Ur Squamous Epith Cells (0-5/HPF) Urine Bacteria (None) Hyaline Casts (None) Ur Culture Indicated? U Opiates 300ng/mL cut Negative (Negative) Ur Oxycodone Screen Negative (Negative) Urine Methadone Screen Negative (Negative) Ur Barbiturates Screen Negative (Negative) U Tricyclic Antidepress Negative (Negative) Ur Phencyclidine Scrn Negative (Negative) Ur Amphetamines Screen Negative (Negative) U Methamphetamines Scrn Negative (Negative) Ur MDMA Scrn (Ecstasy) Negative (Negative) U Benzodiazepines Scrn Negative (Negative) Urine Cocaine Screen Negative (Negative) U Marijuana (THC) Screen Negative (Negative) SARS-CoV-2 (PCR) Negative (Negative) Influenza A (RT-PCR) Flu a negative (NEGATIVE) Influenza B (RT-PCR) Flu b negative (NEGATIVE) RSV (PCR) Negative (Negative) 05/25/23 Range/Units 19:17 WBC (4.5-11.0) X10^3/uL RBC (4.0-5.2) X10^6/uL Hgb (12.0-16.0) g/dL Hct (36-46) % MCV (80-100) fL MCH (26-34) PG MCHC (30-36) % RDW (11.6-14.8) % Plt Count (150-400) X10^3/uL Neut % (Auto) (50-75) % Lymph % (Auto) (25-40) % Riley % (Auto) (3-14) % Eos % (Auto) (2-4) % Baso % (Auto) (0-2) % Neut # (Auto) (1258-3407) /uL Lymph # (Auto) (5990-6054) /uL Riley # (Auto) (0-900) /uL Eos # (Auto) (0-450) /uL Baso # (Auto) (0-100) /uL Sodium (137-145) mmol/L Potassium (3.4-5.1) mmol/L Chloride (98-107) mmol/L Carbon Dioxide (22-32) mmol/L BUN (7-17) mg/dL Creatinine (0.52-1.04) mg/dL Estimated GFR (>60) mL/min BUN/Creatinine Ratio (6-22) Glucose (80-110) mg/dL Lactate (0.7-2.1) mmol/L Calcium (8.4-10.2) mg/dL Total Bilirubin (0.2-1.3) mg/dL AST (14-36) IU/L ALT (<35) IU/L Alkaline Phosphatase (38-126) U/L Ammonia (9-30) umol/L Total Creatine Kinase (30-135) U/L Troponin I (0.01-0.034) ng/mL NT-Pro-B Natriuret Pep (<450) pg/mL Total Protein (6.3-8.2) g/dL Albumin (3.5-5.0) g/dL Globulin (1.7-4.1) g/dL Albumin/Globulin Ratio (1.0-2.8) Procalcitonin (<0.5) ng/mL Urine RBC 0-1/hpf (0-5/HPF) Urine WBC None seen (0-5/HPF) Ur Squamous Epith Cells 0-1 /hpf (0-5/HPF) Urine Bacteria None seen (None) Hyaline Casts 0-1/lpf (None) Ur Culture Indicated? Cult not indicated U Opiates 300ng/mL cut (Negative) Ur Oxycodone Screen (Negative) Urine Methadone Screen (Negative) Ur Barbiturates Screen (Negative) U Tricyclic Antidepress (Negative) Ur Phencyclidine Scrn (Negative) Ur Amphetamines Screen (Negative) U Methamphetamines Scrn (Negative) Ur MDMA Scrn (Ecstasy) (Negative) U Benzodiazepines Scrn (Negative) Urine Cocaine Screen (Negative) U Marijuana (THC) Screen (Negative) SARS-CoV-2 (PCR) (Negative) Influenza A (RT-PCR) (NEGATIVE) Influenza B (RT-PCR) (NEGATIVE) RSV (PCR) (Negative) Point of Care Testing Glucose POC 110 Urine Dip Bedside Urine Glucose Negative Bedside Urine Bilirubin - Negative Bedside Urine Ketone - Negative Urine Specific [place] 1.015 Bedside Urine Occult Blood - Negative Bedside Urine pH 6.0 Bedside Urine Protein + 30 Bedside Urine Urobilinogen - Negative Bedside Urine Nitrite - Negative Bedside Urine Leukocytes - Negative Esterase Imaging Data Chest x-ray: Radiologist's Impression: PROCEDURE:? XR CHEST 1V ? INDICATIONS:? altered mental status ? TECHNIQUE:? One view of the chest was acquired.? ? COMPARISON:? [facility], CT, CT ANGIO CHEST PE, 03/25/2023, 0:00.? [facility], CR, XR CHEST 1V, 03/24/2023, 19:05.? [facility], CR, XR CHEST 2V, 03/30/2023, 15:34. ? FINDINGS:? ? Surgical changes and devices:? Surgical clips in left midlung zone.? ? Lungs and pleura:? Chronic opacification of the left hemithorax, likely secondary to large left pleural effusion.? Right lung is clear.? No pleural effusions or pneumothorax. ? ? Mediastinum:? Mediastinal contours appear normal.? Heart size is normal.? ? Bones and chest wall:? No suspicious bony lesions.? Overlying soft tissues appear unremarkable.? ? ? IMPRESSION:? ? 1. Chronic opacification of the left hemithorax likely secondary to a large left pleural effusion.? Overall, the appearance is stable. ? 2. Right lung is clear.? ? ? Dictated by: Rosalva Walker M.D. on 05/25/2023 at 17:56 ECG Data Interpretation: Sinus rhythm rate 100 WV interval 162 QRS 94 QTC 451 low voltage similar to previous EKG ST depression and T-wave inversion noted V5 V6 more pronounced MDM Narrative Medical decision making narrative: Patient is 77-year-old female multiple medical problems including breast cancer lung cancer recent pericardial effusion presenting today with significant confusion. Actually saw and evaluated her previously today she has significant mental status change. She is able to follow commands however going through NIH stroke scale was very difficult lots of coaching required. No source of infection found concern for probable CVA/TIA. Blood work has been reviewed. No leukocytosis or anemia although mild left shift electrolytes within normal limits no CHRIS, liver enzymes minimally elevated but not considered clinical significant she is negative ammonia. Negative troponin. Negative respiratory is get it they gave urinalysis. She is given aspirin. Dr. Latham updated on patient's symptoms test results kindly accepts patient. Discharge Plan Departure Patient Disposition: Admitted as Observation Clinical Impression: Brain TIA, Metabolic encephalopathy Admit Date/Time: 05/25/23 20:24 Admit Provider: Deepali Latham
[2023-05-25 18:09] LABS: Alanine Aminotransferase 53 IU/L (<35); Albumin 4.3 g/dL (3.5-5.0); Albumin Globulin Ratio 1.1 (1.0-2.8); Alkaline Phosphatase 369 U/L (38-126); Aspartate Aminotransferase 38 IU/L (14-36); BUN Creatinine Ratio 33.3 (6-22); Bilirubin Total 0.9 mg/dL (0.2-1.3); Blood Urea Nitrogen 25 mg/dL (7-17); Carbon Dioxide 25 mmol/L (22-32); Chloride 100 mmol/L (98-107); Estimated Glomerular Filt Rate > 60 mL/min (>60); Globulin 3.8 g/dL (1.7-4.1); Glucose 111 mg/dL (80-110); HEMOLYSIS < 15 (0-50); Potassium 4.4 mmol/L (3.4-5.1); Sodium 137 mmol/L (137-145); Total Protein 8.1 g/dL (6.3-8.2)
--- NOTE | 2023-05-25 18:11 | DI.CT.S_ITS ---
PROCEDURE: CT ANGIO CHEST PE PROTOCOL INDICATIONS: pericardial effusion TECHNIQUE: After the administration of intravenous contrast, 2 mm thick sections acquired from the pulmonary apices to the posterior costophrenic angles. 3-dimensional maximum intensity projection (MIP) coronal and sagittal reformats were then acquired through the thorax. For radiation dose reduction, the following was used: automated exposure control, adjustment of mA and/or kV according to patient size. COMPARISON: [facility], CT, CT ANGIO CHEST PE, 03/25/2023, 0:00. [facility], [place], PET NECK TO MID THIGH, 04/28/2023, 9:56. [facility], CR, XR CHEST 1V, 05/25/2023, 17:30. [facility], CT, CT ANGIO HEAD AND NECK, 05/25/2023, 18:14. [facility], CT, CT HEAD/BRAIN WO CON, 05/25/2023, 18:14. FINDINGS: Image quality: Excellent. Pulmonary arteries: Pulmonary arteries are normal in size, and demonstrate no intraluminal filling defects to suggest central pulmonary embolism. Lungs and pleura: Persistent significant consolidation can be seen involving the anterior left lung, with narrowing of the left upper lobe and the left lower lobe bronchi. Perihilar opacity is seen. There is a small left-sided pleural effusion. Mediastinum: There is a mild pericardial effusion seen, which is clearly improved compared to the 03/25/2023 examination. There is shift of the mediastinum to the left. Heart size is normal. No mediastinal or hilar adenopathy. Thoracic aorta is normal in caliber and enhancement. Esophagus is normal in caliber, without hiatal hernia. Bones and chest wall: No suspicious bony lesions. Ribs and thoracic spine appear intact throughout. Age-appropriate bony degenerative changes are seen. Thyroid gland demonstrates no significant abnormality. No axillary or supraclavicular adenopathy. Abdomen: Visualized upper abdominal solid organs appear normal in the early arterial phase of enhancement. IMPRESSION: A mild pericardial effusion is seen, which is clearly improved compared to 03/25/2023. Significant consolidation can again be seen involving the left lung, which is similar to the prior CT and attributed to neoplasm. No pulmonary embolism is seen. Small left-sided pleural effusion seen. Dictated by: Niels aHines M.D. on 05/25/2023 at 18:18 Approved by: Niels Haines M.D. on 05/25/2023 at 18:22
[2023-05-25 18:18] LABS: Lactate (Lactic Acid) 1.2 mmol/L (0.7-2.1)
[2023-05-25 18:19] LABS: Creatine Kinase 28 U/L (30-135)
[2023-05-25 18:32] LABS: Troponin I < 0.012 ng/mL (0.01-0.034)
[2023-05-25 18:37] LABS: Procalcitonin 0.11 ng/mL (<0.5)
[2023-05-25 19:08] LABS: NT-proBNP (BNP-Adult 18+) 3090 pg/mL (<450)
[2023-05-25 19:22] LABS: Influenza A - CEPHEID Flu A NEGATIVE (NEGATIVE); Influenza B - CEPHEID Flu B NEGATIVE (NEGATIVE); Respiratory Syncytial Virus Negative (Negative)
[2023-05-25 19:31] LABS: COVID-19 CEPHEID 4-PLEX PCR Negative (Negative)
[2023-05-25 19:45] LABS: Bacteria Urine None Seen; Culture Indicated Urine Cult Not Indicated; Hyaline Casts Urine 0-1/LPF; RBC Urine 0-1/HPF (0-5/HPF); Squamous Epithelial Cell Urine 0-1 /HPF (0-5/HPF); WBC Urine None Seen (0-5/HPF)
[2023-05-25 19:58] LABS: UR Morphine/Opiate cutoff 300 Negative (Negative); Ur Creatinine Normal (Normal); Ur Specific Gravity Normal (Normal); Urine Amphetamines Negative (Negative); Urine Barbiturates Negative (Negative); Urine Benzodiazepines Negative (Negative); Urine Cocaine Negative (Negative); Urine MDMA Negative (Negative); Urine Methadone Negative (Negative); Urine Methamphetamines Negative (Negative); Urine Oxycodone Negative (Negative); Urine Phencyclidine Negative (Negative); Urine Tetrahydrocannabinol Negative (Negative); Urine Tricyclic Antidepressant Negative (Negative); Urine pH Normal (Normal)
[2023-05-25] MEDS: FUROSEMIDE 40 MG/4 ML VIAL IV (20:43)
[2023-05-25] MEDS: ASPIRIN EC 325 MG TABLET PO (20:43)
[2023-05-25] MEDS: PANTOPRAZOLE DR 40 MG TABLET PO (22:24)
[2023-05-25] MEDS: FAMOTIDINE 20 MG TABLET PO (22:24)
[2023-05-25] MEDS: GABAPENTIN 300 MG CAPSULE 900 MG PO (22:24)
[2023-05-26 04:41] VITALS: BP 115/70; PULSE 95; TEMP 36.5; O2SAT 94
[2023-05-26 06:00] LABS: Add Manual Diff / Slide Review NO; Basophils Absolute Auto 100 /uL (0-100); Basophils Percent Auto 1.1 % (0-2); Eosinophils Absolute Auto 200 /uL (0-450); Eosinophils Percent Auto 3.4 % (2-4); Hematocrit 31.1 % (36-46); Hemoglobin 10.3 g/dL (12.0-16.0); Lymphocytes Absolute Auto 700 /uL (1100-4500); Lymphocytes Percent Auto 14.9 % (25-40); Mean Corpuscular HGB Conc 33.3 % (30-36); Mean Corpuscular Hemoglobin 27.8 PG (26-34); Mean Corpuscular Volume 83.6 fL (80-100); Monocytes Absolute Auto 500 /uL (0-900); Monocytes Percent Auto 11.2 % (3-14); Neutrophils Absolute Auto 3400 /uL (1500-7000); Neutrophils Percent Auto 69.4 % (50-75); Platelet Count 306 X10^3/uL (150-400); Red Blood Cell Count 3.72 X10^6/uL (4.0-5.2); Red Cell Distribution Width 19.1 % (11.6-14.8); White Blood Cell Count 4.9 X10^3/uL (4.5-11.0)
[2023-05-26 06:01] LABS: INR 1.3 (0.9-1.3); Prothrombin Time 15.5 SECONDS (10.1-12.7)
[2023-05-26 06:10] LABS: Alanine Aminotransferase 44 IU/L (<35); Albumin 3.9 g/dL (3.5-5.0); Albumin Globulin Ratio 1.1 (1.0-2.8); Alkaline Phosphatase 334 U/L (38-126); Aspartate Aminotransferase 32 IU/L (14-36); BUN Creatinine Ratio 28.4 (6-22); Blood Urea Nitrogen 21 mg/dL (7-17); Calcium 9.9 mg/dL (8.4-10.2); Carbon Dioxide 28 mmol/L (22-32); Chloride 99 mmol/L (98-107); Estimated Glomerular Filt Rate > 60 mL/min (>60); Globulin 3.4 g/dL (1.7-4.1); Glucose 100 mg/dL (80-110); HEMOLYSIS < 15 (0-50); Potassium 3.5 mmol/L (3.4-5.1); Sodium 135 mmol/L (137-145); Total Protein 7.3 g/dL (6.3-8.2)
[2023-05-26 06:18] LABS: NT-proBNP (BNP-Adult 18+) 3570 pg/mL (<450)
[2023-05-26 08:00] VITALS: BP 116/65; PULSE 86; RESP 18; TEMP 36.4; O2SAT 97
--- NOTE | 2023-05-26 08:40 | DI.MRI.S_ITS ---
PROCEDURE: MR HEAD/BRAIN WO CON INDICATIONS: metabolic encepholopathy TECHNIQUE: Non-contrast axial T1 spin echo, axial T2 fast spin echo, sagittal and axial FLAIR, coronal T2 fast spin echo, axial gradient echo, axial diffusion and ADC through the brain. COMPARISON: [facility], CT, CT HEAD/BRAIN WO CON, 05/25/2023, 18:14. FINDINGS: Image quality: Excellent. CSF spaces: Ventricles appear symmetric in size and shape. Basal cisterns are patent. No extra-axial fluid collections. Brain: No intracranial bleeds or mass effects. There is cerebral volume loss for age. There are periventricular and deep white matter chronic small vessel ischemic changes. Brainstem appears normal. Diffusion-weighted images show no acute ischemic insults. No chronic ischemic insults. Normal intravascular flow voids are present. Skull and face: Calvarial bone marrow is normal in signal. Orbits are normal. Sinuses: Sinuses and mastoids are clear. IMPRESSION: 1. Volume loss and small vessel ischemic disease. 2. No acute process. No recent infarct. Dictated by: Navid Barajas M.D. on 05/26/2023 at 15:39 Approved by: Navid Barajas M.D. on 05/26/2023 at 15:40
[2023-05-26 09:10] VITALS: BP 116/65
[2023-05-26] MEDS: ASPIRIN EC 325 MG TABLET PO (09:10)
[2023-05-26] MEDS: ESCITALOPRAM 10 MG TABLET 20 MG PO (09:10)
[2023-05-26] MEDS: LOSARTAN 25 MG TABLET 12.5 MG PO (09:10)
[2023-05-26] MEDS: PANTOPRAZOLE DR 40 MG TABLET PO ×2 (09:10→20:42)
[2023-05-26] MEDS: FUROSEMIDE 20 MG/2 ML VIAL IV (09:10)
[2023-05-26] MEDS: FAMOTIDINE 20 MG TABLET PO ×2 (09:10→20:43)
[2023-05-26 09:29] LABS: Ammonia (NH3) 11 umol/L (9-30)
--- NOTE | 2023-05-26 10:38 | CM.DANOTE ---
Addendum entered by DEWAYNE Metcalf 05/26/23 15:40: ADD: Per PT, pt with slight weakness but close to baseline and recommending home with family and no further PT needs. BF Original Note: Patient is a 77 yo female who was admitted on 05/25/23 for Increased Confusion. Pt has M[employer] and [employer] for insurance and her PCP is Dr. Fred Boateng. EMR was reviewed. Per MD, pt with hx of breast and lung CA and admitted with increased confusion and decrease in ambulation and TIA vs CVA r/o. Per MD, pt to have imaging and labs today and likely not stable for d/c until tomorrow. PT ordered and pending. SW met bedside with pt and explained role and pt confirms she lives in [place] with her adult Dtr Sherine and 20 yo grandson. Pt is active and independent at baseline, still drives herself some and does not use DME for ambulation. Pt states her Dtr is working real time operator from home. Pt is established with [facility] Oncologist but not currently getting treatment but has f/u appointments every 3 months and lab work. Pt confirms she feels improved and closer to her baseline with her cognition and feels less shaky and unsteady but has not ambulated much in room. Pt is hopeful for d/c home with Dtr and grandson tomorrow if labs and tests normal. Pt denies any hx of HH or SNF and currently does not feel HH would be needed but if recommended she would be open to a HH referral but anticipates no needs at d/c at this time. Plan: SW to follow for PT eval and recommendations to confirm safe d/c home with family and r/o HH. DEWAYNE Metcalf Discharge Planning/Care Management CM Discharge Assessment Start: 05/26/23 10:36 Freq: Status: Active Protocol: Document 05/26/23 10:36 BF (Rec: 05/26/23 10:38 BF [id number]) Discharge Planning Assessment Assigned Gun Examiner DEWAYNE Davis DPOA/Assigned Designee Name Chris Basurto Contact Information [phone] Advance Directives? No Advance Directives on File No History Provided By Patient,Family Member,Medical Record Has Patient been admitted in last 30 No days? Prior Living Arrangements House Household Members family Comment Dtr and 20 yo grandson Type of transporation used prior to Drives own vehicle admit Independent with ADL's Yes Is patient alert and oriented? Yes Needs Assistance With Home Chores / Shopping Caregiver for Another No Comment Likely home pending PT eval today Barriers to Discharge No Discharge Plan Home Transportation Arrangement Dtr or grandson can transport at d/c Referrals Initiated None needed Additional Comment Pending PT eval and recommendations Whiteboard Updated in Patient Room with Yes name and ext. # of Gun Examiner Review Status In Process Please Provide Date Initial DC 05/26/23 Assessment Was Performed Next Review Type Continued Stay Review
[2023-05-26 12:00] VITALS: BP 115/68; PULSE 89; RESP 16; TEMP 36.4; O2SAT 97
--- NOTE | 2023-05-26 13:01 | DI.US.S_ITS ---
PROCEDURE: US ABDOMEN LIMITED INDICATIONS: HEPATITIS TECHNIQUE: Real-time focused scanning was performed of the abdomen, with image documentation. COMPARISON: None. FINDINGS: Liver measures 14.3 centimeters. Liver has normal echotexture. No biliary dilatation. Common bile duct measures 3.6 millimeters. Gallbladder is sonographically normal. Gallbladder wall measures 1.4 millimeters. No gallstones. No pericholecystic fluid. No sonographic Garcia sign. IMPRESSION: Normal examination. Dictated by: Lindsey Gordillo MD, PhD on 05/26/2023 at 13:22 Approved by: Lindsey Gordillo MD, PhD on 05/26/2023 at 13:24
--- NOTE | 2023-05-26 13:30 | PM.HP.1 ---
History of Present Illness History of Present Illness Date Patient Seen: 05/26/23 Time Patient Seen: 08:20 Date of Onset of Symptoms: 05/25/23 Chief complaint: confusion/poor breathing Narrative: Patient is a 77-year-old female well known to me very complicated with history of lung cancer and persistent pain in her left arm and pericarditis with pericardial effusion who presents with confusion. Patient has had confusion waxing and waning since she had been diagnosed with lung cancer. She has been placed on multiple medications to control pain in her left arm which is felt to be neurologic. Patient has had an MRI of her neck and her left arm and shows impingement syndrome. Which certainly could be the cause. Patient recently was increase in her Neurontin and has been on a persistent fentanyl patch. With excellent control of her pain syndrome. No other significant change. She is had no fevers no chills no cough no nausea no vomiting no headaches. Apparently she was in her usual state of health until yesterday when she was [place] [facility] she would had apparently pretty good visit and was just completely confused. Could not find words could not interact appropriately was seeing people and talking to people she was pushing buttons on the car and trying to get out of the car was very agitated. Was brought to the emergency room. No other significant changes. Patient has had no history of significant mental changes. She is recently had a PET scan which shows some issues on the left side of the lung but nothing in her head. There had been no other changes. Patient has not really had a lot of shortness of breath although maybe some. She did have a pericardial effusion which was drained a month ago or so. With excellent results. CT scan did show that that was not large at this time. No other changes. Patient has not had any bladder changes bowel changes motor function is unremarkable otherwise no other changes. 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, cervical Hyperlipidemia Hypertension Shoulder impingement syndrome Surgical History Previous section Family History Unknown Cancer Social History household members: family lives independently: Yes occupational status: previously employed Smoking Status: Former smoker alcohol intake: current substance use type: does not use Meds Home Medications and Allergies Home Medications Medication Instructions Recorded Confirmed Type atorvastatin 40 mg tablet 40 mg PO DAILY 02/08/20 05/25/23 History acetaminophen 500 mg capsule 1,000 mg PO TID 05/25/23 05/25/23 History duloxetine 20 mg capsule,delayed 20 mg PO BID 05/25/23 05/25/23 History release famotidine 20 mg tablet 20 mg PO BEDTIME 05/25/23 05/25/23 History fentanyl 12 mcg/hr transdermal 1 patch topical Q3D 05/25/23 05/25/23 History patch gabapentin 300 mg capsule 900 mg PO 3XD 05/25/23 05/25/23 History losartan 25 mg tablet 12.5 mg PO DAILY 05/25/23 05/25/23 History omeprazole 40 mg capsule,delayed 40 mg PO BID 05/25/23 05/25/23 History release Allergies Allergy/AdvReac Type Severity Reaction Status Date / Time No Known Drug Allergies Allergy Verified 03/19/23 15:35 Review of Systems Review of Systems Narrative: Negative except as above Exam Vital Signs (past 8 hours): - 05/26/23 08:00 05/26/23 09:10 05/26/23 12:00 Temperature 97.5 F L 97.5 F L Pulse Rate 86 89 Respiratory Rate 18 16 Blood Pressure 116/65 116/65 115/68 Pulse Oximetry 97 97 Oxygen Flow Rate 0 0 Oxygen Delivery Method Room Air Oxygen Flow Rate 0 Narrative Exam Narrative: Alert female in no acute distress Mildly fatigued in appearance. HEENT exam mucous membranes moist. Neck supple without adenopathy JVD or bruits lungs are clear heart is regular rate and rhythm abdomen is soft positive bowel sounds nontender neurologic exam shows cranial nerves 2-12 are intact motor is 5/5 reflexes are symmetric she does and is oriented today. Seems to be interacting well with normal speech Objective Labs 05/26/23 04:50 05/26/23 04:50 Labs: Laboratory Results - last 24 hr 05/25/23 05/25/23 05/25/23 17:36 17:42 17:42 WBC 6.9 RBC 4.04 Hgb 11.0 L Hct 33.7 L MCV 83.4 MCH 27.2 MCHC 32.6 RDW 18.9 H Plt Count 340 Neut % (Auto) 82.7 H Lymph % (Auto) 7.2 L Campbell % (Auto) 8.0 Eos % (Auto) 1.4 L Baso % (Auto) 0.7 Neut # (Auto) 5700 Lymph # (Auto) 500 L Campbell # (Auto) 600 Eos # (Auto) 100 Baso # (Auto) 0 PT INR Sodium 137 Potassium 4.4 Chloride 100 Carbon Dioxide 25 BUN 25 H Creatinine 0.75 Estimated GFR > 60 BUN/Creatinine Ratio 33.3 H Glucose 111 H Lactate Calcium 10.0 Total Bilirubin 0.9 AST 38 H ALT 53 H Alkaline Phosphatase 369 H Ammonia < 9 L Total Creatine Kinase Troponin I NT-Pro-B Natriuret Pep Total Protein 8.1 Albumin 4.3 Globulin 3.8 Albumin/Globulin Ratio 1.1 Procalcitonin Urine RBC Urine WBC Ur Squamous Epith Cells Urine Bacteria Hyaline Casts Ur Culture Indicated? U Opiates 300ng/mL cut Ur Oxycodone Screen Urine Methadone Screen Ur Barbiturates Screen U Tricyclic Antidepress Ur Phencyclidine Scrn Ur Amphetamines Screen U Methamphetamines Scrn Ur MDMA Scrn (Ecstasy) U Benzodiazepines Scrn Urine Cocaine Screen U Marijuana (THC) Screen SARS-CoV-2 (PCR) Influenza A (RT-PCR) Influenza B (RT-PCR) RSV (PCR) 05/25/23 05/25/23 05/25/23 17:42 17:42 17:42 WBC RBC Hgb Hct MCV MCH MCHC RDW Plt Count Neut % (Auto) Lymph % (Auto) Campbell % (Auto) Eos % (Auto) Baso % (Auto) Neut # (Auto) Lymph # (Auto) Campbell # (Auto) Eos # (Auto) Baso # (Auto) PT INR Sodium Potassium Chloride Carbon Dioxide BUN Creatinine Estimated GFR BUN/Creatinine Ratio Glucose Lactate 1.2 Calcium Total Bilirubin AST ALT Alkaline Phosphatase Ammonia Total Creatine Kinase 28 L Troponin I < 0.012 NT-Pro-B Natriuret Pep Total Protein Albumin Globulin Albumin/Globulin Ratio Procalcitonin 0.11 Urine RBC Urine WBC Ur Squamous Epith Cells Urine Bacteria Hyaline Casts Ur Culture Indicated? U Opiates 300ng/mL cut Ur Oxycodone Screen Urine Methadone Screen Ur Barbiturates Screen U Tricyclic Antidepress Ur Phencyclidine Scrn Ur Amphetamines Screen U Methamphetamines Scrn Ur MDMA Scrn (Ecstasy) U Benzodiazepines Scrn Urine Cocaine Screen U Marijuana (THC) Screen SARS-CoV-2 (PCR) Negative Influenza A (RT-PCR) Influenza B (RT-PCR) RSV (PCR) 05/25/23 05/25/23 05/25/23 17:42 18:40 19:17 WBC RBC Hgb Hct MCV MCH MCHC RDW Plt Count Neut % (Auto) Lymph % (Auto) Campbell % (Auto) Eos % (Auto) Baso % (Auto) Neut # (Auto) Lymph # (Auto) Campbell # (Auto) Eos # (Auto) Baso # (Auto) PT INR Sodium Potassium Chloride Carbon Dioxide BUN Creatinine Estimated GFR BUN/Creatinine Ratio Glucose Lactate Calcium Total Bilirubin AST ALT Alkaline Phosphatase Ammonia Total Creatine Kinase Troponin I NT-Pro-B Natriuret Pep 3090 H Total Protein Albumin Globulin Albumin/Globulin Ratio Procalcitonin Urine RBC Urine WBC Ur Squamous Epith Cells Urine Bacteria Hyaline Casts Ur Culture Indicated? U Opiates 300ng/mL cut Negative Ur Oxycodone Screen Negative Urine Methadone Screen Negative Ur Barbiturates Screen Negative U Tricyclic Antidepress Negative Ur Phencyclidine Scrn Negative Ur Amphetamines Screen Negative U Methamphetamines Scrn Negative Ur MDMA Scrn (Ecstasy) Negative U Benzodiazepines Scrn Negative Urine Cocaine Screen Negative U Marijuana (THC) Screen Negative SARS-CoV-2 (PCR) Negative Influenza A (RT-PCR) Flu a negative Influenza B (RT-PCR) Flu b negative RSV (PCR) Negative 05/25/23 05/26/23 05/26/23 19:17 04:50 04:50 WBC 4.9 RBC 3.72 L Hgb 10.3 L Hct 31.1 L MCV 83.6 MCH 27.8 MCHC 33.3 RDW 19.1 H Plt Count 306 Neut % (Auto) 69.4 Lymph % (Auto) 14.9 L Campbell % (Auto) 11.2 Eos % (Auto) 3.4 Baso % (Auto) 1.1 Neut # (Auto) 3400 Lymph # (Auto) 700 L Campbell # (Auto) 500 Eos # (Auto) 200 Baso # (Auto) 100 PT INR Sodium 135 L Potassium 3.5 Chloride 99 Carbon Dioxide 28 BUN 21 H Creatinine 0.74 Estimated GFR > 60 BUN/Creatinine Ratio 28.4 H Glucose 100 Lactate Calcium 9.9 Total Bilirubin 1.0 AST 32 ALT 44 H Alkaline Phosphatase 334 H Ammonia Total Creatine Kinase Troponin I NT-Pro-B Natriuret Pep Total Protein 7.3 Albumin 3.9 Globulin 3.4 Albumin/Globulin Ratio 1.1 Procalcitonin Urine RBC 0-1/hpf Urine WBC None seen Ur Squamous Epith Cells 0-1 /hpf Urine Bacteria None seen Hyaline Casts 0-1/lpf Ur Culture Indicated? Cult not indicated U Opiates 300ng/mL cut Ur Oxycodone Screen Urine Methadone Screen Ur Barbiturates Screen U Tricyclic Antidepress Ur Phencyclidine Scrn Ur Amphetamines Screen U Methamphetamines Scrn Ur MDMA Scrn (Ecstasy) U Benzodiazepines Scrn Urine Cocaine Screen U Marijuana (THC) Screen SARS-CoV-2 (PCR) Influenza A (RT-PCR) Influenza B (RT-PCR) RSV (PCR) 05/26/23 05/26/23 05/26/23 04:50 04:50 09:08 WBC RBC Hgb Hct MCV MCH MCHC RDW Plt Count Neut % (Auto) Lymph % (Auto) Campbell % (Auto) Eos % (Auto) Baso % (Auto) Neut # (Auto) Lymph # (Auto) Campbell # (Auto) Eos # (Auto) Baso # (Auto) PT 15.5 H INR 1.3 Sodium Potassium Chloride Carbon Dioxide BUN Creatinine Estimated GFR BUN/Creatinine Ratio Glucose Lactate Calcium Total Bilirubin AST ALT Alkaline Phosphatase Ammonia 11 Total Creatine Kinase Troponin I NT-Pro-B Natriuret Pep 3570 H Total Protein Albumin Globulin Albumin/Globulin Ratio Procalcitonin Urine RBC Urine WBC Ur Squamous Epith Cells Urine Bacteria Hyaline Casts Ur Culture Indicated? U Opiates 300ng/mL cut Ur Oxycodone Screen Urine Methadone Screen Ur Barbiturates Screen U Tricyclic Antidepress Ur Phencyclidine Scrn Ur Amphetamines Screen U Methamphetamines Scrn Ur MDMA Scrn (Ecstasy) U Benzodiazepines Scrn Urine Cocaine Screen U Marijuana (THC) Screen SARS-CoV-2 (PCR) Influenza A (RT-PCR) Influenza B (RT-PCR) RSV (PCR) Assessment & Plan Assessment & Plan narrative: Metabolic encephalopathy. Patient does not seem to have a focal issue. While this is extremely worse than it had been she has had this coming and going. CT scan is negative she shows no evidence of infection. Does have a little bit elevation LFTs and her ammonia level is normal. There is no other significant changes. Do not think this is cancer CT is negative her PET scan was negative could this be a paraneoplastic syndrome I guess that is possible also could be related to medications. She is been a little confused since we started the gabapentin more so the fentanyl. But her pain syndrome has been very bad. Otherwise there is no changes. We discussed this. We are going to discontinue her new medicine which was not SSRI duloxetine we will discontinue gabapentin will hold fentanyl for now restart her usual antidepressant and then get MRI. Will also start an aspirin a day. Discussed with oncologist. Patient understands. Questions answered along with his her daughter. Lung cancer left side was supposed to have a bronchoscopy tomorrow. Will need to be put off. Certainly do not feel comfortable with her otherwise she is right now. Daughter understands. No other change. Will discuss with oncologist. History of gastritis will continue omeprazole. History of hypertension continue into losartan GI prophylaxis on meds. DVT prophylaxis should be low risk is mobile continue mechanical Code status full. Disposition. Will obtain all labs imaging expect discharge tomorrow unless change Quality VTE Deep Vein Thrombosis/Pulmonary Embolism Present on Admission: No
[2023-05-26] MEDS: POTASSIUM CHLORIDE 20 MEQ TAB PO (13:39)
--- NOTE | 2023-05-26 15:02 | PT.IIE ---
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, cervical Hyperlipidemia Hypertension Shoulder impingement syndrome Physical Therapy Inpatient Evaluation/Re-Eval M1 PT/OT-IP Prior Functional Status Start: 05/26/23 11:15 Freq: NEEDED Status: Active Protocol: Document 05/26/23 14:54 [facility] (Rec: 05/26/23 15:02 [facility] [id number]) Medical Review Prior Functional Status Medical History Reviewed Yes Communication A and O x 4 Mobility and Gait independent, denies falls Activities of Daily Living and IADL's modified independent, mild SOB due to lung CA Social History Household Members family Living Arrangements House Number of Floors (Floors) Two Floors Number of Stairs To Enter/Railing? 1 Home Environment Standard Height Toilet,Walk in Shower Employment Status Retired M2 PT-IP Current Condition Start: 05/26/23 11:15 Freq: NEEDED Status: Active Protocol: Document 05/26/23 14:54 [facility] (Rec: 05/26/23 15:02 [facility] [id number]) Physical Therapy Current Condition Current Condition Evaluation Date 05/26/23 M3 PT-IP Subjective Start: 05/26/23 11:15 Freq: NEEDED Status: Active Protocol: Document 05/26/23 14:54 [facility] (Rec: 05/26/23 15:02 [facility] [id number]) Subjective Physical Therapy Visit Type Type Initial Evaluation Visit Start Time 02:30 Visit Stop Time 02:57 Total Visit Minutes 27 Number of PANTOGRAPH TRANSFERRER Visits 0 Physical Therapy Visit Comments Patient Comments Patient reports she feels she is back to baseline Patient Goals be discharged home Therapy Pain Assessment Pain When Pain Assessed denied M4 PT-IP Mobility and Gait Start: 05/26/23 11:15 Freq: NEEDED Status: Active Protocol: Document 05/26/23 14:54 [facility] (Rec: 05/26/23 15:02 [facility] [id number]) PT-Bed Mobility Assessment Supine to Sit Supine to Sit Independent,Head of Bed Elevated Sit to Supine Sit to Supine Independent PT-Transfer Assessment Sit to and From Stand Sit to and from Stand Independent Equipment Transfer Assistive Device None Transfer Ability Level of Assist Independent Gait Assessment Gait Gait Assistance Required: Standby Assistance Distance (Feet) 50 Assistive Devices Assistive Device None Gait Deviations General Gait Pattern Within Normal Limits Comments Gait Comments in room, patient declined to walk outside of room PT-Balance Assessment Sitting Balance and Reactions Static Sitting Balance Ability Normal Dynamic Sitting Balance Ability Normal Standing Balance and Reactions Static Standing Balance Ability Good Dynamic Standing Balance Ability Fair Balance Tests Single Limb Standing 10 sec right, 7 sec left Tandem Standing 20 sec M5 PT-IP Objective Assessments Start: 05/26/23 11:15 Freq: NEEDED Status: Active Protocol: Document 05/26/23 14:54 [facility] (Rec: 05/26/23 15:02 [facility] [id number]) Orientation Orientation/Cognition Level of Alertness Alert Orientation Name,Place,Situation Language Function Ability No Deficits Noted Safety Awareness Understands Safety Issues Memory Description No Deficits Noted Gross Range of Motion Upper Extremity ROM Assessment Within Functional Limits Lower Extremity ROM Assessment Within Functional Limits Strength Upper Extremity Strength Shoulder 5R, 4/L Elbow 5R, 4 L Wrist 5R,4 L Lower Extremity Strength Assessment Within Functional Limits Coordination Assessment Gross Coordination Gross Coordination WNL Assessment Finger to Nose Test Normal Performance Pronation/Supination Test Normal Performance Sensation Assessment Sensation Gross Sensation WNL Muscle Tone Muscle Tone WNL Yes M6 PT-IP Treatment Start: 05/26/23 11:15 Freq: NEEDED Status: Active Protocol: Document 05/26/23 14:54 [facility] (Rec: 05/26/23 15:02 [facility] [id number]) Physical Therapy Treatment Education Education Provided Safety M7 PT-IP Assessment and Plan Start: 05/26/23 11:15 Freq: NEEDED Status: Active Protocol: Document 05/26/23 14:54 [facility] (Rec: 05/26/23 15:02 [facility] [id number]) PT Summary Assessment and Plan Potential Rehabilitation Potential Excellent Status of Condition at Evaluation Stable Summary Assessment Summary Patient evaluated and cleared for discharge from PT standpoint. Mild weakness left UE but patient reports she has been dealing with a left arm pain and numbness issue for awhile. Safe with all mobility skills, able to ambulate in her room safely without LOB. Declined to walk out in hallway or do stairs. Able to balance on right foot 10 sec, left 7 sec, tandem stand 30 sec. No PT needs identified. Frequency of Treatment Frequency Of Treatment Discharge Recommendations To Nursing Amount of Assist Needed Standby Assistance Discharge Recommendations PT Discharge Recommendations Home Transportation Needs at Discharge Private Vehicle
[2023-05-26 16:00] VITALS: BP 101/52; RESP 16; TEMP 36.4; O2SAT 98
[2023-05-26] MEDS: ENOXAPARIN 40 MG/0.4 ML SYRINGE SUBCUT (17:45)
[2023-05-26 20:00] VITALS: BP 133/79; PULSE 94; RESP 18; TEMP 36.3; O2SAT 98
[2023-05-26] MEDS: ATORVASTATIN 20 MG TABLET 40 MG PO (20:42)
[2023-05-27] VITALS: BP 118/71; PULSE 87; RESP 17; TEMP 36.2; O2SAT 94
[2023-05-27 04:00] VITALS: BP 126/58; PULSE 88; RESP 17; TEMP 36.3; O2SAT 99
--- NOTE | 2023-05-27 04:43 | PC.NURSE ---
Pt woke at 2200 and 0200 anxious and confused, A&O to self and birthday, asking Where are my children, and why did they leave me here? Pt consolable upon reorientation, but after 0200 pt remained awake, anxious and forgetful, getting out of bed frequently to look out the window for her children. With reassurance and explanation, pt settles [id number] min periods.
[2023-05-27 05:22] LABS: Add Manual Diff / Slide Review NO; Basophils Absolute Auto 100 /uL (0-100); Basophils Percent Auto 1.3 % (0-2); Eosinophils Absolute Auto 200 /uL (0-450); Eosinophils Percent Auto 4.8 % (2-4); Hematocrit 33.9 % (36-46); Lymphocytes Absolute Auto 800 /uL (1100-4500); Lymphocytes Percent Auto 15.7 % (25-40); Mean Corpuscular HGB Conc 32.6 % (30-36); Mean Corpuscular Hemoglobin 27.1 PG (26-34); Mean Corpuscular Volume 83.2 fL (80-100); Monocytes Absolute Auto 500 /uL (0-900); Monocytes Percent Auto 10.5 % (3-14); Neutrophils Absolute Auto 3400 /uL (1500-7000); Neutrophils Percent Auto 67.7 % (50-75); Platelet Count 333 X10^3/uL (150-400); Red Blood Cell Count 4.07 X10^6/uL (4.0-5.2); Red Cell Distribution Width 18.4 % (11.6-14.8); White Blood Cell Count 5.1 X10^3/uL (4.5-11.0)
[2023-05-27 05:59] LABS: Alanine Aminotransferase 51 IU/L (<35); Albumin 4.1 g/dL (3.5-5.0); Albumin Globulin Ratio 1.1 (1.0-2.8); Alkaline Phosphatase 381 U/L (38-126); Aspartate Aminotransferase 47 IU/L (14-36); BUN Creatinine Ratio 33.7 (6-22); Bilirubin Total 0.8 mg/dL (0.2-1.3); Blood Urea Nitrogen 32 mg/dL (7-17); Calcium 10.1 mg/dL (8.4-10.2); Carbon Dioxide 27 mmol/L (22-32); Chloride 98 mmol/L (98-107); Estimated Glomerular Filt Rate > 60 mL/min (>60); Globulin 3.7 g/dL (1.7-4.1); Glucose 100 mg/dL (80-110); HEMOLYSIS < 15 (0-50); Potassium 4.1 mmol/L (3.4-5.1); Sodium 135 mmol/L (137-145); Total Protein 7.8 g/dL (6.3-8.2)
[2023-05-27 07:43] VITALS: BP 146/74; PULSE 103; RESP 16; TEMP 36.6; O2SAT 95
[2023-05-27 08:45] VITALS: BP 146/74; PULSE 103
[2023-05-27] MEDS: PANTOPRAZOLE DR 40 MG TABLET PO (08:45)
[2023-05-27] MEDS: LOSARTAN 25 MG TABLET 12.5 MG PO (08:45)
[2023-05-27] MEDS: ESCITALOPRAM 10 MG TABLET 20 MG PO (08:45)
[2023-05-27] MEDS: ASPIRIN EC 325 MG TABLET PO (08:45)
--- NOTE | 2023-05-27 09:04 | P.DS_ITS ---
History of Present Illness History of Present Illness Date Patient Seen: 05/27/23 Time Patient Seen: 09:04 Date of Onset of Symptoms: 05/25/23 Chief complaint: confusion/poor breathing Narrative: Patient is a 77-year-old female well known to me very complicated with history of lung cancer and persistent pain in her left arm and pericarditis with pericardial effusion who presents with confusion. Patient has had confusion waxing and waning since she had been diagnosed with lung cancer. She has been placed on multiple medications to control pain in her left arm which is felt to be neurologic. Patient has had an MRI of her neck and her left arm and shows impingement syndrome. Which certainly could be the cause. Patient recently was increase in her Neurontin and has been on a persistent fentanyl patch. With excellent control of her pain syndrome. No other significant change. She is had no fevers no chills no cough no nausea no vomiting no headaches. Apparently she was in her usual state of health until yesterday when she was coming [place] [facility] she would had apparently pretty good visit and was just completely confused. Could not find words could not interact appropriately was seeing people and talking to people she was pushing buttons on the car and trying to get out of the car was very agitated. Was brought to the emergency room. No other significant changes. Patient has had no history of significant mental changes. She is recently had a PET scan which shows some issues on the left side of the lung but nothing in her head. There had been no other changes. Patient has not really had a lot of shortness of breath although maybe some. She did have a pericardial effusion which was drained a month ago or so. With excellent results. CT scan did show that that was not large at this time. No other changes. Patient has not had any bladder changes bowel changes motor function is unremarkable otherwise no other changes. Discharge Providers Provider Date of admission: 05/25/23 20:24 Discharge Date: 05/27/23 Primary care physician: Fred Boateng MD Consults: 05/26/23 08:42 Consult to Physical Therapy Evaluate & Treat Comment: weakness, balance change Physician Instructions: Evaluate and Treat Discharge provider: Fred Boateng MD Summary Hospital Course Discharge Diagnosis: Metabolic encephalopathy Hepatitis Left arm pain Lung cancer left side History of gastritis Hypertension Hospital Course: Metabolic encephalopathy. Patient was admitted and was confused although improved by the time I saw her in the morning. CT scan MRI and neurologic exam continued to be normal over the 24 hours. Patient still was mildly confused but otherwise seem to be improving. Discussed with her oncologist who does not believe this is a paraneoplastic process and believes medication probably more likely. That was felt to be the cause after all negative workup and reassuring physical exam except for her confusion. Patient is oriented but still having some confusion. Certainly better than it was. We had discontinued her fentanyl patch discontinue Neurontin. And will continue. Hopefully she will clear over time. Will continue to go home on an aspirin a day just in case although I think it is low risk this is a TIA of any kind. Family understands. Questions answered. Hepatitis. Patient with no symptoms. Mildly elevated liver enzymes. Maybe secondary to her cancer ultrasound shows no evidence of lesion PET scan previously had been negative and at this point we will follow as outpatient. Left arm pain. This has been probably the biggest issue in her day-to-day life and had got it controlled with medication but I think the medication are the issues and will have to see how it goes. She understands. We will follow. She has an appointment with Dr. Bond next week and hopefully between those things we can make her comfortable. Still etiology is still unclear but probably neurologic. Lung cancer. Stable. Needs bronchoscopy will have to be rescheduled was supposed to be today. But I think that would not be a good idea. Otherwise as per oncologist. History of gastritis stable continue usual PPI. History of hypertension stable. Continue usual PPI. Exam Vital Signs (past 8 hours): - 05/27/23 04:00 05/27/23 07:43 05/27/23 08:45 Temperature 97.3 F L 97.9 F Pulse Rate 88 103 H 103 H Respiratory Rate 17 16 Blood Pressure 126/58 L 146/74 H 146/74 H Pulse Oximetry 99 95 Oxygen Flow Rate 0 0 Oxygen Delivery Method Room Air Oxygen Flow Rate 0 Narrative Exam Narrative: Alert female in no acute distress lying in bed. Lungs are clear heart is regular rate and rhythm neurologic exam is nonfocal she is slightly confused but alert and oriented feeling that she had an 8 for 2 days although she had although she did not enjoy the food and that her IV had melted. Otherwise no changes Objective Labs 05/27/23 04:55 05/27/23 04:55 Labs: Laboratory Results - last 24 hr 05/26/23 05/27/23 05/27/23 09:08 04:55 04:55 WBC 5.1 RBC 4.07 Hgb 11.0 L Hct 33.9 L MCV 83.2 MCH 27.1 MCHC 32.6 RDW 18.4 H Plt Count 333 Neut % (Auto) 67.7 Lymph % (Auto) 15.7 L [place] % (Auto) 10.5 Eos % (Auto) 4.8 H Baso % (Auto) 1.3 Neut # (Auto) 3400 Lymph # (Auto) 800 L [place] # (Auto) 500 Eos # (Auto) 200 Baso # (Auto) 100 Sodium 135 L Potassium 4.1 Chloride 98 Carbon Dioxide 27 BUN 32 H Creatinine 0.95 Estimated GFR > 60 BUN/Creatinine Ratio 33.7 H Glucose 100 Calcium 10.1 Total Bilirubin 0.8 AST 47 H ALT 51 H Alkaline Phosphatase 381 H Ammonia 11 Total Protein 7.8 Albumin 4.1 Globulin 3.7 Albumin/Globulin Ratio 1.1 PFSH Medical History (Updated 05/25/23 @ 20:16 by Alison Potts DO) 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, cervical Hyperlipidemia Hypertension Shoulder impingement syndrome Surgical History Previous section Family History Unknown Cancer Social History household members: family lives independently: Yes occupational status: previously employed Smoking Status: Former smoker alcohol intake: current substance use type: does not use Discharge Assessment & Plan Assessment and Plan Assessment: Improved but not resolved Plan of Treatment: Discharge home follow-up on Thursday Discharge Plan Discharge Plan Patient Disposition: Home Discharge orders & Medications Prescriptions: New aspirin 325 mg Tablet,Delayed Release (Dr/Ec) 325 mg PO DAILY Qty: 100 0RF escitalopram oxalate [Lexapro] 10 mg Tablet 20 mg PO DAILY Qty: 30 0RF Continued omeprazole 40 mg capsule,delayed release(DR/EC) 40 mg PO BID losartan 25 mg tablet 12.5 mg PO DAILY famotidine 20 mg tablet 20 mg PO BEDTIME acetaminophen 500 mg Capsule 1,000 mg PO TID atorvastatin 40 mg tablet 40 mg PO DAILY Discontinued duloxetine 20 mg capsule,delayed release(DR/EC) 20 mg PO BID gabapentin 300 mg capsule 900 mg PO 3XD fentanyl 12 mcg/hr patch 72 hour 1 patch topical Q3D Follow up/Referrals: Fred Boateng MD [Primary Care Provider] - 06/01/23 (Please call for appointment) Discharge Health Status Multidrug resistant organism: No MDRO Diet/Activity/Treatments Diet: Diet as Tolerated Activity: As tolerated Visit Report/Discharge Packet Stand Alone Forms: Patient Portal/API, Stroke Signs & Symptoms Discharge Data Primary Care Provider: Fred Boateng Attending Provider: Deepali Latham Admit Date/Time: 05/25/23 20:24 Quality VTE Deep Vein Thrombosis/Pulmonary Embolism Present on Admission: No
--- NOTE | 2023-05-27 13:55 | CM.DPC ---
DCP Discharge Home Per MD, pt's labs stable and cleared by PT and medically stable to d/c home today with outpt f/u. Per RN, pt has been ambulating independently in room and family bedside and plan to assist with transport home today and no concerns noted. Plan: Patient to d/c home today via family POV and outpt f/u and no further SW needs at this time. DEWAYNE Metcalf
== END 2023-05-27 10:35 | disposition home or self-care (01) ==
LOC: ED 20:16 → SSU 20:27 → AC 20:58
PROVIDERS: Emergency Medicine; Admitting Provider Family Medicine; Emergency Provider Emergency Medicine; PCP Family Medicine; Referring Provider Emergency Medicine; Visit Provider Family Medicine
DX: G93.41 Metabolic encephalopathy (principal); R41.0 Disorientation, unspecified; R29.701 NIHSS score 1; C34.90 Malignant neoplasm of unspecified part of unspecified bronchus or lung; I10 Essential (primary) hypertension; K75.9 Inflammatory liver disease, unspecified; K29.70 Gastritis, unspecified, without bleeding; M79.622 Pain in left upper arm; Z20.822 Contact with and (suspected) exposure to COVID-19
CPT/HCPCS: 0241U; 36415; 70450; 70496; 70498; 70551; 71045; 71275; 76705; 80053; 80305; 81003; 81015; 82140; 82550; 83605; 83880; 84145; 84484; 85025; 85610; 87635; 93005; 93010; 96372; 96374; 96376; 97161; 99284; C9803; G0378; A9270; J1650; J1940; Q9967

== ENCOUNTER → 2023-06-01 17:14 | Outpatient (CLI) | payer MEDICARE, OTHER, SELFPAY ==
[2023-05-25 21:01] VITALS: BMI 24.0
--- NOTE | 2023-06-01 17:21 | DI.RAD.S_ITS ---
PROCEDURE: XR CHEST 2V INDICATIONS: ACUTE COUGH TECHNIQUE: 2 views of the chest were acquired. COMPARISON: [facility], CR, XR CHEST 1V, 05/25/2023, 17:30. FINDINGS: Surgical changes and devices: None. Lungs and pleura: Unchanged complete opacification of the left hemithorax. Minimal appearance of increased interstitial opacities are present within the right hemithorax compared to prior exam. Mediastinum: Mediastinal contours are normal. Heart size is normal. Bones and chest wall: No suspicious bony abnormalities. Soft tissues appear unremarkable. IMPRESSION: Unchanged complete left hemithorax opacification. Mild increased appearance of increased interstitial prominence within the right hemithorax which could represent edema versus interstitial pneumonia. Dictated by: Belle Brock M.D. on 06/02/2023 at 16:01 Approved by: Belle Brock M.D. on 06/02/2023 at 16:02
[2023-06-01 17:52] LABS: NT-proBNP (BNP-Adult 18+) 3050 pg/mL (<450)
== END ==
PROVIDERS: PCP Family Medicine; Referring Provider Family Medicine; Visit Provider Family Medicine
DX: R05.1 Acute cough (principal); I50.22 Chronic systolic (congestive) heart failure; I31.9 Disease of pericardium, unspecified
CPT/HCPCS: 36415; 71046; 83880

== ENCOUNTER → 2023-06-05 18:17 | Outpatient (CLI) | payer MEDICARE, OTHER, SELFPAY ==
[2023-05-25 21:01] VITALS: BMI 24.0
--- NOTE | 2023-06-05 18:19 | DI.RAD.S_ITS ---
PROCEDURE: XR CERVICAL SPINE 4V OR 5V INDICATIONS: NECK PAIN TECHNIQUE: 5 views of the cervical spine acquired. COMPARISON: [facility], CR, XR CERVICAL SPINE 2V OR 3V, 10/12/2018, 10:52. FINDINGS: Bones: No fractures or dislocations to the C6 level. Mild multilevel bony foraminal narrowing on oblique views. Mild multilevel degenerative changes with disc height loss, endplate spurring, and facet arthropathy. Soft tissues: No prevertebral soft tissue swelling. IMPRESSION: Degenerative changes of the cervical spine Dictated by: Donavan Joyner M.D. on 06/05/2023 at 18:53 Approved by: Donavan Joyner M.D. on 06/05/2023 at 18:54
--- NOTE | 2023-06-05 18:19 | DI.RAD.S_ITS ---
PROCEDURE: XR SHOULDER LT MIN 2V INDICATIONS: LEFT SHOULDER PAIN TECHNIQUE: 3 views of the shoulder were acquired. COMPARISON: [facility], CT, CT ANGIO CHEST PE PROTOCOL, 05/25/2023, 18:21. [facility], CR, XR SHOULDER RT MIN 2V, 02/08/2020, 11:42. [facility], CR, XR SHOULDER RT MIN 2V, 06/05/2023, 18:29. [facility], CR, XR CHEST 2V, 06/01/2023, 17:46. FINDINGS: Bones: No shoulder dislocation. Indeterminate lucency scapular neck. No suspicious bony lesions. Left rib fractures present as before Soft tissues: No suspicious soft tissue calcifications. IMPRESSION: Indeterminate lucency scapular neck potential fracture versus artifact. If symptoms persist, follow-up radiographs and/or CT or MRI may be helpful for further evaluation. Left rib fractures present as before. Opacification left hemithorax redemonstrated Dictated by: Donavan Joyner M.D. on 06/05/2023 at 18:56 Approved by: Donavan Joyner M.D. on 06/05/2023 at 19:00
--- NOTE | 2023-06-05 18:19 | DI.RAD.S_ITS ---
PROCEDURE: XR SHOULDER RT MIN 2V INDICATIONS: RIGHT SHOULDER PAIN TECHNIQUE: 3 views of the shoulder were acquired. COMPARISON: [facility], CR, XR CHEST 1V, 05/25/2023, 17:30. [facility], CR, XR SHOULDER RT MIN 2V, 02/08/2020, 11:42. FINDINGS: Bones: No shoulder dislocation. Possible age indeterminate Hill-Sachs deformity humeral head. Soft tissues: No suspicious soft tissue calcifications. IMPRESSION: Possible age indeterminate Hill-Sachs deformity humeral head. Otherwise no potential acute fracture identified. If symptoms persist, follow-up radiographs and/or CT or MRI may be helpful for further evaluation. Dictated by: Donavan Joyner M.D. on 06/05/2023 at 18:54 Approved by: Donavan Joyner M.D. on 06/05/2023 at 18:56
== END ==
PROVIDERS: PCP Family Medicine; Referring Provider Physical Medicine & Rehabilitation; Visit Provider Physical Medicine & Rehabilitation
DX: M47.12 Other spondylosis with myelopathy, cervical region (principal); S22.42XA Multiple fractures of ribs, left side, initial encounter for closed fracture; M50.00 Cervical disc disorder with myelopathy, unspecified cervical region; M19.011 Primary osteoarthritis, right shoulder; M75.40 Impingement syndrome of unspecified shoulder; M25.512 Pain in left shoulder
CPT/HCPCS: 72050; 73030

== ENCOUNTER → 2023-07-03 12:27 | Outpatient (CLI) | payer MEDICARE, OTHER, SELFPAY ==
[2020-09-10 23:54] VITALS: BMI 25.5
[2023-05-25 21:01] VITALS: BMI 24.0
--- NOTE | 2023-07-03 | DI.ECHO.S_ITS ---
[place] +---------+ : : [address] : [place] [address] : : : : [id number] : : : : Phone: [phone]---------+ Echocardiogram Report + + :Name: JING FERNANDEZ Study Date: 07/03/2023 Height: 59 in : :[facility] ReadingLocation: Weight: 115 lb : : Gender: Female BSA: 1.5 m2 : :: 1945 Age: 77 yrs BP: 105/68 mmHg: :Reason For Study: PERICARDIAL EFFUSION : :Ordering Physician: ANDRADE, : :RYAN Performed By: Jessie Hill : :Referring: RYAN ZAFAR : + + Interpretation Summary The ejection fraction is estimated to be 65-70%. Diastolic function could not be accurately assessed due to contradictory data. The left atrium is mildly dilated. The right ventricle is normal in size and function. No significant valvular abnormalities. Pulmonary artery pressures cannot be estimated because of the lack of a measurable TR jet velocity but the IVC suggests a CVP of around 3 mmHg. Compared to the prior study dated 03/19/2023, the pericardial effusion is no longer present. Procedure: A two-dimensional transthoracic echocardiogram with color flow and Doppler was performed. The study quality was technically difficult. Comparison is made with the echocardiogram of 03/27/2023. The patient was in sinus rhythm with heart rates between 85-90 bpm during the exam. Left Ventricle: The left ventricle is normal in size and wall thickness. The ejection fraction is estimated to be 65-70%. Diastolic function could not be accurately assessed due to contradictory data. Right Ventricle: The right ventricle is normal in size and function. Atria: The left atrium is mildly dilated. Right atrial size is normal. There is no Doppler evidence for an interatrial shunt. Mitral Valve: There is moderate mitral annular calcification. The mitral valve leaflets appear mildly thickened, but open well. There is trace mitral regurgitation. Aortic Valve: The aortic valve is trileaflet. The aortic valve opens well. There is no aortic valve stenosis. No aortic regurgitation is present. Tricuspid Valve: The tricuspid valve leaflets are thin and pliable. There is trace tricuspid regurgitation. Pulmonary artery pressures cannot be estimated because of the lack of a measurable TR jet velocity but the IVC suggests a CVP of around 3 mmHg. Pulmonic Valve: The pulmonic valve is not well seen, but is grossly normal. There is no pulmonic valvular regurgitation. Great Vessels: The aortic root is normal size. The dimensions of the ascending aorta are normal. The IVC is of normal diameter and collapses greater than 50% with a sniff. This suggests a low right atrial pressure of 3 mm Hg. Pericardium/ Pleura There is no pericardial effusion. There is no pleural effusion. MMode/2D Measurements & Calculations LVIDd: 3.6 cm LVOT diam: 2.0 cm LVIDs: 2.3 cm Ao root diam: 2.6 cm FS: 35.7 % Ao Arch Diam (Prox Trans): 2.5 cm IVSd: 1.1 cm LVPWd: 0.91 cm LV cosby. diameter/BSA (cm/m^2): 2.5 LV sys. diameter/BSA (cm/m^2): 1.6 LA A2 area: 21.2 cm2 RA long axis: 4.2 cm LA A4 area: 14.3 cm2 RA area: 13.0 cm2 LA length (vol): 4.1 cm RA vol: 34.2 ml LA vol: 62.2 ml RA : 23.4 ml/m2 LA vol index: 42.7 ml/m2 IVC diam: 1.7 cm RVD1 (basal): 4.1 cm RVD2 (mid): 3.2 cm TAPSE: 2.0 cm Doppler Measurements & Calculations Ao V2 max: 109.4 cm/sec LVOT Max Fernie: 102.0 cm/sec Ao V2 mean: 86.1 cm/sec LV V1 max P.2 mmHg Ao max P.8 mmHg LV V1 VTI: 16.6 cm Ao mean P.1 mmHg WANDA(I,D): 2.7 cm2 Ao V2 VTI: 19.3 cm WANDA(V,D): 2.9 cm2 sev ratio: 0.86 WANDA indexed to BSA (cm^2/m^2): 1.8 MV E max fernie: 83.8 cm/sec PA V2 max: 76.7 cm/sec MV A max fernie: 68.8 cm/sec PA V2 mean: 52.2 cm/sec MV E/A: 1.2 PA mean P.3 mmHg Med Peak E' Fernie: 8.8 cm/sec PA pr(Accel): 55.0 mmHg E/E' med: 9.5 Lat Peak E' Fernie: 8.3 cm/sec E/E' lat: 10.1 E/e' average: 9.8 MV dec time: 0.18 sec SV(LVOT): 52.1 ml Reading Physician:08:26 PM
--- OUTSIDE RECORDS SUMMARY | 2023-08-21 15:08 | XMS_ITS ---
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 Pt has left chestwall/breast fibrosis, now with swelling and decreased LUE range of motion. 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 Allergies No known active allergiesdocumented as of this encounter (statuses as of 02/19/2023) Medications Medication Sig Dispensed Refills Start Date End Date Status escitalopram (LEXAPRO) 20 mg tablet Take 1 tablet (20 mg total) by mouth daily 0 2021 Active atorvastatin (LIPITOR) 40 mg tablet Take 1 tablet (40 mg total) by mouth nightly 0 Active calcium carbonate (CALCIUM 500 ORAL) Take 1 tablet by mouth 2 (two) times a day 0 Active cycloSPORINE (RESTASIS) 0.05 % ophthalmic emulsion Instill 1 drop in the both eyes twice daily 0 03/23/2022 Active acetaminophen (TYLENOL) 500 mg tablet Take 1 tablet (500 mg total) by mouth 3 (three) times a day 0 Active gabapentin (NEURONTIN) 100 mg capsule Take 1 capsule (100 mg total) by mouth 3 (three) times a day 0 08/02/2022 Active Eliquis 5 mg tablet 0 10/21/2022 Activ e lidocaine (LIDODERM) 5 % patch Apply 1 patch to skin once a day 0 10/30/2022 Active famotidine (PEPCID) 20 mg tablet TAKE ONE TABLET BY MOUTH AT BEDTIME. If this seems to help follow-up with your primary care physician for a refill or call the office of [facility] and let us know if you do need a refill or try a different medication and we can call it in also. 0 01/09/2023 Active cholecalciferol, vitamin D3, (Vitamin D3) 25 mcg (1,000 unit) capsule Take 1,000 Units by mouth daily 0 Active documented as of this encounter (statuses as of 02/19/2023) Active Problems Problem Noted Date Multiple subsegmental pulmonary emboli w ithout acute cor pulmonale 11/20/2022 Radiation-induced fibrosis of soft tissu e from therapeutic procedure 2022 Adenocarcinoma of left lung 01/16/2022 Mass of upper lobe of left lung 10/15/19 22 documented as of this encounter (statuses as of 02/19/2023) Immunizations Name Administration Dates Next Due Moderna SARS-CoV-2 Vaccine Monovalent 08/13/2021 ,12/20/2020,11/22/2020 documented as of this encounter Social History Tobacco Use Types Packs/Day Years Used Date Smoking Tobacco: Former Cigarettes 0.5 20 Smokeless Tobacco: Never Alcohol Use Standard Drinks/Week Comments Yes 5 (1 standard drink = 0.6 oz pur e alcohol) Sex Assigned at Date Recorded Female 10/15/2021 1:[address] Job Start Date Occupation Industry Not on file Not on file Not on file documented as of this encounter Last Filed Vital Signs Vital Sign Reading Time Taken Comments Blood Pressure 131/71 01/23/2023 8:09 AM PDT Pulse 75 01/23/2023 8:09 AM PDT Temperature 36.1 ??C (96.9 ??F) 01/23/2023 8:09 AM PD T Respiratory Rate 16 01/23/2023 8:09 AM PDT Oxygen Saturation 97% 01/23/2023 8:09 AM PDT Inhaled Oxygen Concentration - - Weight 58.7 kg (129 lb 8 oz) 01/23/2023 8:09 AM PDT Height 152.4 cm (5') 01/23/2023 8:09 AM PDT Body Mass Index 25.29 01/23/2023 8:09 AM PDT documented in this encounter Discharge Summaries Not on filedocumented in this encounter Medications at Time of Discharge Medication Sig Dispensed Refills Start Date End Date acetaminophen (TYLENOL) 500 mg tablet Take 1 tablet (500 mg total) by mouth 3 (three) times a day 0 atorvastatin (LIPITOR) 40 mg tablet Take 1 tablet (40 mg total) by mouth nightly 0 calcium carbonate (CALCIUM 500 ORAL) Take 1 tablet by mouth 2 (two) times a day 0 cholecalciferol, vitamin D3, (Vitamin D3) 25 mcg (1,000 unit) capsule Take 1,000 Units by mouth daily 0 cycloSPORINE (RESTASIS) 0.05 % ophthalmic emulsion Instill 1 drop in the both eyes twice daily 0 03/23/2022 Eliquis 5 mg tablet 0 10/21/2022 escitalopram (LEXAPRO) 20 mg tablet Take 1 tablet (20 mg total) by mouth daily 0 2021 famotidine (PEPCID) 20 mg tablet TAKE ONE TABLET BY MOUTH AT BEDTIME. If this seems to help follow-up with your primary care physician for a refill or call the office of [facility] and let us know if you do need a refill or try a different medication and we can call it in also. 0 01/09/2023 gabapentin (NEURONTIN) 100 mg capsule Take 1 capsule (100 mg total) by mouth 3 (three) times a day 0 08/02/2022 lidocaine (LIDODERM) 5 % patch Apply 1 patch to skin once a day 0 10/30/2022 documented as of this encounter Progress Notes * Jose Jimenez MD - 01/23/2023 8:00 AM PDT RADIATION ONCOLOGY FOLLOW UP PATIENT: Sury Oropeza : 1945 ENCOUNTER DATE: 01/23/23 DIAGNOSIS: 1. Left-sided invasive breast cancer managed with breast conserving surgery and radiation (2002) and adjuvant endocrine therapy 2. Invasive non-small cell lung cancer in the left upper lobe, s/p hypofractionated radiation therapy ([id number] in 17 fxs) SUBJECTIVE: Ms.Janet Oropeza returns today for a followup having completed a course of SBRT in January 2022. She reports that after she completed her radiation in early January, she felt well with no change in her breathing or increased symptoms. She then developed pneumonia in February and was treated with a 10-day course of antibiotics, and improved. In March she has developed increased dyspnea on exertion as well as mild increased cough, productive only of clear sputum. CT scan chest from 04/17/2022 showed decreased airspace opacities in the left upper lobe compared with her pretreatment scan suggesting a response to therapy. She was also noted to have a new consolidation at the inferior anterior lingular lobe, and a new 8 mm focal density in the left lower lobe, both suggestive of multifocal infection. But pulmonary metastasis could not be ruled out. Additionally she had a slight increase of a small low density left pleural effusion as well as a new small low-density pericardial effusion. An updated CT of the chest on 05/23/22 showed increased airspace opacities at the left apex and consolidative radiopacities at the anterior aspect of the left lower lobe. Marked volume loss noted in the lingula with air bronchograms. Increased bronchial wall thickening at the hilum on the left side. The part solid nodule with surrounding groundglass opacities is redemonstrated at the left lung basemeasuring 1.1 cm, previously 8 mm. Scattered nodular subcentimeter radiopacities are noted at the posterior left lung base. Innumerable ground- glass subcentimeter nodules are visualized throughout the right lung which are new when compared with the prior study dated April 17, 2022. There are new patchy airspace opacities within the anterior aspect of the right upper lobe. Patchy airspace opacitiesare also present within the anterior aspect of the right middle lobe which are new from the prior study. Although these findings may be associated with progression of disease, a superimposed infectious etiology could also cause this appearance. Given the multifocality and air bronchograms, superimposed infection is favored. Short interval follow-up is recommended to further characterize findings. She met with Dr. Louis after her CT scan in May and he ordered a PET/CT scan which was performed on 06/12/2022. This demonstrated airspace opacity in the left upper lobe and lingula. Within theanterior inferior lateral aspect of the consolidated lung, there is abnormal FDG activity (maximum SUV 7.7), highly suspicious for recurrent lung cancer. Pleural thickening and nodularity in left hemithorax demonstrating abnormal FDG activity suspicious for pleural metastasis. There is a small leftpleural effusion. Three subpleural nodules the right lower lobe posterior medially demonstrate abnormal FDG uptake suspicious for metastasis. The patient was referred for a CT-guided biopsy of what was suspected recurrent disease on 06/27/2022. The area biopsied was the left upper lung parenchyma in addition to left basilar pleural fluid. The pathology from the left upper lung biopsy demonstrated atypical alveolar tissue, favor radiation change, no invasive carcinoma identified. The sampled pleural fluid was also negative for malignancy. Dr. Louis recommended a repeat CT scan in early August. 08/22/22: CT chest showed Consolidation of the left upper lobe is seen similar in size and distribution compared to 05/23/2022, however there is now complete consolidation with no aerated lung and no air bronchograms as was previously present. Given the persistence of this finding since 04/17/2022, neoplasm, possibly causing postobstructive pneumonia could be considered. Consider bronchoscopy of the left upper lobe. Ground-glass and solid nodule in the left lower lobe is unchanged. Stable trace left pleural effusion and pericardial effusion. 09/24/2022: PET/CT showed relatively unchanged appearance of the left upper lobe opacity with marked hypermetabolic activity (max SUV 7.3). Left lower lobe areas of nodularity, 1 focus demonstrating low-level metabolic activity (max SUV 1.9). Overall findings were not definitively convincing for metastatic foci. Mild increased pericardial effusion. Increased uptake surrounding the left scapula of uncertain significance. Mild diffuse uptake within the left breast and chest suspected to be related to prior radiation treatment. 10/20/2022: CT chest with contrast obtained at [facility] showed dense left upper lobe airspace consolidation including the lingula (infection versus malignancy). Moderate loculated left pleural effusion. Small right pleural effusion with mild right lower lobe atelectasis or infiltrate. Subsegmental pulmonary emboli in the lower lobes bilaterally. Moderate to large pericardial effusion. 01/12/2023: CT angio chest showed no pulmonary emboli. There was similar appearance of the left upper lobe consolidation (mass versus infection versus postradiation fibrosis). Patchy consolidation andgroundglass in the left lower lobe. New 7 mm solid nodule in the right upper lobe. Similar appearing large pericardial effusion. ?? Clinically Sury reports that her breathing is generally stable. She has postnasal drip and this causes occasional cough and clearing of her throat which is worse in the mornings and gets better through the day. She currently denies chest pain. She does report that her left breast has been more firm and more painful since completing the left upper lobe radiation therapy. (Recall she received left breast radiation therapy in 2002.) Since herrecent radiation to the left upper lobe of the lung has been completed, she notes her breast has been more achy and painful than it has been in the last 20 years. She notes some decreased ability to raise her left arm, relative to the right side. PHYSICAL EXAMINATION: Vitals: 01/23/23 0809 BP: 131/71 Pulse: 75 Resp: 16 Temp: 36.1 ??C (96.9 ??F) SpO2: 97% General: She is a pleasant age-appropriate female resting comfortably in the examination room in noacute distress. Neck: There is no suspicious cervical, supraclavicular, infraclavicular or axillary lymphadenopathy. Chest: Left breast shows an area of circular telangiectasias in the central breast above her nipple. The breast itself feels firm, fibrotic, notably smaller than the contralateral right side. The firmness and telangiectasias continue on the chest wall lateral to the breast both anterior and posterior to the mid axillary line. Lungs: Right lung clear. Left lung with some mild crackles over the mid to upper lung childs. Musculoskeletal: The spine and axial skeleton are without palpable tenderness. She has limited ability to raise her left arm over her head relative to the contralateral right side. Abdomen: Soft, nondistended and nontender without palpable masses or organomegaly. LABORATORY DATA: Lab Results Component Value Date WBC 5.5 01/08/2023 HGB 10.9 (L) 01/08/2023 HCT 35.1 01/08/2023 MCV 92 01/08/2023 PLT 300 01/08/2023 Chemistry Component Value Date/Time NA 135 01/08/2023 1446 K 4.1 01/08/2023 1446 CL 103 01/08/2023 1446 CO2 30 01/08/2023 1446 BUN 23.5 01/08/2023 1446 CREATININE 0.95 01/08/2023 1446 Component Value Date/Time CALCIUM 10.2 (H) 01/08/2023 1446 AST 32 01/08/2023 1446 ALT 39 (H) 01/08/2023 1446 BILITOT 0.5 01/08/2023 1446 RADIOGRAPHIC STUDIES: The patient had recent imaging as noted in the HPI above. IMPRESSION/PLAN: Ms. Oropeza is a very pleasant 77 y.o. lady with a history of left upper lobe lung adenocarcinoma s/p moderately hypofractionated radiation therapy in January 2022 (6987cGy in 17 fractions). No definite biopsy confirmed evidence of residual malignancy in the left upper lobe of the lung. It is conceivable that the PET/CT findings relate to chronic fibrosis/inflammation from the 2 prior courses of radiation to the region. It is reassuring that she does not have any concerning systemic symptoms (for example significant unexplained weight loss, etc.). I am going to refer her to physical therapy at [facility] for evaluation of her left breast/chest wall edema and fibrosis and hopefully help improve her left upper extremity range of motion. She has a follow-up with Dr. Mcfadden in March 2023. Follow-up in radiation oncology in 6 months. Thank you for the opportunity to participate in her oncologic management. This note has been generated using voice recognition software. There may be some sound alike errorsthat were not identified at the time of document correction. 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
== END ==
PROVIDERS: PCP Family Medicine; Referring Provider Nurse Practitioner Acute Care; Visit Provider Nurse Practitioner Acute Care
DX: I31.39 Other pericardial effusion (noninflammatory) (principal); I51.7 Cardiomegaly
CPT/HCPCS: 93306

== ENCOUNTER 2023-07-16 08:55 | Outpatient (CLI) | payer MEDICARE, OTHER, SELFPAY ==
[2023-05-25 21:01] VITALS: BMI 24.0
[2023-07-16] VITALS (8 sets, daily range): BP systolic 103–140; BP diastolic 58–76; PULSE 88–92; RESP 18–22; O2SAT 96–99
--- NOTE | 2023-07-16 08:56 | DI.RAD.S_ITS ---
PROCEDURE: PAIN C/T INTERLAMINAR INJECT INDICATIONS: SPINAL STENOSIS COMPARISON: [facility], CR, XR CERVICAL SPINE 4V OR 5V, 06/05/2023, 18:29. FINDINGS: Fluoroscopic spot filming was performed to verify placement of spinal needles at the C6-C7 level(s), as labeled on the films. Appropriate location(s) of the needle tip(s) was confirmed by injection of iodinated contrast. IMPRESSION: Fluoroscopy for pain management. Dictated by: Rosalva Walker M.D. on 07/16/2023 at 10:15 Approved by: Rosalva Walker M.D. on 07/16/2023 at 10:15
[2023-07-16] MEDS: MIDAZOLAM 2 MG/2 ML VIAL IV (09:36)
[2023-07-16] MEDS: DEXAMETHASONE 10 MG/ML VIAL 20 MG INJ (09:42)
[2023-07-16] MEDS: BUPIVACAINE 0.25% (PF) VIAL 2 ML INJ (09:42)
[2023-07-16] MEDS: iopamidoL 15 ML VIAL 3 ML INJ (09:43)
--- NOTE | 2023-07-16 09:53 | P.PCN_ITS ---
Date/Time/Diagnoses Date of procedure: 07/16/23 Time of procedure: 09:54 Pre-procedure diagnosis: 1. CERVICAL STENOSIS, 2. CERVICAL HNP WITH UPPER EXTREMITY RADICULAR FEATURES Post-procedure diagnosis: same Procedure Notes Procedure: 1. FLUORSCOPICALLY GUIDED CONTRAST CONTROLLED INTERLAMINAR EPIDURAL STEROID INJECTION - C6/7 TL TRU Indications: Sury is referred by Dr. Boateng for treatment of Cervical HNP with Upper Extremity Paresthesias. Physician: Fred Bond Total Fluoroscopy time (seconds): 23 Total sedation minutes: 14 Complications: none Procedure in detail & Post-procedure care: FINDINGS Cervical Stenosis due to disc deterioration and nerve root irritation and nerve root irritation DESCRIPTION OF PROCEDURE Fluoroscopically guided, contrast-controlled C6/7 translaminar epidural steroid injection with conscious sedation. Following review of allergy and review of potential side effects and complications, including, but not necessarily limited to, infection, allergic reaction, local tissue breakdown, temporary as well as permanent nerve injury, stroke, paralysis, and possible , the patient indicated that patient understood and agreed to proceed. An informed consent document was signed by the patient, witnessed by a nurse, and placed in the patient's chart. Additionally, other treatment options including modalities, medications, and physical therapy were reviewed with the patient. After review of previous anaesthesic history and IV conscious sedation the patient was deemed safe to proceed with today?s procedure with IV conscious sedation as ASA class II designation. Safety time-out was performed to confirm patient ID, procedure to be performed and site of procedure. IV sedation was accomplished with a combination of 2mg of Versed administered by the RN after DO order, titrated to patient comfort during the course of the procedure while the patient remained responsive to all verbal commands. In the prone position, following sterile prep and drape of the cervical region, the C6/7 translaminar space was identified fluoroscopically. The skin was anesthetized via a 25-gauge 1.5-inch needle with 1% lidocaine solution. At this point, a 25-gauge, 2.5-inch short bevel spinal needle was atraumatically introduced and advanced under fluoroscopic guidance into epidural space at the C6/7 translaminar space. Depth was confirmed on lateral view. Radiological data, including multiple fluoroscopic views of the cervical spine, reveal a spinal needle at the C6/7 translaminar space. Lateral views then show placement of the needle in the epidural space. Subsequent views show contrast material flowing superiorly and inferiorly in the epidural space. DSA fluoroscopy with live contrast injection, once again, confirmed no vascular or intrathecal uptake. At this point, using loss of resistance technique with saline and air, the epidural space was entered. Following negative aspiration, injection of approximately 1.5 cc of Isovue-200 with live fluoroscopy in the AP view confirmed epidural flow in the epidural space without vascular or intrathecal uptake observed. Subsequently, a test dose of 1 cc of 1% lidocaine solution was injected and patient was observed for two minutes without signs or symptoms of complications, including abdominal pain, shortness of breath, bilateral upper or lower extremity weakness, nausea and vomiting, prior to steroid injection. At this point, 2cc or 20mg of dexamethasone was then injected without incident. The patient tolerated the procedure well without signs or symptoms of compli cations prior to being transferred to the recovery area for further monitoring, The patient was then transferred to the recovery area where they were observed for an appropriate period of time after the injection. The patient reported a VAS score of 8 prior to the procedure and a post-procedure VAS of 1. POST OP INSTRUCTIONS The patient was provided a Pain Log to continue to record their response to the target-specific procedure prior to follow-up visit with the referring provider. Additionally, specific post-injection care instructions and a contact number to our office were provided if concerns arise regarding possible complications associated with the procedure are suspected.
== END 2023-07-16 10:18 | disposition home or self-care (01) ==
LOC: RAD 08:56
PROVIDERS: PCP Family Medicine; Referring Provider Physical Medicine & Rehabilitation; Visit Provider Physical Medicine & Rehabilitation
DX: M48.02 Spinal stenosis, cervical region (principal); M50.123 Cervical disc disorder at C6-C7 level with radiculopathy
CPT/HCPCS: 62321; 99152; J1100; J2250; J3490

== ENCOUNTER → 2023-08-01 09:47 | Outpatient (CLI) | payer MEDICARE, OTHER, SELFPAY ==
[2023-05-25 21:01] VITALS: BMI 24.0
--- NOTE | 2023-08-01 | DI.MRI.S_ITS ---
PROCEDURE: MR SHOULDER LT WO CON INDICATIONS: Adhesive capsulitis of left shoulder TECHNIQUE: Noncontrast oblique coronal T2 fast spin echo with fat saturation, oblique sagittal T1 spin echo and T2 fast spin echo with fat saturation, axial T1 spin echo and T2 fast spin echo with fat saturation through the shoulder. COMPARISON: [facility], CR, XR SHOULDER LT MIN 2V, 06/05/2023, 18:29. FINDINGS: Image quality: Excellent. Rotator cuff: There is low-grade intrasubstance and articular surface tearing of the anterior and mid supraspinatus tendon at the humeral insertion site. Low-grade bursal surface and intrasubstance tearing of the mid infraspinatus tendon at the musculotendinous junction extending to the infraspinatus muscle. Teres minor is intact. There is moderate to high-grade ill-defined T2 signal elevation within the subscapularis muscle diffusely. Bones and bursae: No bone marrow contusions or fractures. Moderate glenohumeral and acromioclavicular joint degeneration. The acromion demonstrates conventional anatomy, without an os acromiale. No pathologic subacromial-subdeltoid or subcoracoid bursal fluid is present. Capsule and soft tissues: Diffuse degenerative labral tearing is present. The long head of the biceps tendon demonstrates normal location and morphology. The rotator interval appears normal, without fibrosis. The coracohumeral ligament is normal in thickness. IMPRESSION: 1. Acromioclavicular and glenohumeral joint osteoarthritis. 2. Moderate to high grade tearing of the subscapularis muscle. 3. Low-grade tearing of the infraspinatus musculotendinous junction and muscle. 4. Degenerative glenoid labral tearing. Dictated by: Navid Barajas M.D. on 08/03/2023 at 10:51 Approved by: Navid Barajas M.D. on 08/03/2023 at 11:16
== END ==
PROVIDERS: PCP Family Medicine; Referring Provider Orthopaedic Surgery; Visit Provider Orthopaedic Surgery
DX: M75.02 Adhesive capsulitis of left shoulder (principal); M19.012 Primary osteoarthritis, left shoulder; M75.112 Incomplete rotator cuff tear or rupture of left shoulder, not specified as traumatic; S43.492A Other sprain of left shoulder joint, initial encounter
CPT/HCPCS: 73221